=== PATIENT | female | born 1960 | race Caucasian/White ===

== ENCOUNTER 2019-12-12 12:15 | Outpatient (CLI) | payer MEDICAID, SELFPAY ==
--- NOTE | 2019-12-12 12:26 | XR_ITS ---
WS: [id number] XR cervical spine fl/ex [id number] REASON FOR EXAM: CERVICALGA FINDINGS: Degenerated changes in the disc spaces C5-6, C6-7. There is posterior spurring seen C4, C5, C6. There is normal flexion and extension changes. XR/XR cervical spine fl/ex [id number] IMPRESSION: Cervical spondylosis Degenerated disc changes C5-C6, C6-7.
[2019-12-12 13:08] LABS: Basophils % 0.6 %; Eosinophils # 0.2 10^3/uL (0.0-0.8); Eosinophils % 4.3 %; Hematocrit 36.9 % (37.0-47.0); Hemoglobin 11.7 g/dL (11.5-15.3); Lymphocytes # 1.5 10^3/uL (0.8-4.8); Lymphocytes % 30.8 %; Mean Corpuscular HGB Conc 31.7 g/dL (30.0-36.0); Mean Corpuscular Hemoglobin 25.7 pg (28.0-34.0); Mean Corpuscular Volume 81.1 fL (81-99); Mean Platelet Volume 9.7 fL (7.4-10.4); Monocytes # 0.4 10^3/uL (0.2-0.9); Monocytes % 7.2 %; Neutrophils # 2.8 10^3/uL (1.8-7.7); Neutrophils % 56.9 %; Nucleated Red Blood Cells % 0 %; Platelet Count 258 10^3/cmm (130-400); Red Blood Count 4.55 10^6/uL (4.1-5.3); White Blood Count 4.9 10^3/uL (4.0-10.0)
[2019-12-12 13:28] LABS: Alanine Aminotransferase 13 U/L (0-33); Albumin Level 4.1 g/dL (3.5-5.2); Alkaline Phosphatase 98 IU/L (35-105); Anion Gap 12.6 (5-19); Aspartate Amino Transferase 19 U/L (0-32); Blood Urea Nitrogen 10 mg/dL (6-20); Calcium 9.4 mg/dL (8.5-10.5); Carbon Dioxide 29 mmol/L (22-29); Chloride 104 mmol/L (98-107); Chol HDL Ratio 3.47 mg/dL (0.0-4.40); Cholesterol 184 mg/dL (0-200); Globulin 3.7 g/dL (1.3-4.6); Glomerular Filtration Rate 73.4 mL/min (90-130); Glucose 82 mg/dL (65-115); HDL Cholesterol 53 mg/dL (60-100); LDL Cholesterol Calculated 106 mg/dL (50-129); Osmolality Calculated 287 mOsm/kg (285-295); Potassium 4.6 mmol/L (3.5-5.1); Sodium 141 mmol/L (136-145); Total Bilirubin 0.2 mg/dL (0.15-1.2); Total Protein 7.8 g/dL (6.6-8.7); Triglycerides 127 mg/dL (0-150)
== END 2019-12-12 12:16 | disposition home or self-care (01) ==
LOC: RAD 12:18
PROVIDERS: Family Provider Family Medicine; PCP Family Medicine; Visit Provider Family Medicine
DX: M47.892 Other spondylosis, cervical region (principal); M54.2 Cervicalgia; I10 Essential (primary) hypertension
CPT/HCPCS: 36415; 72040; 80053; 80061; 84443; 85025

== ENCOUNTER 2020-03-19 15:56 | Outpatient (CLI) | payer MEDICAID, SELFPAY ==
--- NOTE | 2020-03-19 16:03 | MR_ITS ---
WS: [id number] MRI CERVICAL SPINE NONCONTRAST TECHNIQUE: Sagittal T1, T2 and STIR imaging. Axial T2, gradient, and fiesta imaging. CLINICAL INFORMATION: CERVICALGIA COMPARISON: None. FINDINGS: Straightening of the normal cervical lordosis. Mild spondylitic changes. No high-grade central canal stenosis. Cord signal is normal. C2-C3: Moderate left facet arthropathy. Mild left and no significant right foraminal narrowing. Spina l canal is patent. C3-C4: Disc osteophyte complex with moderate left foraminal narrowing. No significant right foraminal narrowing. Tiny central protrusion. Spinal canal is patent. C4-C5: Disc osteophyte complex with a small central protrusion. Moderate to severe left and no signif icant right foraminal narrowing. Advanced left facet arthropathy. C5-C6: Disc osteophyte complex with endplate ridging. Moderate to severe bilateral bony foraminal [place]. Mild facet arthropathy with uncovertebral joint hypertrophy. C6-C7: Small central disc protrusion with slight effacement of the ventral thecal sac. Mild central c anal stenosis. Moderate right and mild left bony foraminal narrowing. C7-T1: Osteophytic ridging. Mild bilateral bony foraminal narrowing. Spinal canal is patent. Visualized brain stem structures: Normal. Prevertebral soft tissues: Normal. MR/MR cervical spin wo con* [id number] IMPRESSION: 1. Straightening of the normal cervical lordosis. No high-grade central canal stenosis. Cord signal is normal. 2. Mild central canal stenosis C4-C6 with disc osteophyte complexes and small central protrusions. 3. Moderate to severe bony foraminal narrowing worse at left C3-C4, left C4-C5 , bilateral C5-C6, and right C6-C7. 4. Tiny central disc protrusions in the upper thoracic spine at T1-T2 and T2-3 . Mild right foraminal narrowing at these levels. 5. Asymmetric moderate facet arthropathy worse at left C2-3, left C3-4, and le ft C4/5
== END 2020-03-19 15:57 | disposition home or self-care (01) ==
LOC: RADWPI 16:02
PROVIDERS: Family Provider Family Medicine; PCP Family Medicine; Visit Provider Anesthesiology Pain Medicine
DX: M47.892 Other spondylosis, cervical region (principal); M48.02 Spinal stenosis, cervical region; M51.24 Other intervertebral disc displacement, thoracic region; M25.78 Osteophyte, vertebrae
CPT/HCPCS: 72141

== ENCOUNTER 2021-11-24 16:13 | Outpatient (CLI) | payer MEDICAID, SELFPAY ==
--- NOTE | 2021-11-24 16:28 | XR_ITS ---
WS: [id number] KUB, AP view, 11/24/2021 Clinical Data: HEMATURIA PAIN OF RIGHT SIDE Comparison: None. Findings: No abnormal intraabdominal masses or calcifications are seen. There is no dilatated small bowel or ev idence of obstruction. There is air in the stomach. There is a moderate amount of fecal material in the colon. XR/XR KUB [id number] Impression: Moderate amount of fecal material in the colon.
== END 2021-11-24 16:14 | disposition home or self-care (01) ==
LOC: RAD 16:23
PROVIDERS: PCP Family Medicine; Visit Provider Nurse Practitioner Family
DX: R31.9 Hematuria, unspecified (principal)
CPT/HCPCS: 74018

== ENCOUNTER 2022-02-17 10:06 | Outpatient (CLI) | payer MEDICAID, SELFPAY ==
--- NOTE | 2022-02-17 10:18 | CT_ITS ---
WS: [id number] CT ABDOMEN PELVIS TECHNIQUE: Noncontrast CT of the abdomen and pelvis with coronal and sagittal reformatted images. CLINICAL INFORMATION: ABDOMINAL PAIN/R FLANK PAIN COMPARISON: CT 2014 DLP: 1191.[address] scans at [facility] use at least one of these dose optimization techniques: automated e xposure control; mA and/or kV adjustment per patient size (includes targeted exams where dose is matc hed to clinical indication); or iterative reconstruction. FINDINGS: Lung bases are well aerated. Noncontrast liver is normal. Normal noncontrast spleen. Normal GE juncti on. Adrenal glands are normal. No obstructing renal or ureteral calculi. No hydronephrosis in either kidn ey. Tiny nonobstructing LEFT calyceal tip calculus. Normal noncontrast pancreas. Normal caliber abdominal aorta. Sigmoid diverticulosis. No evidence of acute diverticulitis. Tiny fat-containing umbilical hernia. No free fluid in the abdomen or pelvis. Grade 1 anterolisthesis L4 on L5 with vacuum disc phenomenon. CT/CT abdomen pelvis wo con [id number] IMPRESSION: 1. No obstructing renal or ureteral calculi. No hydronephrosis in either kidne y. 2. Tiny nonobstructing LEFT calyceal tip calculus. 3. No acute findings in the abdomen or pelvis. 4. Grade 1 anterolisthesis L4 on L5. This is progressed compared to 2014 with vacuum disc phenomenon 5. Prior hysterectomy.
== END 2022-02-17 10:07 | disposition home or self-care (01) ==
PROVIDERS: PCP Family Medicine; Visit Provider Nurse Practitioner Family
DX: R10.9 Unspecified abdominal pain (principal); M43.10 Spondylolisthesis, site unspecified
CPT/HCPCS: 74176

== ENCOUNTER 2022-03-24 03:17 | Emergency (ER) | payer MEDICAID, SELFPAY ==
[2022-03-24 03:44] VITALS: BP 115/73; PULSE 80; RESP 17; O2SAT 97; BMI 29.5
[2022-03-24] MEDS: ketorolac 30 mg/mL INJ IM (03:44)
[2022-03-24] MEDS: tetracaine 0.5% Op Soln 4 mL Btl 1 DROP EYE-LEFT (03:44)
[2022-03-24 03:49] VITALS: BP 115/73; PULSE 81; RESP 16; O2SAT 98
--- NOTE | 2022-03-24 03:50 | W.ED.EYEPROB ---
HPI - Eye Problem General: Chief complaint: Eye Problems Stated complaint: issues with left eye/seeing bright lights Time Seen by Provider: 03/24/22 03:31 Source: patient Mode of arrival: ambulatory Limitations: no limitations History of Present Illness: 61-year-old female who states that she has been seeing visual floaters through her left eye since Monday. She states that she actually saw an roll forming machine set up operator yesterday and is actually improved but she states she is concerned because tonight she saw brief flashing lights and had a mild headache she rated a 2 out of 10 and 1 make sure she had nothing going on. She denies any blurred vision denies any curtain coming down over her vision denies any blindness. She denies any pain does have a mild left-sided headache she rates a 2 out of 10. She states she is feels like she sees this floater that is actually decreased. Associated symptoms: Reports headache(s); Denies fever(s), nausea, neck pain or vomiting Review of Systems Const: Denies: fever(s), chills, body aches or change in appetite Eyes: Reports: seeing flashes ENMT: Denies: throat pain or dental pain Card: Denies: chest pain Resp: Denies: dyspnea GI: Denies: abdominal pain, nausea, vomiting or diarrhea : Denies: dysuria Musc: Denies: neck pain or back pain Skin/Breast: Denies: rash Neuro: Reports: headache(s) Psych: Denies: depression Agapito/Lymph: Denies: easy bruising All/Imm: Denies: urticaria Physical Exam Const: COMMON NORMALS: no acute distress, patient oriented x3 and healthy appearing HENMT: COMMON NORMALS: normocephalic and atraumatic HEAD & SCALP: normocephalic and atraumatic Eye: COMMON NORMALS: Equal, round and reactive pupils present and EOMs intact bilaterally PUPIL: Yes Equal, round and reactive pupils present Neck/C-Spine: COMMON NORMALS: full ROM and supple Chest: COMMONS NORMALS: normal inspection of the chest and normal palpation of entire chest wall Resp: COMMON NORMALS: normal respiratory effort, No retractions, No use of accessory muscles and clear to auscultation bilaterally AUSCULTATION: clear to auscultation bilaterally Cardio: COMMON NORMALS: regular rate, regular rhythm and No murmurs present (Cardio) RATE: regular rate RHYTHM: regular rhythm GI: COMMON NORMALS: Normal to inspection, nondistended, normoactive bowel sounds present, Soft to palpation, non-tender and no masses PALPATION: Yes Soft to palpation Extremity: COMMON NORMALS: normal to inspection and full ROM Neuro: COMMON NORMALS: patient oriented x3, moves all extremities and no focal motor deficits Psych: COMMON NORMALS: mental status grossly normal, Normal thought process present and cooperative THOUGHT PROCESS: Normal thought process present Skin: COMMON NORMALS: no rashes or lesions noted and no wounds GENERAL SKIN EXAM: no rashes or lesions noted Course Vital Signs: Vital signs: Vital Signs Pulse Rate 81 03/24/22 03:49 Respiratory Rate 16 03/24/22 03:49 Blood Pressure 115/73 03/24/22 03:49 Pulse Oximetry 98 03/24/22 03:49 MDM - Eye Problem Medical Decision Making Patient presents here with seeing floaters in her visual sesay of the left eye. She had seen an roll forming machine set up operator yesterday and since that text improved she is got concerned like she had a mild headache with some flashes in her vision. Her visual acuity here is actually 2020 she is to follow-up with Dr. Parker and return if worsening. Discharge Plan Discharge Patient Disposition: Home Clinical Impression: Headache, Visual disturbance Condition: Stable Discharge Orders: Discharge ED (Routine); Ordered 03/24/22 Ordered By: Sarath Schneider Referrals: Ling Lam NP [Primary Care Provider] - Mauro Parker MD [Physician] - 1-3 days Discharge Diet: Advance as tolerated Discharge Activity: Resume usual activity Patient Instructions: Visual Floaters (ED) Coding Level of Care Code ED Motor Scooter Repairer for Liana Argueta
[2022-03-24 04:05] VITALS: BP 110/71; PULSE 75; RESP 16; O2SAT 94
--- NOTE | 2022-03-30 14:37 | DCPLANNER ---
Addendum entered by Sarai Hung 04/08/22 12:15: Patient had a follow up appointment scheduled for 04.07.[address] Parker - patient did attend appointment. Original Note: automotive finance manager had message to schedule a follow up appointment for patient with . automotive finance manager faxed patients information to the office of Dr. Parker. Clinic will review patients information, and will call patient with appointment information.
== END 2022-03-24 04:07 | disposition home or self-care (01) ==
PROVIDERS: Emergency Provider Emergency Medicine; PCP Nurse Practitioner Family
DX: H53.9 Unspecified visual disturbance (principal); R51.9 Headache, unspecified
CPT/HCPCS: 96372; 99284; J1885

== ENCOUNTER 2022-10-20 00:20 | Emergency (ER) | payer MEDICAID, SELFPAY ==
[2022-10-20 00:21] VITALS: PULSE 85; RESP 14; TEMP 36.4; O2SAT 94; BMI 29.5
--- NOTE | 2022-10-20 00:24 | CTR_ITS ---
PROCEDURE INFORMATION: Exam: CT Abdomen And Pelvis With Contrast Exam date and time: 10/20/2022 1:12 AM Age: 62 years old Clinical indication: Nausea and vomiting; Abdominal pain; Generalized; Prior surgery; Surgery type: Partial hysto. Csection. Patient HX: Diffuse abd pain with n/v/d. TECHNIQUE: Imaging protocol: Computed tomography of the abdomen and pelvis with contrast. Radiation optimization: All CT scans at this facility use at least one of these dose optimization techniques: automated exposure control; mA and/or kV adjustment per patient size (includes targeted exams where dose is matched to clinical indication); or iterative reconstruction. Contrast material: OMNI 350; Contrast volume: 100 ml; Contrast route: INTRAVENOUS (IV); Other protocol: This patient has received [address] and 0 known cardiac nuclear medicine studies in the 12 months prior to the current study. COMPARISON: CT abdomen pelvis wo con [id number] 02/17/2022 10:36 AM RADIATION DOSE METRICS: Total DLP (mGy-cm): 862.23 FINDINGS: Liver: Hepatic steatosis. Gallbladder and bile ducts: Normal. No calcified stones. No ductal dilation. Pancreas: Normal. No ductal dilation. Spleen: Normal. No splenomegaly. Adrenal glands: Normal. No mass. Kidneys and ureters: Normal. No hydronephrosis. Stomach and bowel: Prominent fluid in the small bowel with some wall thickening and mucosal enhancement suggestive of an enteritis, negative for dilation. Minimal diverticulosis without diverticulitis. Appendix: No evidence of appendicitis. Intraperitoneal space: Unremarkable. No free air. No significant fluid collection. Vasculature: Unremarkable. No abdominal aortic aneurysm. Lymph nodes: Unremarkable. No enlarged lymph nodes. Urinary bladder: Unremarkable as visualized. Reproductive: Unremarkable as visualized. Bones/joints: Grade 1 anterolisthesis of L4 relative to L5 appears chronic. Soft tissues: Unremarkable. CT/CT abdomen pelvis w con* [id number] IMPRESSION: 1. Prominent fluid in the small bowel with some wall thickening and mucosal enhancement suggestive of an enteritis, negative for dilation. 2. Grade 1 anterolisthesis of L4 relative to L5 appears chronic. 3. Hepatic steatosis. 4. Minimal diverticulosis without diverticulitis.
--- NOTE | 2022-10-20 00:25 | ED_ITS ---
HPI - Abdominal Pain General: Chief Complaint: Nausea/Vomiting/Diarrhea Stated Complaint: N/V/ABD PAIN Time Seen by Provider: 10/20/22 00:21 Source: patient and EMS Mode of arrival: EMS Limitations: no limitations History of Present Illness: 62-year-old female is here by EMS states she been having abdominal cramping pain all day along with some vomiting and diarrhea she has had multiple episodes of vomiting states last episode was roughly 30 minutes ago she received Zofran ODT in route states she feels improved her pain is minimal at this time she denies any worsening proving factors denies any fevers. Associated Symptoms: Reports nausea and vomiting; Denies chills, dysuria and fever(s) Review of Systems Const: Denies: fever(s), chills, body aches or change in appetite Eyes: Denies: blurry vision or eye discomfort ENMT: Denies: throat pain or dental pain Card: Denies: chest pain Resp: Denies: dyspnea GI: Reports: abdominal pain, nausea and vomiting : Denies: dysuria Musc: Denies: neck pain or back pain Skin/Breast: Denies: rash Neuro: Denies: headache(s) Psych: Denies: depression Agapito/Lymph: Denies: easy bruising All/Imm: Denies: urticaria PFSH ED PFSH: Medical History Acute pharyngitis Social History Smoking and tobacco status: never smoked Physical Exam Const: COMMON NORMALS: no acute distress, patient oriented x3 and healthy appearing HENMT: COMMON NORMALS: normocephalic and atraumatic HEAD & SCALP: nor mocephalic and atraumatic Eye: COMMON NORMALS: Equal, round and reactive pupils present and EOMs intact bilaterally PUPIL: Yes Equal, round and reactive pupils present Neck/C-Spine: COMMON NORMALS: full ROM and supple Chest: COMMONS NORMALS: normal inspection of the chest and normal palpation of entire chest wall Resp: COMMON NORMALS: normal respiratory effort, No retractions, No use of accessory muscles and clear to auscultation bilaterally AUSCULTATION: clear to auscultation bilaterally Cardio: COMMON NORMALS: regular rate, regular rhythm and No murmurs present (Cardio) RATE: regular rate RHYTHM: regular rhythm GI: COMMON NORMALS: Normal to inspection, nondistended, normoactive bowel sounds present, Soft to palpation, non-tender and no masses PALPATION: Yes Soft to palpation Extremity: COMMON NORMALS: normal to inspection and full ROM Neuro: COMMON NORMALS: patient oriented x3, moves all extremities and no focal motor deficits Psych: COMMON NORMALS: mental status grossly normal, Normal thought process present and cooperative THOUGHT PROCESS: Normal thought process present Skin: COMMON NORMALS: no rashes or lesions noted and no wounds GENERAL SKIN EXAM: no rashes or lesions noted Course Vital Signs: Vital signs: Vital Signs Temperature 97.5 F L 10/20/22 00:21 Pulse Rate 85 10/20/22 00:21 Respiratory Rate 14 10/20/22 00:21 Pulse Oximetry 94 10/20/22 00:21 Oxygen Delivery Me thod 10/20/22 00:21 MDM - Abdominal Pain Medical Decision Making Patient presents here with vomiting along with some diffuse abdominal cramping likely from an enteritis CT scan shows this blood work is normal she feels improved here she is stable for discharge she is to follow-up PCP and return if worsening. We will prescribe her Zofran for home Lab Data 10/20/22 00:32 10/20/22 00:32 Labs/Radiology: Radiology Impressions Abdomen/Pelvis CT 10/20/22 00:24 IMPRESSION: 1. Prominent fluid in the small bowel with some wall thickening and mucosal enhancement suggestive of an enteritis, negative for dilation. 2. Grade 1 anterolisthesis of L4 relative to L5 appears chronic. 3. Hepatic steatosis. 4. Minimal diverticulosis without diverticulitis. Laboratory Results WBC 12.2 10^3/uL (4.0-10.0) H 10/20/22 00:32 RBC 5.11 10^6/uL (4.1-5.3) 10/20/22 00:32 Hgb 14.5 g/dL (11.5-15.3) 10/20/22 00:32 Hct 44.7 % (37.0-47.0) 10/20/22 00:32 MCV 87.5 fl (81-99) 10/20/22 00:32 MCH 28.4 pg (28.0-34.0) 10/20/22 00:32 MCHC 32.4 g/dL (30.0-36.0) 10/20/22 00:32 RDW 13.6 % (12.1-15.1) 10/20/22 00:32 Plt Count 267 10^3/cmm (130-400) 10/20/22 00:32 MPV 9.3 fL (7.4-10.4) 10/20/22 00:32 Neut % (Auto) 89.9 % 10/20/22 00:32 Lymph % (Auto) 4.9 % 10/20/22 00:32 [place] % (Auto) 3.3 % 10/20/22 00:32 Eos % (Auto) 1.2 % 10/20/22 00:32 Baso % (Auto) 0.4 % 10/20/22 00:32 Neut # (Auto) 10.93 10^3/uL (1.8-7.7) H 10/20/22 00:32 Lymph # (Auto) 0.6 10^3/uL (0.8-4.8) L 10/20/22 00:32 [place] # (Auto) 0.4 10^3/uL (0.2-0.9) 10/20/22 00:32 Eos # (Auto) 0.1 10^3/uL (0.0-0.8) 10/20/22 00:32 Baso # (Auto) 0.1 10^3/uL (0.0-0.1) 10/20/22 00:32 Nucleated RBC % (auto) 0 % 10/20/22 00: Nucleated RBCs # 0.0 /100WBC 10/20/22 00:32 Sodium 139 mmol/L (136-145) 10/20/22 00:32 Potassium 3.6 mmol/L (3.5-5.1) 10/20/22 00:32 Chloride 98 mmol/L (98-107) 10/20/22 00:32 Carbon Dioxide 26 mmol/L (22-29) 10/20/22 00:32 Anion Gap 18.6 (5-19) 10/20/22 00:32 BUN 17 mg/dL (8-23) 10/20/22 00:32 Creatinine 0.9 mg/dL (0.5-0.9) 10/20/22 00:32 GFR Calculation 63.4 mL/min (90-130) L 10/20/22 00:32 Glucose 151 mg/dL (65-115) H 10/20/22 00:32 Calculated Osmolality 292 mOsm/kg (285-295) 10/20/22 00:32 Lactate 1.5 mmol/L (0.5-2.2) 10/20/22 00:32 Calcium 9.4 mg/dL (8.5-10.5) 10/20/22 00:32 Total Bilirubin 0.3 mg/dL (0.15-1.2) 10/20/22 00:32 AST 25 U/L (0-32) 10/20/22 00:32 ALT 26 U/L (0-33) 10/20/22 00:32 Alkaline Phosphatase 95 U/L (35-105) 10/20/22 00:32 Total Protein 8.7 g/dL (6.6-8.7) 10/20/22 00:32 Albumin 5.1 g/dL (3.5-5.2) 10/20/22 00:32 Globulin 3.6 g/dL (1.3-4.6) 10/20/22 00:32 Lipase 23 U/L (13-60) 10/20/22 00:32 Urine Color Yellow (Yellow) 10/20/22 01:08 Urine Appearance Clear (CLEAR) 10/20/22 01:08 Urine pH 5 (5-7) 10/20/22 01:08 Ur Specific [place] 1.025 (1.005-1.030) 10/20/22 01:08 Urine Protein Neg (Negative) 10/20/22 01:08 Urine Glucose (UA) Norm (Normal) 10/20/22 01:08 Urine Ketones 1+ (Negative) H 10/20/22 01:08 Urine Blood Neg (Negative) 10/20/22 01:08 Urine Nitrate Negative (Negative) 10/20/22 01:08 Urine Bilirubin Neg (Negative) 10/20/22 01:08 Urine Urobilinogen Norm mg/dL (Negative) 10/20/22 01:08 Ur Leukocyte Esterase Negative (Negative) 10/20/22 01:08 Discharge Plan Discharge Patient Disposition: Home Clinical Impression: Vomiting, Abdominal pain Condition: Stable Prescriptions: New ondansetron 4 mg tablet,disintegrating 4 mg PO Q6H PRN (Reason: nausea and vomiting) Qty: 14 0RF No Action amitriptyline PO buspirone PO hydrocodone-acetaminophen 10-325 mg tablet 1 tab PO BID PRN labetalol PO omeprazole PO amoxicillin 875 mg tablet 875 mg PO BID Qty: 14 0RF loratadine 10 mg tablet 10 mg PO DAILY Qty: 30 0RF Discharge Orders: Discharge ED (Routine); Ordered 10/20/22 Ordered By: Sarath Schneider Referrals: Ling Lam NP [Primary Care Provider] - 1-3 days Discharge Diet: Advance as tolerated Discharge Activity: Resume usual activity Patient Instructions: Acute Nausea and Vomiting (ED), Abdominal Pain (ED) Coding Level of Care Code ED Campus Receptionist for Chg Fwd Exam Comprehensive
[2022-10-20] MEDS: sodium chloride 0.9% 1,000 ML 999 ML IV (00:34)
[2022-10-20] MEDS: ondansetron 2 mg/ML SDV 2 mL 4 MG IVP (00:34)
[2022-10-20 00:41] LABS: Basophils # 0.1 10^3/uL (0.0-0.1); Basophils % 0.4 %; Eosinophils # 0.1 10^3/uL (0.0-0.8); Eosinophils % 1.2 %; Hematocrit 44.7 % (37.0-47.0); Hemoglobin 14.5 g/dL (11.5-15.3); Lymphocytes # 0.6 10^3/uL (0.8-4.8); Lymphocytes % 4.9 %; Mean Corpuscular HGB Conc 32.4 g/dL (30.0-36.0); Mean Corpuscular Hemoglobin 28.4 pg (28.0-34.0); Mean Corpuscular Volume 87.5 fl (81-99); Mean Platelet Volume 9.3 fL (7.4-10.4); Monocytes # 0.4 10^3/uL (0.2-0.9); Monocytes % 3.3 %; Neutrophils # 10.93 10^3/uL (1.8-7.7); Neutrophils % 89.9 %; Nucleated Red Blood Cells % 0 %; Platelet Count 267 10^3/cmm (130-400); Red Blood Count 5.11 10^6/uL (4.1-5.3); Red Cell Distribution Width 13.6 % (12.1-15.1); White Blood Count 12.2 10^3/uL (4.0-10.0)
[2022-10-20 01:02] LABS: Lactate (Lactic Acid level) 1.5 mmol/L (0.5-2.2)
[2022-10-20 01:03] LABS: Alanine Aminotransferase 26 U/L (0-33); Albumin Level 5.1 g/dL (3.5-5.2); Alkaline Phosphatase 95 U/L (35-105); Anion Gap 18.6 (5-19); Aspartate Amino Transferase 25 U/L (0-32); Blood Urea Nitrogen 17 mg/dL (8-23); Calcium 9.4 mg/dL (8.5-10.5); Carbon Dioxide 26 mmol/L (22-29); Chloride 98 mmol/L (98-107); Globulin 3.6 g/dL (1.3-4.6); Glomerular Filtration Rate 63.4 mL/min (90-130); Glucose 151 mg/dL (65-115); Lipase 23 U/L (13-60); Osmolality Calculated 292 mOsm/kg (285-295); Potassium 3.6 mmol/L (3.5-5.1); Sodium 139 mmol/L (136-145); Total Bilirubin 0.3 mg/dL (0.15-1.2); Total Protein 8.7 g/dL (6.6-8.7)
[2022-10-20] MEDS: iohexol 350 mg/mL 500 mL Btl (per mL) IV (01:14)
[2022-10-20 01:27] LABS: Add Urine Microscopic? NO; Charge for UA Resulting for Rev
[2022-10-20 01:36] LABS: Bilirubin Urine Neg (Negative); Blood Urine Neg (Negative); Glucose Urine UA Norm (Normal); Ketones Urine 1+ (Negative); Leukocyte Esterase Urine Negative (Negative); Nitrate Urine Negative (Negative); Protein Urine Neg (Negative); Specific Gravity, Urine 1.025 (1.005-1.030); Urine Appearance Clear (CLEAR); Urine Color Yellow (Yellow); Urobilinogen Urine Norm (Negative); pH Urine 5 (5-7)
[2022-10-20] MEDS: ondansetron 4 MG Tablet PO (02:21)
[2022-10-20 02:22] VITALS: BP 107/81; PULSE 86; RESP 18; O2SAT 100
== END 2022-10-20 02:22 | disposition home or self-care (01) ==
PROVIDERS: Emergency Provider Emergency Medicine
DX: R11.11 Vomiting without nausea (principal); R10.9 Unspecified abdominal pain
CPT/HCPCS: 74177; 80053; 81003; 83605; 83690; 85025; 96361; 96374; 99285; J2405; J7030; Q0162; Q9967

== ENCOUNTER 2022-12-25 19:50 | Emergency (ER) | payer MEDICAID, SELFPAY ==
[2022-12-25 19:57] VITALS: BP 183/118; PULSE 87; RESP 16; TEMP 36.7; O2SAT 99; BMI 30.2
[2022-12-25 20:02] VITALS: BP 153/103; PULSE 80; RESP 16; O2SAT 94
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
[2022-12-25] MEDS: LORazepam 1 mg Tablet PO (20:22)
[2022-12-25 21:06] VITALS: BP 160/87; PULSE 77; RESP 16; O2SAT 94
== END 2022-12-25 21:06 | disposition home or self-care (01) ==
PROVIDERS: Emergency Provider Nurse Practitioner Family; PCP Nurse Practitioner Family
DX: F41.9 Anxiety disorder, unspecified (principal); I10 Essential (primary) hypertension
CPT/HCPCS: 99283

== ENCOUNTER 2023-06-27 08:59 | Outpatient (CLI) | payer MEDICAID, SELFPAY ==
--- NOTE | 2023-06-27 09:06 | MM_ITS ---
WS: [id number] BILATERAL 3D TOMOSYNTHESIS DIGITAL SCREENING MAMMOGRAPHY WITH CAD CLINICAL INFORMATION: SCREENING HISTORY: Screening mammogram. No current complaints. COMPARISON: 2014 TECHNIQUE: Bilateral CC and MLO views. FINDINGS: Scattered fibroglandular densities bilaterally. No suspicious focal mass, asymmetry, calcifications, or architectural distortion. No evidence of malignancy. Few incidental punctate and lucent centered c alcifications. Previously described asymmetry RIGHT breast from 2014 appears stable. IMPRESSION: MM/[place] [id number] BI-RADS: 2-Benign FOLLOW UP: 1 Year Follow-up Recommend return to annual screening mammography.
== END 2023-06-27 09:00 | disposition home or self-care (01) ==
PROVIDERS: PCP Nurse Practitioner Family; Visit Provider Nurse Practitioner Family
DX: Z12.31 Encounter for screening mammogram for malignant neoplasm of breast (principal)
CPT/HCPCS: 77063; 77067

== ENCOUNTER 2023-08-21 17:08 | Emergency (ER) | payer MEDICAID, SELFPAY ==
[2023-08-21] VITALS (10 sets, daily range): BP systolic 141–162; BP diastolic 91–108; PULSE 93–101; RESP 16–18; TEMP 36.5; O2SAT 96–100; BMI 27.3
--- NOTE | 2023-08-21 17:27 | W.ED.ABDPA2 ---
HPI - Abdominal Pain General: Chief Complaint: Abdominal Pain Stated Complaint: abd pain(7days) Time Seen by Provider: 08/21/23 17:24 Source: patient Mode of arrival: ambulatory History of Present Illness: Associated Symptoms: Denies chills, dysuria and fever(s) Review of Systems Const: Denies: fever(s) or chills Card: Denies: chest pain Resp: Denies: dyspnea GI: Denies: abdominal pain : Denies: dysuria, urinary frequency or urinary urgency Musc: Denies: neck pain or back pain Skin/Breast: Denies: rash PFSH ED PFSH: Medical History Acute pharyngitis Social History (Reviewed 08/21/23 @ 17: by Jayesh Carpenter DO) Smoking and tobacco/nicotine status: never used tobacco/nicotine Physical Exam Const: COMMON NORMALS: no acute distress GENERAL APPEARANCE: cooperative and comfortable ORIENTATION/CONSCIOUSNESS: Yes awake, Yes oriented to person, Yes oriented to place and Yes oriented to time HENMT: COMMON NORMALS: normocephalic, atraumatic and hearing grossly normal bilaterally HEAD & SCALP: normocephalic and atraumatic Resp: COMMON NORMALS: normal respiratory effort, No retractions, No use of accessory muscles and clear to auscultation bilaterally AUSCULTATION: clear to auscultation bilaterally Cardio: COMMON NORMALS: regular rate, regular rhythm and No murmurs present (Cardio) RATE: regular rate RHYTHM: regular rhythm GI: COMMON NORMALS: Soft to palpation and No hepatosplenomegaly present AUSCULTATION: Yes normoactive bowel sounds PALPATION: Yes Soft to palpation, No Tenderness to palpation present (GI), No Guarding due to palpation present (GI) and Yes No hepatosplenomegaly present Extremity: COMMON NORMALS: normal to inspection, capillary refill normal, no clubbing, cyanosis or edema, no calf tenderness and no pedal edema Neuro: SENSORIUM/ORIENTATION: Yes oriented to person, Yes oriented to place and Yes oriented to time Skin: COMMON NORMALS: no rashes or lesions noted GENERAL SKIN EXAM: no rashes or lesions noted Course Vital Signs: Vital signs: Vital Signs Temperature 97.7 F 08/21/23 17:20 Pulse Rate 101 H 08/21/23 17:20 Respiratory Rate 16 08/21/23 17:20 Blood Pressure 162/95 08/21/23 17:20 Pulse Oximetry 99 08/21/23 17:20 Oxygen Delivery Me thod Room Air 08/21/23 17:20 Discharge Plan Discharge Condition: Stable Prescriptions: No Action albuterol sulfate [Ventolin HFA] 90 mcg/actuation HFA aerosol inhaler 1 - 2 puff inhalation Q6H PRN (Reason: shortness of breath or wheezing) Qty: 8.5 0RF amitriptyline PO buspirone PO hydrocodone-acetaminophen 10-325 mg tablet 1 tab PO BID PRN labetalol PO omeprazole PO Referrals: Ling Lam NP [Primary Care Provider] - Coding Level of Care Code ED [employer] for [employer] Ellie
--- NOTE | 2023-08-21 17:59 | CTR_ITS ---
PROCEDURE INFORMATION: Exam: CT Abdomen And Pelvis With Contrast Exam date and time: 08/21/2023 7:31 PM Age: 63 years old Clinical indication: Abdominal pain; Generalized; Prior surgery; Surgery date: 6+ months; Surgery type: Hyst; Additional info: Abd pain TECHNIQUE: Imaging protocol: Computed tomography of the abdomen and pelvis with contrast. Radiation optimization: All CT scans at this facility use at least one of these dose optimization techniques: automated exposure control; mA and/or kV adjustment per patient size (includes targeted exams where dose is matched to clinical indication); or iterative reconstruction. Contrast material: OMNI 350; Contrast volume: 100 ml; Contrast route: INTRAVENOUS (IV); REPORTING DATA: Count of CT and Cardiac NM exams in prior 12 months: This patient has received [address] and 0 known cardiac nuclear medicine studies in the 12 months prior to the current study. COMPARISON: CT abdomen pelvis w con* [id number] 10/20/2022 1:12 AM RADIATION DOSE METRICS: Total DLP (mGy-cm): 663 FINDINGS: Liver: Unremarkable. Gallbladder and bile ducts: Gallbladder unremarkable. Mildly prominent proximal common bile duct measuring up to 8 mm, unchanged from 10/20/2022 exam. Pancreas: Mild pancreatic atrophy. No main duct dilation. Spleen: Unremarkable. Adrenal glands: Unremarkable. Kidneys and ureters: Peripheral linear areas of hypoattenuation in the right kidney. Mild caliceal fullness bilaterally. No hydroureter. No renal or ureteral calculi. Stomach and bowel: Scattered colonic diverticula without CT findings of acute diverticulitis. No bowel obstruction. Appendix: No evidence of appendicitis. Intraperitoneal space: Unremarkable. No free air. No significant fluid collection. Vasculature: No abdominal aortic aneurysm. Lymph nodes: No enlarged lymph nodes. Urinary bladder: Unremarkable as visualized. Reproductive: Hysterectomy. Bones/joints: No acute fracture. No aggressive osseous lesions. Degenerative changes of the spine. Soft tissues: Unremarkable. CT/CT abdomen pelvis w con* [id number] IMPRESSION: Findings suggesting right pyelonephritis. Recommend correlation with urinalysis.
--- NOTE | 2023-08-21 17:59 | ED_ITS ---
HPI - Abdominal Pain General: Chief Complaint: Abdominal Pain Stated Complaint: abd pain(7days) Time Seen by Provider: 08/21/23 17:24 Source: patient Mode of arrival: ambulatory Limitations: no limitations History of Present Illness: 63-year-old female states she has been having abdominal pain along with nausea vomiting for the last 5 or 6 days she states that today her pain is worsened. She states pain is in her right lower quadrant she rates it a 4 out of 10. She denies any fevers denies any worsening proving factors. Associated Symptoms: Reports nausea; Denies chills, diarrhea, dysuria, fever(s) and vomiting Review of Systems Const: Denies: fever(s), chills, body aches or change in appetite ENMT: Denies: throat pain or dental pain Card: Denies: chest pain Resp: Denies: dyspnea GI: Reports: abdominal pain and nausea; Denies: vomiting or diarrhea : Denies: dysuria Musc: Denies: neck pain or back pain Skin/Breast: Denies: rash Neuro: Denies: headache(s) PFS ED PFSH: Medical History Acute pharyngitis Social History Smoking and tobacco/nicotine status: never used tobacco/nicotine Physical Exam Const: COMMON NORMALS: no acute distress, patient oriented x3 and healthy appearing HENMT: COMMON NORMALS: normocephalic and atraumatic HEAD & SCALP: normocephalic and atraumatic Neck/C-Spine: COMMON NORMALS: full ROM and supple Chest: COMMONS NORMALS: normal inspection of the chest and normal palpation of entire chest wall Resp: COMMON NORMALS: normal respiratory effort, No retractions, No use of accessory muscles and clear to auscultation bilaterally AUSCULTATION: clear to auscultation bilaterally Cardio: COMMON NORMALS: regular rate, regular rhythm and No murmurs present (Cardio) RATE: regular rate RHYTHM: regular rhythm GI: COMMON NORMALS: Normal to inspection, nondistended, normoactive bowel sounds present, Soft to palpation and no masses PALPATION: Yes Soft to palpation and Yes Tenderness to palpation present (GI) Details: RLQ Extremity: COMMON NORMALS: normal to inspection and full ROM Neuro: COMMON NORMALS: patient oriented x3, moves all extremities and no focal motor deficits Psych: COMMON NORMALS: mental status grossly normal, Normal thought process present and cooperative THOUGHT PROCESS: Normal thought process present Skin: COMMON NORMALS: no rashes or lesions noted and no wounds GENERAL SKIN EXAM: no rashes or lesions noted Course Vital Signs: Vital signs: Vital Signs Temperature 97.7 F 08/21/23 17:20 Pulse Rate 100 08/21/23 20:26 Respiratory Rate 18 08/21/23 20:26 Blood Pressure 153/99 08/21/23 20:26 Pulse Oximetry 98 08/21/23 20:26 Oxygen Delivery Me thod Room Air 08/21/23 17:42 MDM - Abdominal Pain Medical Decision Making Patient presents for abdominal pain she was found to have pyelonephritis she is afebrile here white count is normal she does have some hypokalemia did give her potassium here. I did offer admission she states she would like to trial oral antibiotics at home first she stable at this point I feel she is able to be discharged to trial oral antibiotics as well we will start her on Cipro along with pain meds and potassium she is to follow-up her PCP next week and return if worsening. Medical Records I reviewed the patient's medical records. Lab Data I reviewed the patient's lab results. 08/21/23 17:53 08/21/23 17:53 Labs/Radiology: Radiology Impressions Abdomen/Pelvis CT 08/21/23 17:59 IMPRESSION: Findings suggesting right pyelonephritis. Recommend correlation with urinalysis. Laboratory Results WBC 9.30 10^3/uL (3.29-11.43) 08/21/23 17:53 RBC 4.72 10^6/uL (3.85-5.65) 08/21/23 17:53 Hgb 13.30 g/dL (11.27-16.99) 08/21/23 17:53 Hct 39.7 % (36-47) 08/21/23 17:53 MCV 84.1 fl (85-98) L 08/21/23 17:53 MCH 28.2 pg (27-33) 08/21/23 17:53 MCHC 33.5 g/dL (30-55) 08/21/23 17:53 RDW 12.4 % (12.1-15.1) 08/21/23 17:53 Plt Count 372 10^3/cmm (157-399) 08/21/23 17:53 MPV 9.2 fL (7.4-10.4) 08/21/23 17:53 Neut % (Auto) 68.5 % 08/21/23 17:53 Lymph % (Auto) 21.5 % 08/21/23 17:53 [place] % (Auto) 8.2 % 08/21/23 17:53 Eos % (Auto) 1.0 % 08/21/23 17:53 Baso % (Auto) 0.2 % 08/21/23 17:53 Neut # (Auto) 6.37 10^3/uL (1.8-7.7) 08/21/23 17:53 Lymph # (Auto) 2.0 10^3/uL (0.8-4.8) 08/21/23 17:53 [place] # (Auto) 0.8 10^3/uL (0.2-0.9) 08/21/23 17:53 Eos # (Auto) 0.1 10^3/uL (0.0-0.8) 08/21/23 17:53 Baso # (Auto) 0.0 10^3/uL (0.0-0.1) 08/21/23 17:53 Nucleated RBC % (auto) 0 % 08/21/23 17:53 Nucleated RBCs # 0.0 /100WBC 08/21/23 17:53 Sodium 131 mmol/L (136-145) L 08/21/23 17:53 Potassium 2.5 mmol/L (3.5-5.1) L* 08/21/23 17:53 Chloride 83 mmol/L (98-107) L 08/21/23 17:53 Carbon Dioxide 31 mmol/L (22-29) H 08/21/23 17:53 Anion Gap 19.5 (5-19) H 08/21/23 17:53 BUN 9 mg/dL (8-23) 08/21/23 17:53 Creatinine 1.0 mg/dL (0.5-0.9) H 08/21/23 17:53 GFR Calculation 56.0 mL/min (90-130) L 08/21/23 17:53 Glucose 109 mg/dL (65-115) 08/21/23 17:53 Calculated Osmolality 271 mOsm/kg (285-295) L 08/21/23 17:53 Calcium 9.3 mg/dL (8.5-10.5) 08/21/23 17:53 Magnesium 2.0 mg/dL (1.7-2.3) 08/21/23 17:53 Total Bilirubin 0.3 mg/dL (0.15-1.2) 08/21/23 17:53 AST 13 U/L (0-32) 08/21/23 17:53 ALT 13 U/L (0-33) 08/21/23 17:53 Alkaline Phosphatase 78 U/L (35-105) 08/21/23 17:53 Total Protein 8.0 g/dL (6.6-8.7) 08/21/23 17:53 Albumin 4.2 g/dL (3.5-5.2) 08/21/23 17:53 Globulin 3.8 g/dL (1.3-4.6) 08/21/23 17:53 Lipase 22 U/L (13-60) 08/21/23 17:53 Urine Color Yellow (Yellow) 08/21/23 17:56 Urine Appearance Cloudy (CLEAR) A 08/21/23 17:56 Urine pH 5 (5-7) 08/21/23 17:56 Ur Specific [place] 1.015 (1.005-1.030) 08/21/23 17:56 Urine Protein 1+ (Negative) H 08/21/23 17:56 Urine Glucose (UA) Norm (Normal) 08/21/23 17:56 Urine Ketones Negative (Negative) 08/21/23 17:56 Urine Blood 2+ (Negative) H 08/21/23 17:56 Urine Nitrate Negative (Negative) 08/21/23 17:56 Urine Bilirubin Neg (Negative) 08/21/23 17:56 Urine Urobilinogen Norm mg/dL (Negative) 08/21/23 17:56 Ur Leukocyte Esterase 2+ (Negative) H 08/21/23 17:56 Urine RBC 5-10 /hpf (0-2) H 08/21/23 17:56 Urine WBC >100 /hpf (0-5) H 08/21/23 17:56 Ur Squamous Epith Cells 0-4 /hpf (0-5) H 08/21/23 17:56 Amorphous Sediment Not Reportable 08/21/23 17:56 Urine Bacteria 1+ /hpf (NONE) H 08/21/23 17:56 All radiology interpretation(s) finalized by discharge Discharge Plan Discharge Patient Disposition: Home Clinical Impression: Pyelonephritis, Hypokalemia Condition: Stable Prescriptions: New hydrocodone-acetaminophen 5-325 mg tablet 1 tab PO Q6H PRN (Reason: pain) Qty: 14 0RF Cipro 500 mg tablet 500 mg PO BID Qty: 14 0RF ondansetron 4 mg tablet,disintegrating 4 mg PO Q6H PRN (Reason: nausea and vomiting) Qty: 14 0RF potassium chloride 20 mEq packet 20 meq PO BID 7 Days Qty: 30 0RF No Action albuterol sulfate [Ventolin HFA] 90 mcg/actuation HFA aerosol inhaler 1 - 2 puff inhalation Q6H PRN (Reason: shortness of breath or wheezing) Qty: 8.5 0RF amitriptyline PO buspirone PO hydrocodone-acetaminophen 10-325 mg tablet 1 tab PO BID PRN labetalol PO omeprazole PO Discharge Orders: Discharge ED (Routine); Ordered 08/21/23 Ordered By: Sarath Schneider Referrals: Ling Lam NP [Primary Care Provider] - 4-7 days Discharge Diet: Advance as tolerated Discharge Activity: Resume usual activity Patient Instructions: Hypokalemia (ED), Kidney Infection (ED), Opioid Safety Coding Level of Care Code ED Water Vessel Captain for Liaan Argueta
[2023-08-21] MEDS: ondansetron 2 mg/ML SDV 2 mL 4 MG IVP (18:05)
[2023-08-21 18:09] LABS: Basophils % 0.2 %; Eosinophils # 0.1 10^3/uL (0.0-0.8); Hematocrit 39.7 % (36-47); Lymphocytes % 21.5 %; Mean Corpuscular HGB Conc 33.5 g/dL (30-55); Mean Corpuscular Hemoglobin 28.2 pg (27-33); Mean Corpuscular Volume 84.1 fl (85-98); Mean Platelet Volume 9.2 fL (7.4-10.4); Monocytes # 0.8 10^3/uL (0.2-0.9); Monocytes % 8.2 %; Neutrophils # 6.37 10^3/uL (1.8-7.7); Neutrophils % 68.5 %; Nucleated Red Blood Cells % 0 %; Platelet Count 372 10^3/cmm (157-399); Red Blood Count 4.72 10^6/uL (3.85-5.65); Red Cell Distribution Width 12.4 % (12.1-15.1)
[2023-08-21 18:32] LABS: Alanine Aminotransferase 13 U/L (0-33); Albumin Level 4.2 g/dL (3.5-5.2); Alkaline Phosphatase 78 U/L (35-105); Anion Gap 19.5 (5-19); Aspartate Amino Transferase 13 U/L (0-32); Blood Urea Nitrogen 9 mg/dL (8-23); Calcium 9.3 mg/dL (8.5-10.5); Carbon Dioxide 31 mmol/L (22-29); Chloride 83 mmol/L (98-107); Globulin 3.8 g/dL (1.3-4.6); Glucose 109 mg/dL (65-115); Lipase 22 U/L (13-60); Osmolality Calculated 271 mOsm/kg (285-295); Sodium 131 mmol/L (136-145); Total Bilirubin 0.3 mg/dL (0.15-1.2)
[2023-08-21 18:34] LABS: Specific Gravity, Urine 1.015 (1.005-1.030); Urine Appearance Cloudy (CLEAR); Urine Color Yellow (Yellow); pH Urine 5 (5-7)
[2023-08-21 18:35] LABS: Add Urine Microscopic? YES; Bilirubin Urine Neg (Negative); Blood Urine 2+ (Negative); Glucose Urine UA Norm (Normal); Ketones Urine Negative (Negative); Leukocyte Esterase Urine 2+ (Negative); Nitrate Urine Negative (Negative); Protein Urine 1+ (Negative); Urobilinogen Urine Norm (Negative)
[2023-08-21 18:36] LABS: Add Urine Culture? Yes; Bacteria Urine 1+ /hpf; Squamous Epithelial Cell Urine 0-4 /hpf (0-5); WBC Urine >100 /hpf (0-5)
[2023-08-21] MEDS: cefTRIAXone 1,000 MG in sodium chloride 0.9% (plus) 50 ML 100 MG IV (18:42)
[2023-08-21 19:20] LABS: Potassium 2.5 mmol/L (3.5-5.1)
[2023-08-21] MEDS: iohexol 350 mg/mL 500 mL Btl (per mL) IV (19:34)
[2023-08-21] MEDS: potassium chloride ER 20 mEq Tablet 60 MEQ PO (20:30)
== END 2023-08-21 20:31 | disposition home or self-care (01) ==
PROVIDERS: Family Medicine; Emergency Provider Emergency Medicine; PCP Nurse Practitioner Family
DX: N12 Tubulo-interstitial nephritis, not specified as acute or chronic (principal); E87.6 Hypokalemia
CPT/HCPCS: 74177; 80053; 81001; 83690; 83735; 85025; 87077; 87086; 87186; 96374; 96375; 99285; J0696; J2405; Q9967

== ENCOUNTER → 2023-12-28 09:45 | Outpatient (BNVA) | payer MEDICAID, SELFPAY | PROVIDERS: PCP Nurse Practitioner Family; Visit Provider Otolaryngology | DX: H93.13 Tinnitus, bilateral; H90.3 Sensorineural hearing loss, bilateral | CPT/HCPCS: 99203; 99204 ==

== ENCOUNTER 2024-04-04 10:44 | Outpatient (CLI) | payer MEDICAID, SELFPAY ==
--- NOTE | 2024-04-04 10:52 | XRR_ITS ---
PROCEDURE INFORMATION: Exam: XR Right Knee Exam date and time: 04/04/2024 11:09 AM Age: 63 years old Clinical indication: Pain; Knee; Right; Patient HX: Fell 2 months ago and has fallen three times since; Additional info: Pain in R knee TECHNIQUE: Imaging protocol: Radiologic exam of the right knee. Views: 1 or 2 views. COMPARISON: No relevant prior studies available. FINDINGS: Bones/joints: Normal. No acute osseous, joint, or soft tissue abnormality. Soft tissues: Normal. XR/XR knee RT 1-2V [id number] IMPRESSION: No acute findings.
== END 2024-04-04 10:45 | disposition home or self-care (01) ==
PROVIDERS: PCP Nurse Practitioner Family; Visit Provider Nurse Practitioner Family
DX: M25.561 Pain in right knee (principal)
CPT/HCPCS: 73560

== ENCOUNTER 2024-10-19 08:52 | Emergency (ER) | payer OTHER, MEDICAID, SELFPAY ==
--- NOTE | 2024-10-19 08:55 | ECG_ITS ---
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 Measurements Intervals [place] Rate: 102 P: 70 UT: 153 QRS: -42 QRSD: 109 T: 70 QT: 345 QTc: 450 Interpretive Statements SINUS TACHYCARDIA POSSIBLE LEFT ATRIAL ENLARGEMENT [-0.1mV P-WAVE IN V1/V2] LEFT AXIS DEVIATION [QRS AXIS < -30] LOW QRS VOLTAGE IN PRECORDIAL LEADS [QRS DEFLECTION < 1.0 mV IN CHEST LEADS] POSSIBLE ANTERIOR MYOCARDIAL INFARCTION , OF INDETERMINATE AGE [30 ms Q WAVE IN V3/V4, OR R < 0.2 mV IN V4] No previous ECG available for comparison Electronically Signed On 10-19-2024 23:04:12 BUS ESCORT by Adalberto Barahona M.D. [email or web address]
--- NOTE | 2024-10-19 08:55 | XRR_ITS ---
PROCEDURE INFORMATION: Exam: XR Chest Exam date and time: 10/19/2024 10:38 AM Age: 64 years old Clinical indication: Cough and dyspnea; Additional info: Dyspnea/cough TECHNIQUE: Imaging protocol: Radiologic exam of the chest. Views: 1 view. COMPARISON: CR XR chest 1V [id number] 05/25/2018 7:45 PM FINDINGS: Lungs: Unremarkable. No consolidation. Pleural spaces: Unremarkable. No pleural effusion. No pneumothorax. Heart/Mediastinum: Unremarkable. No cardiomegaly. Bones/joints: Unremarkable. XR/XR chest 1V portable [id number] IMPRESSION: No acute findings.
[2024-10-19 09:05] VITALS: BP 163/92; PULSE 110; RESP 17; TEMP 36.6; O2SAT 99; BMI 28.0
[2024-10-19 10:04] LABS: Basophils % 0.3 %; Eosinophils # 0.1 10^3/uL (0.0-0.8); Eosinophils % 1.3 %; Hematocrit 41.2 % (36-47); Lymphocytes % 17.1 %; Mean Corpuscular HGB Conc 32.3 g/dL (30-55); Mean Corpuscular Hemoglobin 28.5 pg (27-33); Mean Corpuscular Volume 88.2 fl (85-98); Mean Platelet Volume 9.7 fL (7.4-10.4); Monocytes # 0.4 10^3/uL (0.2-0.9); Monocytes % 7.3 %; Neutrophils # 4.43 10^3/uL (1.8-7.7); Neutrophils % 73.8 %; Nucleated Red Blood Cells % 0 %; Platelet Count 282 10^3/cmm (157-399); Red Blood Count 4.67 10^6/uL (3.85-5.65); Red Cell Distribution Width 13.6 % (12.1-15.1); White Blood Count 6.01 10^3/uL (3.29-11.43)
[2024-10-19 10:31] LABS: Alanine Aminotransferase 13 U/L (0-33); Albumin Level 4.6 g/dL (3.5-5.2); Alkaline Phosphatase 92 U/L (35-105); Anion Gap 18.4 (5-19); Aspartate Amino Transferase 20 U/L (0-32); Blood Urea Nitrogen 20 mg/dL (8-23); Calcium 9.7 mg/dL (8.5-10.5); Carbon Dioxide 27 mmol/L (22-29); Chloride 94 mmol/L (98-107); Creatinine Clr Calc Pharmacy 60.5162; Globulin 3.5 g/dL (1.3-4.6); Glucose 98 mg/dL (65-115); Osmolality Calculated 285 mOsm/kg (285-295); Potassium 3.4 mmol/L (3.5-5.1); Sodium 136 mmol/L (136-145); Total Bilirubin 0.6 mg/dL (0.15-1.2); Total Protein 8.1 g/dL (6.6-8.7)
--- NOTE | 2024-10-19 10:56 | ECG_ITS ---
[facility] Date: 2024-10-19 Pat Name: Johnna Strange Department: Room: Gender: Female Inside Sales: : 1960 Requested By: Aman Otto Order Number: [id number] Josephine MD: Adalberto Barahona M.D. Measurements Intervals [place] Rate: 89 P: 61 CT: 161 QRS: -30 QRSD: 100 T: 69 QT: 378 QTc: 460 Interpretive Statements SINUS RHYTHM LOW QRS VOLTAGE IN PRECORDIAL LEADS [QRS DEFLECTION < 1.0 mV IN CHEST LEADS] POSSIBLE ANTERIOR MYOCARDIAL INFARCTION , OF INDETERMINATE AGE [30 ms Q WAVE IN V3/V4, OR R < 0.2 mV IN V4] Compared to ECG 10/19/2024 09:02:36 Sinus tachycardia no longer present Left-axis deviation no longer present Myocardial infarct finding still present Electronically Signed On 10-19-2024 22:59:43 BLENDING KETTLE TENDER by Adalberto Barahona M.D. [email or web address]
[2024-10-19 11:07] VITALS: BP 156/76; PULSE 90; RESP 16; O2SAT 94
[2024-10-19 11:15] LABS: Troponin(5th) Baseline < 6 ng/L (0-10)
--- NOTE | 2024-10-19 11:32 | PC.PHAR ---
Pt verified medications but was not sure of strengths. Verified all medications, strength, directions and days supply with Raisa. Pt states is allergic to the Estradiol Cream. Raisa verified she has been picking it up on a regular basis.
[2024-10-19 11:37] VITALS: BP 154/103; PULSE 93; RESP 17; O2SAT 100
--- NOTE | 2024-10-19 12:00 | ED_ITS ---
HPI - General Adult 2 General: Chief complaint: General Medical Stated complaint: high BP Time Seen by Provider: 10/19/24 10:35 History of Present Illness: Patient is a nontoxic 64-year-old female who presents to the ER with complaint of hypertension. She states that she has felt like her blood pressure has been running high the last several days. She reports being somewhat noncompliant with her blood pressure medication because her labetalol seems to make her nauseated. She has had some nausea vomiting associated taking it and other times is just decided not to take it. She states she got a new blood pressure machine yesterday and it has read elevated readings the last 2 time she is checked it with readings around 160/100. She denies any current chest pain or shortness of breath but does states she has some heaviness from time to time. She denies any headaches. No confusion. No fevers or chills. She denies any history of coronary disease. Associated symptoms: Reports chest pain, nausea and vomiting; Deny dyspnea, headache(s) or rash Related Data Home Medications Medication Instructions Recorded Confirmed amitriptyline 150 mg tablet 150 mg PO BEDTIME 12/28/23 10/19/24 buspirone 5 mg tablet 5 mg PO TID 12/28/23 10/19/24 fluticasone propionate 50 1 spray intranasal DAILY PRN 12/28/23 10/19/24 mcg/actuation nasal allergies spray,suspension (Allergy Relief (fluticasone)) hydrochlorothiazide 50 mg tablet 50 mg PO DAILY 12/28/23 10/19/24 estradiol 0.01% (0.1 mg/gram) See Rx Instructions .Route .COMPLEX 10/19/24 10/19/24 vaginal cream hydrocodone 5 mg-acetaminophen 325 1 - 2 tab PO .Q4-6H PRN pain 10/19/24 10/19/24 mg tablet labetalol 200 mg tablet 200 mg PO BID 10/19/24 10/19/24 omeprazole 20 mg tablet,delayed 20 mg PO DAILY 10/19/24 10/19/24 release potassium chloride 10 mEq 10 meq PO DAILY 10/19/24 10/19/24 tablet,extended release Previous Rx's Medication Instructions Recorded albuterol sulfate 90 mcg/actuation 1 - 2 puff inhalation Q6H PRN 02/27/23 aerosol inhaler (Ventolin HFA) shortness of breath or wheezing #8.5 grams ondansetron 4 mg disintegrating 4 mg PO Q6H PRN nausea and 10/19/24 tablet vomiting #14 tabs Allergies Allergy/AdvReac Type Severity Reaction Status Date / Time duloxetine [From Cymbalta] Allergy Unknown Verified 04/15/24 07:46 morphine Allergy ADR-Nausea Verified 04/15/24 07:46 Review of Systems 2 Const: Denies: fever(s), chills or body aches Eyes: Denies: change in vision Card: Reports: chest pain Resp: Denies: dyspnea GI: Reports: nausea and vomiting; Denies: abdominal pain Skin/Breast: Denies: rash Neuro: Denies: headache(s) PFSH ED 2 PFSH: Medical History Acute pharyngitis Surgical History Hx of colonoscopy History of esophagogastroduodenoscopy (EGD) Hx of section Hx of laparoscopy Hx of hysterectomy Family History Mother Hypertension Diabetes Brother Hypertension Sister Hypertension Denies family history of Colon cancer Ovarian cancer Prostate cancer Heart disease Hypercholesteremia Breast cancer Uterine cancer Thyroid disease Stroke Physical Exam 2 Const: COMMON NORMALS: no acute distress, average body habitus, alert and well nourished GENERAL APPEARANCE: cooperative ORIENTATION/CONSCIOUSNESS: Yes awake OTHER: Awake and alert 64-year-old female in no acute distress HENMT: COMMON NORMALS: normocephalic and atraumatic HEAD & SCALP: n ormocephalic and atraumatic Eye: COMMON NORMALS: EOMs intact bilaterally and conjunctivae normal C ONJUNCTIVA: Yes conjunctivae normal Neck/C-Spine: GENERAL: Yes normal visual inspection Resp: COMMON NORMALS: normal respiratory effort, No retractions, No use of accessory muscles and clear to auscultation bilaterally AUSCULTATION: clear to auscultation bilaterally Cardio: COMMON NORMALS: regular rate, regular rhythm, S1 normal heart sound present, S2 normal heart sound present, No murmurs present (Cardio) and Peripheral pulses 2+ throughout RATE: regular rate RHYTHM: regular rhythm HEART SOUNDS: S1 normal heart sound present and S2 normal heart sound present PERIPHERAL PULSES: Peripheral pulses 2+ throughout GI: COMMON NORMALS: Soft to palpation and non-tender PALPATION: Yes Soft to palpation Extremity: COMMON NORMALS: normal to inspection, full ROM, no calf tenderness and no pedal edema Neuro: COMMON NORMALS: no focal motor deficits SENSORIUM/ORIENTATION: Yes alert Skin: COMMON NORMALS: no rashes or lesions noted GENERAL SKIN EXAM: no rashes or lesions noted Course 2 Vital Signs: Vital signs: Vital Signs Temperature 97.8 F 10/19/24 09:05 Pulse Rate 88 10/19/24 12:37 Respiratory Rate 16 10/19/24 12:37 Blood Pressure 155/101 10/19/24 12:37 Pulse Oximetry 100 10/19/24 12:37 Oxygen Delivery Me thod Room Air 10/19/24 12:37 MDM - General Adult Medical Decision Making Patient is a nontoxic 64-year-old female who presents to the ER with primary complaint of hypertension. She has not taken her blood pressure medicine today and has not been taking it very compliantly due to some nausea. She denies any fevers or chills. No abdominal pain or discomfort. Basic labs were obtained including a CBC, CMP and troponin which were unremarkable. Chest x-ray is unremarkable. She did have an elevated D-dimer and a CT of the chest was obtained which is negative for PE. EKG is sinus rhythm without any ischemic ST changes. She was given 1 dose of labetalol with improvement of her blood pressure here. On recheck it is 130/89. Heart rate is 83. Pulse ox is 100% on room air. Patient will be prescribed some Zofran to use as needed for nausea. She states she currently takes omeprazole daily. I recommend she follow-up with her PCP to discuss her nausea this been a chronic issue and if provided strict return precautions. Lab Data I reviewed the patient's lab results. 10/19/24 09:49 10/19/24 09:49 Radiology Impressions Chest X-Ray 10/19/24 08:55 IMPRESSION: No acute findings. Chest CTA 10/19/24 12:04 IMPRESSION: No pulmonary embolism. Laboratory Results WBC 6.01 10^3/uL (3.29-11.43) 10/19/24 09:49 RBC 4.67 10^6/uL (3.85-5.65) 10/19/24 09:49 Hgb 13.30 g/dL (11.27-16.99) 10/19/24 09:49 Hct 41.2 % (36-47) 10/19/24 09:49 MCV 88.2 fl (85-98) 10/19/24 09:49 MCH 28.5 pg (27-33) 10/19/24 09:49 MCHC 32.3 g/dL (30-55) 10/19/24 09:49 RDW 13.6 % (12.1-15.1) 10/19/24 09:49 Plt Count 282 10^3/cmm (157-399) 10/19/24 09:49 MPV 9.7 fL (7.4-10.4) 10/19/24 09:49 Neut % (Auto) 73.8 % 10/19/24 09:49 Lymph % (Auto) 17.1 % 10/19/24 09:49 Mccreary % (Auto) 7.3 % 10/19/24 09:49 Eos % (Auto) 1.3 % 10/19/24 09:49 Baso % (Auto) 0.3 % 10/19/24 09:49 Neut # (Auto) 4.43 10^3/uL (1.8-7.7) 10/19/24 09:49 Lymph # (Auto) 1.0 10^3/uL (0.8-4.8) 10/19/24 09:49 Mccreary # (Auto) 0.4 10^3/uL (0.2-0.9) 10/19/24 09:49 Eos # (Auto) 0.1 10^3/uL (0.0-0.8) 10/19/24 09:49 Baso # (Auto) 0.0 10^3/uL (0.0-0.1) 10/19/24 09:49 Nucleated RBC % (auto) 0 % 10/19/24 09:49 Nucleated RBCs # 0.0 /100WBC 10/19/24 09:49 D-Dimer 1.20 ug/mLFEU (0-0.59) H 10/19/24 09:49 Sodium 136 mmol/L (136-145) 10/19/24 09:49 Potassium 3.4 mmol/L (3.5-5.1) L 10/19/24 09:49 Chloride 94 mmol/L (98-107) L 10/19/24 09:49 Carbon Dioxide 27 mmol/L (22-29) 10/19/24 09:49 Anion Gap 18.4 (5-19) 10/19/24 09:49 BUN 20 mg/dL (8-23) 10/19/24 09:49 Creatinine 1.1 mg/dL (0.5-0.9) H 10/19/24 09:49 GFR Calculation 50.0 mL/min (90-130) L 10/19/24 09:49 Glucose 98 mg/dL (65-115) 10/19/24 09:49 Calculated Osmolality 285 mOsm/kg (285-295) 10/19/24 09:49 Calcium 9.7 mg/dL (8.5-10.5) 10/19/24 09:49 Total Bilirubin 0.6 mg/dL (0.15-1.2) 10/19/24 09:49 AST 20 U/L (0-32) 10/19/24 09:49 ALT 13 U/L (0-33) 10/19/24 09:49 Alkaline Phosphatase 92 U/L (35-105) 10/19/24 09:49 Troponin T Baseline < 6 ng/L (0-10) 10/19/24 09:49 Troponin T 120 Minute 7.35 ng/L (0-10) 10/19/24 11:58 Delta Troponin T 1.30183 ABS# (0-10) 10/19/24 11:58 Total Protein 8.1 g/dL (6.6-8.7) 10/19/24 09:49 Albumin 4.6 g/dL (3.5-5.2) 10/19/24 09:49 Globulin 3.5 g/dL (1.3-4.6) 10/19/24 09:49 All radiology interpretation(s) finalized by discharge Discharge Plan Discharge Patient Disposition: Home Clinical Impression: Nausea Hypertension Qualifiers: Hypertension type: primary hypertension Qualified Code(s): I10 - Essential (primary) hypertension Chest pain Qualifiers: Chest pain type: unspecified Qualified Code(s): R07.9 - Chest pain, unspecified Condition: Stable Prescriptions: New ondansetron 4 mg tablet,disintegrating 4 mg PO Q6H PRN (Reason: nausea and vomiting) Qty: 14 0RF No Action albuterol sulfate [Ventolin HFA] 90 mcg/actuation HFA aerosol inhaler 1 - 2 puff inhalation Q6H PRN (Reason: shortness of breath or wheezing) Qty: 8.5 0RF amitriptyline 150 mg tablet 150 mg PO BEDTIME buspirone 5 mg tablet 5 mg PO TID fluticasone propionate [Allergy Relief (fluticasone)] 50 mcg/actuation spray,suspension 1 spray intranasal DAILY PRN (Reason: allergies) Rx Instructions: administer into each nostril hydrochlorothiazide 50 mg tablet 50 mg PO DAILY labetalol 200 mg Tablet 200 mg PO BID potassium chloride 10 mEq Tablet Extended Release 10 meq PO DAILY omeprazole 20 mg Tablet,Delayed Release (Dr/Ec) 20 mg PO DAILY hydrocodone-acetaminophen 5-325 mg tablet 1 - 2 tab PO .Q4-6H MDD 6 tab PRN (Reason: pain) estradiol 0.01 % (0.1 mg/gram) Cream See Rx Instructions .ROUTE .COMPLEX Rx Instructions: Insert 1 gram vaginally twice daily for 14 days, then twice weekly. Discharge Orders: Discharge ED (Routine); Ordered 10/19/24 Ordered By: Aman Otto Referrals: Ling Lam NP [Primary Care Provider] - Discharge Diet: Advance as tolerated Discharge Activity: Resume usual activity Patient Instructions: Opioid Safety, Pain Management, Chronic Hypertension (ED) Activity Restrictions/Additional Instructions: Take all medication as directed. Follow-up with your primary care provider for recheck next week. Return to the ER for any new or worsening symptoms or any other concerns. Coding Level of Care Code ED Continuous Improvement Director for Liana Argueta
--- NOTE | 2024-10-19 12:04 | CTR_ITS ---
PROCEDURE INFORMATION: Exam: CTA Chest With Contrast Exam date and time: 10/19/2024 12:45 PM Age: 64 years old Clinical indication: Pain; Chest pressure; Additional info: Chest pain, elevated d dimer TECHNIQUE: Imaging protocol: Computed tomographic angiography of the chest with contrast. Exam focused on the arteries. 3D rendering (Not supervised by radiologist): MIP and/or 3D reconstructed images were created by the technologist. Radiation optimization: All CT scans at this facility use at least one of these dose optimization techniques: automated exposure control; mA and/or kV adjustment per patient size (includes targeted exams where dose is matched to clinical indication); or iterative reconstruction. Contrast material: [id number]; Contrast volume: 57 ml; Contrast route: INTRAVENOUS (IV); COMPARISON: CR (CHEST, ) 10/19/2024 10:38 AM RADIATION DOSE METRICS: Total DLP (mGy-cm): 190.95 FINDINGS: Pulmonary arteries: The pulmonary arteries are adequately opacified for evaluation to the subsegmental level. There is no filling defect to suggest embolism. Aorta: The aorta is unremarkable. There is no aneurysm. Lungs: Lungs are clear. Pleural spaces: There is no pleural effusion or pneumothorax. Heart: Heart size is normal. There is no pericardial effusion. Lymph nodes: Mildly prominent nonspecific bilateral hilar lymph nodes. No elisabet pathologic lymphadenopathy. Intraperitoneal space: Visible structures in the upper abdomen are unremarkable. Bones/joints: Bones are unremarkable. Soft tissues: The extrathoracic soft tissues are unremarkable. CT/CT angio chest PE protcl [id number] IMPRESSION: No pulmonary embolism.
[2024-10-19 12:07] VITALS: BP 148/98; PULSE 91; RESP 16; O2SAT 95
[2024-10-19 12:21] LABS: Troponin 5 2HR 7.35 ng/L (0-10); Troponin 5 2HR Delta 1.35001 ABS# (0-10)
[2024-10-19 12:37] VITALS: BP 155/101; PULSE 88; RESP 16; O2SAT 100
[2024-10-19] MEDS: iohexol 350 mg/mL 500 mL Btl (per mL) IV (12:48)
[2024-10-19] MEDS: ondansetron 2 mg/ML SDV 2 mL 4 MG IVP (13:09)
[2024-10-19] MEDS: LORazepam 2 mg/mL INJ 1 mL 1 MG IVP (13:09)
[2024-10-19] MEDS: labetalol 5 mg/mL SDV 20mL 10 MG IVP (13:50)
[2024-10-19 14:59] VITALS: BP 112/93; PULSE 94; RESP 17; O2SAT 94
== END 2024-10-19 14:58 | disposition home or self-care (01) ==
PROVIDERS: Family Medicine; Emergency Provider Student in an Organized Health Care Education/Training Program; PCP Nurse Practitioner Family
DX: R11.0 Nausea (principal); I10 Essential (primary) hypertension; R07.9 Chest pain, unspecified
CPT/HCPCS: 36415; 71045; 71275; 80053; 84484; 85025; 85378; 93005; 96374; 96375; 99285; J2060; J2405; J3490

== ENCOUNTER 2024-10-30 10:44 | Outpatient (CLI) | payer OTHER, MEDICAID, SELFPAY ==
--- NOTE | 2024-10-30 10:46 | MM_ITS ---
WS: [id number] Bilateral screening 3D tomosynthesis digital mammogram, 10/30/2024 10:52 AM Clinical Data: SCREENING Comparison: 06/27/2023, 01/24/2014, 11/10/2011, 03/29/2007. Findings: No spiculated masses or clustered calcifications are seen. There are no secondary signs of carcinoma. MM/MM scr BI tomosynthesis [id number] Impression: Negative bilateral mammogram unchanged. Recommend annual screening mammograms. BIRADS: 1 - Negative. FOLLOW UP: 1 Year Follow-up DENSITY: There are scattered areas of fibroglandular density. The CAD shipping checker was used
--- NOTE | 2024-10-30 10:56 | XR_ITS ---
WS: [email or web address] Left hip, 2 views, AP pelvis, 10/30/2024 Clinical Data: PAIN IN LEFT HIP Comparison: None. Findings: No fractures or dislocations are seen. The left hip shows no erosion, sclerosis, narrowing, cyst formation or fragmentation of the left femoral head. There is calcification of the left greater trochanter possibly from old trauma. The right hip is normal. The soft tissues are not remarkable. The adjacent pelvis is normal. 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 XR/XR hip LT 2-3V wo/w pel* [id number] Impression: Negative left hip and pelvis.
== END 2024-10-30 10:45 | disposition home or self-care (01) ==
PROVIDERS: PCP Nurse Practitioner Family; Visit Provider Nurse Practitioner Family
DX: Z12.31 Encounter for screening mammogram for malignant neoplasm of breast (principal); M25.552 Pain in left hip; R92.323 Mammographic fibroglandular density, bilateral breasts; R93.7 Abnormal findings on diagnostic imaging of other parts of musculoskeletal system; M47.896 Other spondylosis, lumbar region
CPT/HCPCS: 73502; 77063; 77067

== ENCOUNTER 2025-03-31 09:22 | Emergency (ER) | payer OTHER, MEDICAID, SELFPAY ==
[2025-03-31] VITALS (8 sets, daily range): BP systolic 134–167; BP diastolic 83–106; PULSE 74–102; RESP 16–18; TEMP 36.7; O2SAT 93–100; BMI 27.3
--- NOTE | 2025-03-31 09:29 | XR_ITS ---
WS: [email or web address] Exam: XR chest 1V portable [id number] Date/Time of Exam: 03/31/2025 9:29 AM Reason For Exam: chest pain Comparison 10/19/2024. The lungs are fully inflated and clear. Normal cardiomediastinal silhouette. No pleural effusions. Spondylosis and degenerative change of the T-spine. XR/XR chest 1V portable [id number] IMPRESSION: 1. No acute cardiopulmonary finding.
--- OUTSIDE RECORDS SUMMARY | 2025-03-31 09:33 | XMS_ITS | Patient Health Record ---
Author Organization [facility] Address [address] [place], [place] [id number] Care Team Providers Care Tinner Helper Name Role Phone Ling Mackenzie Primary Care Provider Unavail able Bakari PACE, Aman Unavailable [phone] Mauro Rivero MD Unavailable Unavailable Kaleb JIMENEZ, [place] Unavailable [phone] Allergies Allergen (clinical drug ingredient) Drug/Non Drug Allergy documented on EMR Reaction Allergy Type Onset Date Status cow milk and goat milk (uncoded) Unknown Allergy Active deodorant, perfume (uncoded) Unknown Allergy Active food allergies - peanuts, pineapple, soy, kiwi (uncoded) Unknown Allergy Active Gluten gluten (uncoded) Unknown Allergy Act emy morphine morphine nausea Drug Allergy Active duloxetine Cymbalta stomach ache, elevated BP, confusion Drug Allergy Active Results Component Value Reference Range Notes Urine tox screen / MS if ind icated Reviewed date:07/25/2024 11:13:24 AM Interpretation:Consistent Performing Lab: Notes/Report: Consistent Urine tox screen / MS if ind icated Reviewed date:04/04/2024 10:45:37 AM Interpretation:Consistent Performing Lab: Notes/Report: Consistent Reason For Referral No Information Medications Medication SIG (Take, Route, Frequency, Duration) Notes Start Date End Date Status busPIRone 5 mg 1 tab orally 3 times a day Active ondansetron 4 mg 1 tab orally every 8 hours Active CBD Oil Hemp extract Active albuterol 2.5 mg/3 mL (0.083%) 3 mL by nebulizer every 6 hours Active Natura-Lax - as directed orally o nce a day for 7 day(s) Active amitriptyline 50 mg 1 tab orally once a day (at bedtime) Active omeprazole 20 mg 1 cap orally once a day Active chlorhexidine topical 2.5 mg 1 ea _inserted into periodontal pocket every 3 months Active Decadron Active estradiol topical 2 mg 1 ea intravaginal ly every 3 months for 90 day(s) Active acetaminophen-hydrocod one 325 mg-5 mg 1-2 tabs orally Q4-6H prn pain (max 6/day; hold within 4H of planned sleep) for 28 days Do not fill prior to 02/10/25. ICD-10: G89.29 01/09/2025 Active metoprolol 50 mg 1 tab(s) orally once a day Active acetaminophen-hydrocod one 325 mg-5 mg 1-2 tabs orally Q4-6H prn pain (max 6/day; hold within 4H of planned sleep) for 28 days Do not fill prior to 03/10/25. ICD-10: G89.29 01/09/2025 Active Narcan 4 mg/0.1 mL as directed intranasally once 12/12/2019 Active Hair, skin and Nails Multiple Vitamins with Minerals 1 tab orally once a day Acti ve acetaminophen-hydrocod one 325 mg-5 mg 1-2 tabs orally Q4-6H prn pain (max 6/day; hold within 4H of planned sleep) for 28 days Do not fill prior to 01/13/25. ICD-10: G89.29 01/09/2025 Active ibuprofen 800 mg 1 tab(s) orally 4-6 hours prn Active Social History Tobacco Use: Social History Observation Description Date Details (start date - stop date) Former Smoker NA - NA Tobacco use: Question Answer Notes : former smoker When did you stop smoking? 1998 AUDIT-C (Standard) Question Answer Notes Did you have a drink containing alcohol in the p ast year? No Points 0 Interpretation Negative Problems Problem Type SNOMED Code ICD Code Onset Dates Problem Status W/U Status Risk Notes Problem Solitary sacroiliitis (994236554) Sacroiliitis, not elsewhere classified (M46.1) Active confirmed Problem Low back pain (249238747) Low back pain (M54.5) Active confirmed Problem Lumbosacral spondylosis without myelopathy (08884465) Spondylosis without myelopathy or radiculopathy, lumbar region (M47.816) Active confirmed Problem High risk drug monitoring status (783349419) prison (current) use of opiate analgesic (Z79.891) Active confirmed Problem Anxiety disorder (751708988) Other specified anxiety disorders (F41.8) Active confirmed Problem Hypersomnia (47065957) Hypersomnia, unspecified (G47.10) Active confirmed Problem Sleep disorder (20915248) Other sleep disorders (G47.8) Active confirmed Problem Chronic pain (89688560) Other chronic pain (G89.29) Active confirmed Problem Essential hypertension (90153775) Essential (primary) hypertension (I10) Active confirmed Problem Acquired spondylolisthesis (113575818) Spondylolisthesis , lumbar region (M43.16) Active confirmed Problem Cervical spondylosis without myelopathy (167252813) Spondylosis without myelopathy or radiculopathy, cervical region (M47.812) Active confirmed Problem Spinal stenosis in cervical region (31419590) Spinal stenosis, cervical region (M48.02) Active confirmed Problem Radiculopathy due to lumbar intervertebral disc disorder (836356371112502) Intervertebral disc disorders with radiculopathy, lumbar region (M51.16) Active confirmed Problem Cervicalgia (52036453) Cervicalgia (M54.2) Active confirmed Problem Long-term current use of drug therapy (994902498) 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 terminal operations manager (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) drug therapy (Z79.899) Active confirmed Problem Spinal stenosis of lumbar region (52582187) Spinal stenosis, lumbar region without neurogenic claudication (M48.061) Active confirmed Problem Pain in lumbar spine (321791699) Vertebrogenic low back pain (M54.51) Active confirmed Vital Signs Temperature 97.1 degrees Fahrenheit 01/09/2025 Blood pressure diastolic 98 mm Hg 01/09/2025 Oximetry 97 % 01/09/2025 Height 69 in 01/09/2025 Blood pressure systolic 165 mm Hg 01/09/2025 Weight 197.2 lbs 01/09/2025 BMI 29.12 kg/m2 01/09/2025 Encounters Encounter Location Date Provider Diagnosis [facility] [address] [place], [place] [id number] 04/04/2024 America Manuel Spondylosis without myelopathy or radiculopathy, lumbar region M47.816 ; Other specified anxiety disorders F41.8 ; Other chronic pain G89.29 ; Vertebrogenic low back pain M54.51 ; Other sleep disorders G47.8 and prison (current) use of opiate analgesic Z79.891 [facility] [address] [place] [id number] 04/08/2024 Aman Villegas Spondylosis without myelopathy or radiculopathy, lumbar region M47.816 and Other specified anxiety disorders F41.8 [facility] [address] [place] [id number] 04/29/2024 Aman Villegas Spondylosis without myelopathy or radiculopathy, lumbar region M47.816 and Other specified anxiety disorders F41.8 [facility] [address] [place] [id number] 05/06/2024 Aman Villegas Spondylosis without myelopathy or radiculopathy, lumbar region M47.816 and Other specified anxiety disorders F41.8 [facility] [address] [place], [place] [id number] 05/23/2024 America Manuel Spondylosis without myelopathy or radiculopathy, lumbar region M47.816 ; Other chronic pain G89.29 ; Vertebrogenic low back pain M54.51 and Other sleep disorders G47.8 [facility] [address] [place], [place] [id number] 07/25/2024 Aman Villegas Other chronic pain G89.29 ; Vertebrogenic low back pain M54.51 ; Spondylosis without myelopathy or radiculopathy, lumbar region M47.816 ; Other sleep disorders G47.8 and prison (current) use of opiate analgesic Z79.891 [facility] [address] [place], [place] [id number] 09/04/2024 Aman Villegas Other chronic pain G89.29 ; Vertebrogenic low back pain M54.51 ; Spondylosis without myelopathy or radiculopathy, lumbar region M47.816 and Other sleep disorders G47.8 [facility] [address] [place], [place] [id number] 11/19/2024 Aman Villegas Other chronic pain G89.29 ; Vertebrogenic low back pain M54.51 ; Spondylosis without myelopathy or radiculopathy, lumbar region M47.816 ; Other sleep disorders G47.8 and prison (current) use of opiate analgesic Z79.891 [facility] [address] [place], [place] [id number] 01/09/2025 Aman Villegas Other chronic pain G89.29 ; Vertebrogenic low back pain M54.51 ; Essential (primary) hypertension I10 and Other sleep disorders G47.8 [facility] [address] [place], [place] [id number] 04/09/2024 Aman Villegas Spondylosis without myelopathy or radiculopathy, lumbar region M47.816 and Other specified anxiety disorders F41.8 [facility] [address] [place], [place] [id number] 04/30/2024 Aman Villegas Spondylosis without myelopathy or radiculopathy, lumbar region M47.816 and Other specified anxiety disorders F41.8 Assessments Encounter Date Diagnosis (ICD Code) Assessment Notes Treatment Notes Treatment Clinical Notes Section Notes 07/25/2024 Other chronic pain (ICD-10 - G89.29) Patient reports that taking her pain medication allows her to be more active and maintain her job / paycheck / health insurance. Plan to continue oral opioid medication management. 07/25/2024 Vertebrogenic low back pain (ICD-10 - M54.51) Chronic axial lumbosacral spine pain. Consider additional interventional treatment when needed. Patient stated she currently does not need more interventions. 11/19/2024 Other chronic pain (ICD-10 - G89.29) Patient reports that taking her pain medication allows her to continue working. Plan to continue oral opioid medication management. 05/23/2024 Spondylosis without myelopathy or radiculopathy, lumbar region (ICD-10 - M47.816) Prior left lower lumbar RFA on 08/07/23 with history of efficacy appreciated by patient for left lower lumbar axial pain and LLE pain. More recent left L4 medial branch, left L5 dorsal ramus RFA on 05/06/24 with great efficacy appreciated by patient to include left low lumbar and LLE pain resolution. 05/23/2024 Other chronic pain (ICD-10 - G89.29) Patient reports that taking her pain medication allows her to do yard work and to continue working. Plan to continue oral opioid medication management. 04/29/2024 Spondylosis without myelopathy or radiculopathy, lumbar region (ICD-10 - M47.816) Plan lumbar diagnostic blocks: left L4 medial branch and left L5 dorsal ramus. 04/29/2024 Other specified anxiety disorders (ICD-10 - F41.8) Plan moderate IV sedation with midazolam and/or fentanyl. 04/08/2024 Spondylosis without myelopathy or radiculopathy, lumbar region (ICD-10 - M47.816) Plan lumbar diagnostic blocks: left L4 medial branch and left L5 dorsal ramus. 05/06/2024 Spondylosis without myelopathy or radiculopathy, lumbar region (ICD-10 - M47.816) Plan left lumbar RFA of L4 medial branch and L5 dorsal ramus 04/04/2024 Spondylosis without myelopathy or radiculopathy, lumbar region (ICD-10 - M47.816) Prior left lower lumbar RFA on 08/07/23 with history of efficacy appreciated by patient for left lower lumbar axial pain and LLE pain. The benefits from that RFA procedure appears to have now waned in regards to left low lumbar axial pain and the left hip and thigh pain has again emerged. Proceed with left L4 medial branch, left L5 dorsal ramus diagnostic blocks as previously planned. Consider repeat / confirmatory blocks and possible RFA, pending outcome of diagnostic blocks. Risks, benefits, and alternatives reviewed with patient at prior office visit. Questions answered to the patient's reported satisfaction. Preparation for procedure reviewed with patient at prior office visit; printed instructions declined. 04/04/2024 Other specified anxiety disorders (ICD-10 - F41.8) Plan moderate IV sedation as needed with midazolam and / or fentanyl. 01/09/2025 Other chronic pain (ICD-10 - G89.29) Patient reports that taking her pain medication allows her to do yard work. Plan to continue oral opioid medication. 04/30/2024 Spondylosis without myelopathy or radiculopathy, lumbar region (ICD-10 - M47.816) Initial and confirmatory left L4 medial branch, left L5 dorsal ramus diagnostic blocks completed with a 100% reductions in pain noted following each procedure. Plan RFA since diagnostic blocks appreciated. Risks, benefits, and alternatives reviewed with patient at prior office visit. Questions answered to the patient's reported satisfaction. Preparation for procedure reviewed with patient by phone. 04/30/2024 Other specified anxiety disorders (ICD-10 - F41.8) Plan monitored anesthesia care. 04/09/2024 Spondylosis without myelopathy or radiculopathy, lumbar region (ICD-10 - M47.816) Left L4 medial branch, left L5 dorsal ramus diagnostic blocks completed with a 100% reduction in pain noted. Plan repeat / confirmatory blocks and possible RFA, pending outcome of diagnostic blocks. Risks, benefits, and alternatives reviewed with patient at prior office visit. Questions answered to the patient's reported satisfaction. Preparation for procedure reviewed with patient by phone. 04/09/2024 Other specified anxiety disorders (ICD-10 - F41.8) Plan moderate IV sedation as needed with midazolam and / or fentanyl. 09/04/2024 Other chronic pain (ICD-10 - G89.29) Patient reports that taking her pain medication allows her to prepare for the holiday season. Plan to continue oral opioid medication management. 09/04/2024 Vertebrogenic low back pain (ICD-10 - M54.51) Chronic axial lumbosacral spine pain. 01/09/2025 Essential (primary) hypertension (ICD-10 - I10) Education sheet given at today's visit; patient to address with PCP. 01/09/2025 Vertebrogenic low back pain (ICD-10 - M54.51) Chronic axial lumbosacral spine pain. 09/04/2024 Spondylosis without myelopathy or radiculopathy, lumbar region (ICD-10 - M47.816) Prior left lower lumbar RFA on 08/07/23 with history of efficacy appreciated by patient for left lower lumbar axial pain and LLE pain. More recent left L4 medial branch, left L5 dorsal ramus RFA on 05/06/24 with great efficacy appreciated by patient to include left low lumbar and LLE pain resolution. The benefits may have started to wane a little, but efficacy is still appreciated by patient. 04/04/2024 Other chronic pain (ICD-10 - G89.29) Patient reports that taking her pain medication allows her to work in her yard. Plan to continue oral opioid medication management. 05/06/2024 Other specified anxiety disorders (ICD-10 - F41.8) Plan monitored anesthesia care 04/08/2024 Other specified anxiety disorders (ICD-10 - F41.8) Plan moderate IV sedation with midazolam and/or fentanyl. 05/23/2024 Vertebrogenic low back pain (ICD-10 - M54.51) Chronic axial lumbosacral spine pain. Consider sacral interventional treatment or right low lumbar interventional treatment as needed / desired by patient. 11/19/2024 Vertebrogenic low back pain (ICD-10 - M54.51) Chronic axial lumbosacral spine pain. 07/25/2024 Spondylosis without myelopathy or radiculopathy, lumbar region (ICD-10 - M47.816) Prior left lower lumbar RFA on 08/07/23 with history of efficacy appreciated by patient for left lower lumbar axial pain and LLE pain. More recent left L4 medial branch, left L5 dorsal ramus RFA on 05/06/24 with great efficacy appreciated by patient to include left low lumbar and LLE pain resolution. The benefits may have started to wane, but efficacy is still appreciated by patient. 11/19/2024 Spondylosis without myelopathy or radiculopathy, lumbar region (ICD-10 - M47.816) Prior left lower lumbar RFA on 08/07/23 with history of efficacy appreciated by patient for left lower lumbar axial pain and LLE pain. More recent left L4 medial branch, left L5 dorsal ramus RFA on 05/06/24 with great efficacy appreciated by patient to include left low lumbar and LLE pain resolution. The benefits may have started to wane a little (left hip and thigh pain return), but efficacy is still appreciated by patient for the left low lumbar pain. 07/25/2024 Other sleep disorders (ICD-10 - G47.8) Plan to continue to restrict opioid use in relation to sleep for safety concerns. 05/23/2024 Other sleep disorders (ICD-10 - G47.8) Plan to continue to restrict opioid use in relation to sleep for safety concerns. 04/04/2024 Vertebrogenic low back pain (ICD-10 - M54.51) Chronic axial lumbosacral spine pain. Consider sacral interventional treatment pending outcome of planned lumbar interventional treatment. 09/04/2024 Other sleep disorders (ICD-10 - G47.8) Plan to continue to restrict opioid use in relation to sleep for safety concerns. 01/09/2025 Other sleep disorders (ICD-10 - G47.8) Plan to continue to restrict opioid use in relation to sleep for safety concerns. 11/19/2024 Other sleep disorders (ICD-10 - G47.8) Plan to continue to restrict opioid use in relation to sleep for safety concerns. 04/04/2024 Other sleep disorders (ICD-10 - G47.8) Patient with history of a sleep disorder. Plan to continue to restrict opioid use in relation to sleep for safety concerns. 07/25/2024 prison (current) use of opiate analgesic (ICD-10 - Z79.891) 2022 opioid (OUD) risk tool score = 5. This places the patient in the high risk category, warranting more frequent screening. Plan urine toxicology screen today to monitor for presence of any unprescribed or illicit controlled substance(s), as well as prescribed hydocodone. 11/19/2024 prison (current) use of opiate analgesic (ICD-10 - Z79.891) 2022 opioid (OUD) risk tool score = 5. This places the patient in the high risk category, warranting more frequent screening. Plan urine toxicology screen today to monitor for presence of any unprescribed or illicit controlled substance(s), as well as prescribed hydrocodone; cancelled due to sickness (evaluated curbside). 04/04/2024 intermediate designer (current) use of opiate analgesic (ICD-10 - Z79.891) 2022 opioid (OUD) risk tool score = 5. This places the patient in the high risk category, warranting more frequent screening. Plan 2 month visit pending continued compliance with patient's Treatment Agreement. Plan urine toxicology screen today to monitor for presence of any unprescribed or illicit controlled substance(s), as well as prescribed hydrocodone. 09/04/2024 Other The service was provided by BARBARA Burgess, as part of the ongoing care plan established by Aman Villegas MD, who was present in the office for direct supervision during the encounter. 01/09/2025 Other The service was provided by BARBARA Burgess, as part of the ongoing care plan established by Aman Villegas MD, who was present in the office for direct supervision during the encounter. Patient was provided with a letter at today's visit informing patient that this clinic is closing due to Dr. Villegas's detention; see scanned document. Terminal prescriptions were given to the patient along with tapering instructions. 11/19/2024 Other The service was provided by BARBARA Burgess, as part of the ongoing care plan established by Aman Villegas MD, who was present in the office for direct supervision during the encounter. 04/04/2024 Other 04/30/2024 Other 04/09/2024 Other 07/25/2024 Other 05/23/2024 Other 05/06/2024 Other Plan Of Treatment No Information Insurance Providers Payer Name Payer Address Payer Phone Subscriber Number Group Number Insured Name Patient Relationship to Insured Coverage Start Date Coverage End Date [employer] [address] [place] [address] [id number] Johnna Strange Self - patient is the insured [place] [employer] [address] [place] [address] [phone] [id number] Johnna Strange Self - patient is the insured Medical (General) History Medical History History ICD Code Chronic pain Low back pain Lumbar spondylosis, disc disease, spinal stenosis and spondylolisthesis Sacroiliitis Neck pain Cervical sponylosis and spinal stenosis Headaches Fibromyalgia Osteoarthritis Hypertension Peptic ulcer disease Anxiety and depression Raynaud's phenomenon Cataracts Sleep disorder, history of REM sleep rel ated disordered breathing episodes Obesity, mild Surgical History Surgery Date(Month/Year) section, 09/27/89 Laparoscopy, 1996, 1997 Hysterectomy, 1997 9 dental extractions (in pre paration for dentures), performed by [facility] in [place], [place], 04/17/23 Hospitalization History Reason Date(Month/Year) , 1979
--- NOTE | 2025-03-31 09:34 | ECG_ITS ---
[facility] Test Date: 2025-03-31 Pat Name: Johnna Strange Department: Room: Gender: Female Endodontics Dentist: : 1960 Requested By: Jayesh Maurer Order Number: [id number] Josephine MD: Adalberto Barahona M.D. Measurements Intervals Thornton Rate: 69 P: 32 KS: 177 QRS: -40 QRSD: 106 T: 51 QT: 421 QTc: 453 Interpretive Statements SINUS RHYTHM LEFT AXIS DEVIATION [QRS AXIS < -30] LOW QRS VOLTAGE IN PRECORDIAL LEADS [QRS DEFLECTION < 1.0 mV IN CHEST LEADS] LEFT VENTRICULAR HYPERTROPHY AND ST-T CHANGE [VOLTAGE CRITERIA PLUS ST/T ABNORMALITY] POSSIBLE ANTERIOR MYOCARDIAL INFARCTION , OF INDETERMINATE AGE [30 ms Q WAVE IN V3/V4, OR R < 0.2 mV IN V4] Compared to ECG 10/19/2024 11:52:46 Left-axis deviation now present Left ventricular hypertrophy now present ST (T wave) deviation now present Myocardial infarct finding still present Electronically Signed On 04-01-2025 08:22:21 CDT by Adalberto Barahona M.D. [email or web address]
[2025-03-31 10:33] LABS: Troponin(5th) Baseline 32 ng/L (0-10)
--- NOTE | 2025-03-31 10:50 | W.ED.ARRPALP ---
HPI - Arrhythmia/Palpitations General: Chief Complaint: Arrhythmia/Palpitations Stated Complaint: CP, high bp, increased hr, STEMI 03/27 at [place] Time Seen by Provider: 03/31/25 09:55 History of Present Illness: 64-year-old female presents emergency room complaining of chest discomfort. Patient reports that she was admitted over the weekend at [facility] and was stented. She was discharged yesterday she did not take her Plavix yet today as her prescription not yet been filled. 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 She tells me she had a single stent placed 2 days ago. She is not currently having any chest pain. Related Data Home Medications ?Medication ?Instructions ?Recorded ?Confirmed amitriptyline 150 mg tablet 150 mg PO BEDTIME 12/28/23 01/08/25 buspirone 5 mg tablet 5 mg PO TID 12/28/23 01/08/25 fluticasone propionate 50 1 spray intranasal DAILY PRN 12/28/23 01/08/25 mcg/actuation nasal allergies spray,suspension (Allergy Relief (fluticasone)) hydrochlorothiazide 50 mg tablet 50 mg PO DAILY 12/28/23 01/08/25 hydrocodone 5 mg-acetaminophen 325 1 - 2 tab PO .Q4-6H PRN pain 10/19/24 01/08/25 mg tablet omeprazole 20 mg tablet,delayed 20 mg PO DAILY 10/19/24 01/08/25 release potassium chloride 10 mEq 10 meq PO DAILY 10/19/24 01/08/25 tablet,extended release Previous Rx's ?Medication ?Instructions ?Recorded albuterol sulfate 90 mcg/actuation 1 - 2 puff inhalation Q6H PRN 02/27/23 aerosol inhaler (Ventolin HFA) shortness of breath or wheezing #8.5 grams ondansetron 4 mg disintegrating 4 mg PO Q6H PRN nausea and 10/19/24 tablet vomiting #14 tabs estradiol 10 mcg vaginal tablet 10 mcg vaginal DIRECTED #30 tabs 01/08/25 (Vagifem) Allergies Allergy/AdvReac Type Severity Reaction Status Date / Time duloxetine (From Cymbalta) Allergy Unknown Verified 01/08/25 11:25 morphine Allergy ADR-Nausea Verified 01/08/25 11:25 estradiol vaginal cream Allergy ADR-Itching Uncoded 01/08/25 11:25 Review of Systems Const: Denies: fever(s) or chills Card: Denies: chest pain Resp: Denies: dyspnea GI: Denies: abdominal pain : Denies: dysuria, urinary frequency or urinary urgency Musc: Denies: neck pain or back pain Skin/Breast: Denies: rash PFSH ED PFSH: Medical History History of coronary artery disease Acute pharyngitis Surgical History History of coronary angioplasty with insertion of stent March 2025 [facility] Hx of colonoscopy History of esophagogastroduodenoscopy (EGD) Hx of section Hx of laparoscopy Hx of hysterectomy Family History Mother Hypertension Diabetes Brother Hypertension Sister Hypertension Denies family history of Colon cancer Ovarian cancer Prostate cancer Heart disease Hypercholesteremia Breast cancer Uterine cancer Thyroid disease Stroke Social History Smoking and tobacco/nicotine status: former use of tobacco/nicotine Physical Exam Const: GENERAL APPEARANCE: cooperative ORIENTATION/CONSCIOUSNESS: Yes awake, Yes oriented to person, Yes oriented to place and Yes oriented to time HENMT: COMMON NORMALS: normocephalic, atraumatic and hearing grossly normal bilaterally HEAD & SCALP: normocephalic and atraumatic Resp: COMMON NORMALS: normal respiratory effort, No retractions, No use of accessory muscles and clear to auscultation bilaterally AUSCULTATION: clear to auscultation bilaterally Cardio: COMMON NORMALS: regular rate, regular rhythm and No murmurs present (Cardio) RATE: regular rate RHYTHM: regular rhythm GI: COMMON NORMALS: Soft to palpation and No hepatosplenomegaly present AUSCULTATION: Yes normoactive bowel sounds PALPATION: Yes Soft to palpation, No Tenderness to palpation present (GI), No Guarding due to palpation present (GI) and Yes No hepatosplenomegaly present Extremity: COMMON NORMALS: normal to inspection, capillary refill normal, no clubbing, cyanosis or edema, no calf tenderness and no pedal edema Neuro: SENSORIUM/ORIENTATION: Yes oriented to person, Yes oriented to place and Yes oriented to time Skin: COMMON NORMALS: no rashes or lesions noted GENERAL SKIN EXAM: no rashes or lesions noted Course Vital Signs: Vital signs: Vital Signs Temperature 98.1 F 03/31/25 09:45 Pulse Rate 102 H 03/31/25 13:12 Respiratory Rate 16 03/31/25 13:12 Blood Pressure 167/99 03/31/25 13:12 Pulse Oximetry 98 03/31/25 13:12 Oxygen Delivery Me thod Room Air 03/31/25 10:38 MDM - Arrhythmia/Palpitations Medical Decision Making EKG does not show any acute changes troponin is trended negative. The records from [place]. The patient had 2 stenotic areas both which were stented no other areas of stenosis she is been taking her antiplatelet therapy regularly. Think we can discharge patient home at this time follow-up with her baler. Medical Records Medical records from [facility] Lab Data 03/31/25 10:04 03/31/25 10:04 Radiology Impressions Chest X-Ray 03/31/25 09:29 IMPRESSION: 1. No acute cardiopulmonary finding. Laboratory Results WBC 5.63 10^3/uL (3.29-11.43) 03/31/25 10:04 RBC 4.26 10^6/uL (3.85-5.65) 03/31/25 10:04 Hgb 12.30 g/dL (11.27-16.99) 03/31/25 10:04 Hct 38.1 % (36-47) 03/31/25 10:04 MCV 89.4 fl (85-98) 03/31/25 10:04 MCH 28.9 pg (27-33) 03/31/25 10:04 MCHC 32.3 g/dL (30-55) 03/31/25 10:04 RDW 13.2 % (12.1-15.1) 03/31/25 10:04 Plt Count 254 10^3/cmm (157-399) 03/31/25 10:04 MPV 9.8 fL (7.4-10.4) 03/31/25 10:04 Neut % (Auto) 64.6 % 03/31/25 10:04 Lymph % (Auto) 25.2 % 03/31/25 10:04 [place] % (Auto) 6.7 % 03/31/25 10:04 Eos % (Auto) 2.8 % 03/31/25 10:04 Baso % (Auto) 0.5 % 03/31/25 10:04 Neut # (Auto) 3.63 10^3/uL (1.8-7.7) 03/31/25 10:04 Lymph # (Auto) 1.4 10^3/uL (0.8-4.8) 03/31/25 10:04 [place] # (Auto) 0.4 10^3/uL (0.2-0.9) 03/31/25 10:04 Eos # (Auto) 0.2 10^3/uL (0.0-0.8) 03/31/25 10:04 Baso # (Auto) 0.0 10^3/uL (0.0-0.1) 03/31/25 10:04 Nucleated RBC % (auto) 0 % 03/31/25 10:04 Nucleated RBCs # 0.0 /100WBC 03/31/25 10:04 Sodium 141 mmol/L (136-145) 03/31/25 10:04 Potassium 3.4 mmol/L (3.5-5.1) L 03/31/25 10:04 Chloride 101 mmol/L (98-107) 03/31/25 10:04 Carbon Dioxide 27 mmol/L (22-29) 03/31/25 10:04 Anion Gap 16.4 (5-19) 03/31/25 10:04 BUN 6 mg/dL (8-23) L 03/31/25 10:04 Creatinine 0.8 mg/dL (0.5-0.9) 03/31/25 10:04 GFR Calculation 72.2 mL/min (90-130) L 03/31/25 10:04 Glucose 83 mg/dL (65-115) 03/31/25 10:04 Calculated Osmolality 289 mOsm/kg (285-295) 03/31/25 10:04 Calcium 9.5 mg/dL (8.5-10.5) 03/31/25 10:04 Total Bilirubin 0.7 mg/dL (0.15-1.2) 03/31/25 10:04 AST 22 U/L (0-32) 03/31/25 10:04 ALT 14 U/L (0-33) 03/31/25 10:04 Alkaline Phosphatase 85 U/L (35-105) 03/31/25 10:04 Troponin T Baseline 32 ng/L (0-10) H 03/31/25 10:04 Troponin T 120 Minute 31.12 ng/L (0-10) H 03/31/25 12:04 Delta Troponin T -0.88 ABS# (0-10) L 03/31/25 12:04 Total Protein 7.3 g/dL (6.6-8.7) 03/31/25 10:04 Albumin 4.6 g/dL (3.5-5.2) 03/31/25 10:04 Globulin 2.7 g/dL (1.3-4.6) 03/31/25 10:04 All radiology interpretation(s) finalized by discharge EKG Data EKG 1: Interpretation: EKG 03/31/2025 9:34 AM sinus rhythm with a rate of 69 NC interval 177 QTc 453. No acute EKG changes no ST elevation note Q waves in V3 and 4 not present on previous EKG. Other EKG comments: Chest X-Ray 03/31/25 09:29 IMPRESSION: 1. No acute cardiopulmonary finding. EKG 2: Interpretation: EKG 03/31/2025 1150 normal sinus rhythm left axis deviation rate of 74 QRS QTc of [address] elevation no other changes from initial EKG done earlier to same day. Other EKG comments: Chest X-Ray 03/31/25 09:29 IMPRESSION: 1. No acute cardiopulmonary finding. Discharge Plan Discharge Patient Disposition: Home Clinical Impression: Atypical chest pain Condition: Stable Prescriptions: No Action albuterol sulfate [Ventolin HFA] 90 mcg/actuation HFA aerosol inhaler 1 - 2 puff inhalation Q6H PRN (Reason: shortness of breath or wheezing) Qty: 8.5 0RF amitriptyline 150 mg tablet 150 mg PO BEDTIME buspirone 5 mg tablet 5 mg PO TID fluticasone propionate [Allergy Relief (fluticasone)] 50 mcg/actuation spray,suspension 1 spray intranasal DAILY PRN (Reason: allergies) Rx Instructions: administer into each nostril hydrochlorothiazide 50 mg tablet 50 mg PO DAILY estradiol [Vagifem] 10 mcg tablet 10 mcg vaginal DIRECTED Qty: 30 3RF Rx Instructions: insert one tab intravaginally once nightly for 14 days; then transition to twice weekly potassium chloride 10 mEq Tablet Extended Release 10 meq PO DAILY omeprazole 20 mg Tablet,Delayed Release (Dr/Ec) 20 mg PO DAILY hydrocodone-acetaminophen 5-325 mg tablet 1 - 2 tab PO .Q4-6H MDD 6 tab PRN (Reason: pain) ondansetron 4 mg tablet,disintegrating 4 mg PO Q6H PRN (Reason: nausea and vomiting) Qty: 14 0RF Discharge Orders: Discharge ED (Routine); Ordered 03/31/25 Ordered By: Jayesh Carpenter Referrals: Ling Lam NP [Primary Care Provider, Unknown] Discharge Diet: Usual diet Discharge Activity: Resume usual activity Patient Instructions: Opioid Safety, Pain Management, Patient Portal & [place] Instructions Activity Restrictions/Additional Instructions: Thank you for choosing [facility] for your healthcare needs today. It is very important that you follow up as instructed or that you return to the Emergency Department should you have concerns or if your condition changes or worsens in any way. You were seen in the emergency room with complaint of chest discomfort. Your cardiac enzymes and EKG did not show any acute changes. We did get a copy of your angiography and stenting that was done in [place] over the weekend the only 2 lesions that were noted on the angiography gram were stented there were no other areas of narrowing in your coronary arteries on that report. Recommend that you continue current medications it is especially important to take the Plavix daily. You were given today's dose while in the emergency room. Return if you have further symptoms. Print Language: Sami Coding Level of Care Code ED Director Of Instructional Technology for Liana Argueta
[2025-03-31 11:01] LABS: Hematocrit 38.1 % (36-47); Hemoglobin 12.30 g/dL (11.27-16.99); Mean Corpuscular HGB Conc 32.3 g/dL (30-55); Mean Corpuscular Hemoglobin 28.9 pg (27-33); Mean Corpuscular Volume 89.4 fl (85-98); Nucleated Red Blood Cells % 0 %; Platelet Count 254 10^3/cmm (157-399); Red Blood Count 4.26 10^6/uL (3.85-5.65); White Blood Count 5.63 10^3/uL (3.29-11.43)
[2025-03-31 11:07] LABS: Alanine Aminotransferase 14 U/L (0-33); Albumin Level 4.6 g/dL (3.5-5.2); Alkaline Phosphatase 85 U/L (35-105); Anion Gap 16.4 (5-19); Aspartate Amino Transferase 22 U/L (0-32); Blood Urea Nitrogen 6 mg/dL (8-23); Calcium 9.5 mg/dL (8.5-10.5); Carbon Dioxide 27 mmol/L (22-29); Chloride 101 mmol/L (98-107); Creatinine Clr Calc Pharmacy 82.1923; Globulin 2.7 g/dL (1.3-4.6); Glucose 83 mg/dL (65-115); Osmolality Calculated 289 mOsm/kg (285-295); Potassium 3.4 mmol/L (3.5-5.1); Sodium 141 mmol/L (136-145); Total Protein 7.3 g/dL (6.6-8.7)
--- NOTE | 2025-03-31 11:30 | ECG_ITS ---
AVIcode Test Date: 2025-03-31 Pat Name: Johnna Strange Department: Room: Gender: Female Residential [employer]per: : 1960 Requested By: Jayesh Maurer Order Number: [id number] Reading MD: Adalberto Barahona M.D. Measurements Intervals [place] Rate: 74 P: 38 [place]: 180 QRS: -35 QRSD: 97 T: -11 QT: 397 QTc: 441 Interpretive Statements SINUS RHYTHM LEFT AXIS DEVIATION [QRS AXIS < -30] LOW QRS VOLTAGE IN PRECORDIAL LEADS [QRS DEFLECTION < 1.0 mV IN CHEST LEADS] ANTEROSEPTAL MYOCARDIAL INFARCTION , OF INDETERMINATE AGE [40+ ms Q WAVE IN V1-V4] Compared to ECG 03/31/2025 09:34:56 Left ventricular hypertrophy no longer present ST (T wave) deviation no longer present Myocardial infarct finding still present Electronically Signed On 04-01-2025 08:37:53 CDT by Adalberto Barahona M.D. [email or web address]
[2025-03-31 12:34] LABS: Troponin 5 2HR 31.12 ng/L (0-10); Troponin 5 2HR Delta -0.88 ABS# (0-10)
== END 2025-03-31 13:13 | disposition home or self-care (01) ==
PROVIDERS: Emergency Provider Family Medicine; PCP Nurse Practitioner Family
DX: R07.89 Other chest pain (principal); Z87.891 Personal history of nicotine dependence
CPT/HCPCS: 36415; 71045; 80053; 84484; 85025; 93005; 99285; J9999

== ENCOUNTER 2025-06-23 18:07 | Emergency (ER) | payer OTHER, MEDICAID, SELFPAY ==
[2025-06-23 18:09] VITALS: BP 156/100; PULSE 69; RESP 17; TEMP 36.5; O2SAT 100; BMI 26.9
--- NOTE | 2025-06-23 18:20 | XRR_ITS ---
PROCEDURE INFORMATION: Exam: XR Abdomen Exam date and time: 06/23/2025 6:28 PM Age: 64 years old Clinical indication: Abdominal pain; Acute; Prior surgery; Surgery date: 6+ months; Surgery type: hyst; Additional info: Abd pain TECHNIQUE: Imaging protocol: Radiologic exam of the abdomen. Views: Frontal supine view of the abdomen. 1 View. COMPARISON: CT abdomen pelvis w con* [id number] 08/21/2023 7:31 PM FINDINGS: Gastrointestinal tract: Moderate amount of semi solid stool seen involving the rectum and distal sigmoid colon. Tjwlufij-sx-jivqg amount of stool seen in the area of the hepatic flexure and the descending colon. Correlate for symptoms of constipation. No significant small bowel distension. Psoas outlines intact. No organomegaly. Upper abdomen not fully included. Abdomen: Psoas outlines intact as are the properitoneal fat planes. No organomegaly. Bones/joints: Marked degenerative changes mid and lower lumbar spine. Prominent enthesophytes left greater trochanter. XR/XR abdomen 1V* [id number] IMPRESSION: Tytitpgr-dl-iadpt amount of solid stool seen in the hepatic flexure and descending colon. Correlate for symptoms of constipation. No obstruction.
--- OUTSIDE RECORDS SUMMARY | 2025-06-23 18:24 | XMS_ITS | Patient Health Record ---
Author Organization [facility] Address [address] [place] [address] Care Team Providers Care Blind Teacher Name Role Phone Genaro COMMERCIAL COLLECTORLing Bess Primary Care Provider Mini Meraz Unavailable Danae Mara Unavailable [phone] Allergies Allergen (clinical drug ingredient) Drug/Non Drug Allergy documented on EMR Reaction Allergy Type Onset Date Status duloxetine Cymbalta Unknown Drug Allergy Active Substance with estrogen receptor agonist mechanism of action (substance) Estrogens Unknown Drug Allergy Active morphine Morphine Unknown Drug Allergy Active Pollen (e.g. tree, grass) Unknown Allergy Active Results Component Value Reference Range Flag Notes Troponin-I 85855 Reviewed date:04/14/2025 04:04:18 PM Interpretation: Performing Lab: Notes/Report: 2nd trop plan admit 3510@1026 CLEAN 3510 Troponin-I 1668 2-34 pg/mL CRIT called to 3MARK Marquez RN. 03/28/2025 18:45:30 RBV/ Prothrombin Time 24772 Reviewed date:04/14/2025 04:04:08 PM Interpretation: Performing Lab: Notes/Report: 2nd trop plan admit 3510@1026 CLEAN 3510 ProTime 10.4 9.1-11.9 SEC Normal Range : 9.1-11.9 INR .98 .90-1.20 Therapeutic Range: 2.0-3.0 Therapaeutic Range for heart valve replacement: 2.5-3.50 Basic Metabolic Panel (BMP) 98371 Reviewed date:04/14/2025 04:04:08 PM Interpretation: Performing Lab: Notes/Report: 2nd trop plan admit 3510@1026 CLEAN 3510 Sodium 144 136-145 MMOL/L Potassium 3.2 3.5-5.1 MMOL/L LOW Chloride 108 98-107 MMOL/L HI CO2 28.5 20.0-31.0 MMOL/L Glucose Serum 112 71-110 MG/DL HI Testing p erformed at [facility], [address] [place] [address] Dr. Wendy Luna, JOIE [address]. CLIA ID#: [id number] BUN 8 7-21 MG/DL Creat .80 .51-1.17 MG/DL H-eipmvf-w-benzoquinon e imine (NAPQI) is a metabolite of acetaminophen, NAPQI concentrations of apparoximately 10 mg/L correlation to toxic levels of acetaminophen demonstrates a greater than or equil to 10% change in results. NAPQI concentrations greater than this may lead to falsely depressed results for patient samples. Use of this assay is not recommended for patients undergoing treatment with phenindione, due to the potential for falsely depressed results. GFR 82.3 NA Calculation pe rformed from GFR calculator provided by the [employer]. Glomerular Filtration rate(GRF) is the best overall index of kidney function. Normal GFR varies according to age,sex, body size, and declines with age. The National Kidney Foundation recommends using the CKD-EPI Creatinine Equation(2020) to estimate GFR. Anion Gap 11 5-15 BUN/Creat Ratio 10.0 12.0-20.0 % LOW Calcium 9.0 8.7-10.4 MG/DL Osmo Serum,Calculated 297 280-300 MOSM/KG Partial Thromboplastin Time 04462 Reviewed date:04/14/2025 04:04:08 PM Interpretation: Performing Lab: Notes/Report: 2nd trop plan admit 3510@1026 CLEAN 3510 PTT 28.5 22.6-31.8 SEC Therapeutic Range: 60-100. Critical Value Starting at > 100. CBC [place] Diff [address], 8 5007 Reviewed date:04/14/2025 04:04:08 PM Interpretation: Performing Lab: Notes/Report: 2nd trop plan admit 3510@1026 CLEAN 3510 WBC 5.3 4.5-11.0 X10'3 RBC 3.94 4.00-5.20 X10'6 LOW Hgb 11.4 12.0-16.0 G/DL LOW Hct 34.5 36.0-46.0 % LOW MCV 87.6 80.0-100.0 FL MCH 28.9 27.0-31.0 PG MCHC 33.0 31.0-37.0 G/DL Platelet 213 150-400 X10'3 RDW-SD 43.3 35.0-49.0 FL RDW-CV 13.2 12.2-15.6 % MPV 9.4 9.2-12.0 FL Review Auto Diff Conf WBC Auto Diff--57546 Reviewed date:04/14/2025 04:04:08 PM Interpretation: Performing Lab: Notes/Report: Added by Discern Rules 2nd trop plan admit 3510@1026 CLEAN 3510 Neutro Auto% 56.3 40.0-70.0 % Lymph Auto% 33.9 22.0-44.0 % [place] Auto% 7.3 3.0-7.0 % HI Eos Auto% 1.7 2.0-4.0 % LOW Baso Auto% 0.6 0.0-1.0 % NRBC% .00 .00-.20 /100 intact WBC's Neutro Abs 2.99 .80-7.70 Absolute Neutrophil Count 2990 NA Lymph Abs 1.80 .10-4.10 [place] Abs .39 .20-1.00 Eos Abs .09 .00-.40 Baso Abs .03 .00-.20 NRBC# .00 .00-.20 X10'3 Imm Gran Abs .01 .00-.10 Imm Gran% .2 .0-.4 % Echo Complete [id number] Reviewed date:04/14/2025 04:04:08 PM Interpretation: Performing Lab: Notes/Report: Cardiopulmonary Services Name: PRABHU RIVERA Study Date: 03/29/2025 : 1960 Patient Location: [facility] Age: 64 yrs Gender: Female Height: 69 in Weight: 188 lb BSA: 2.0 m2 Reason For Study: non stemi Interpretation Summary There are regional wall motion abnormalities as specified. There is mild mitral regurgitation. There is trace tricuspid regurgitation. Left ventricular systolic function is mildly reduced. Left Ventricular Function is estimated to be 45-50%. Left Ventricle The left ventricle is normal in size. There is normal left ventricular wall thickness. Left ventricular systolic function is mildly reduced. Left Ventricular Function is estimated to be 45-50%. There is akinesis of the mid inferoseptal wall. There is hypokenisis of the inferior wall. There are regional wall motion abnormalities as specified. Right Ventricle The right ventricle is normal size. Atria The left atrial size is normal. Right atrial size is normal. Great Vessels The aortic root is normal size. Pericardium/Pleural There is no pericardial effusion. There is no pleural effusion. Mitral Valve There is mild mitral regurgitation. Aortic Valve The aortic valve opens well. No aortic regurgitation is present. Tricuspid Valve There is trace tricuspid regurgitation. Pulmonic Valve There is no pulmonic valvular regurgitation. MMode/2D Measurements & Calculations RVDd: 3.8 cm LVIDd: 5.1 cm FS: 28.7 % IVSd: 0.73 cm LVIDs: 3.7 cm EDV(Teich): 125.9 ml LVPWd: 0.71 cm ESV(Teich): 56.7 ml EF(Teich): 54.9 % Ao root diam: 3.1 cm RVIDd/LVIDd_phl: 0.74 Ao root area: 7.5 cm2 ACS: 2.0 cm LA dimension: 3.1 cm Doppler Measurements & Calculations MV E max freddy: 91.7 cm/sec MV V2 max: 100.5 cm/sec MV dec time: 0.21 sec MV A max freddy: 80.2 cm/sec MV max P.0 mmHg MV E/A: 1.1 MV V2 mean: 73.7 cm/sec Lat Peak E E/E Lateral E/e Med Peak E Ao V2 max: 136.0 cm/sec LV V1 max P.9 mmHg PA V2 max: 87.3 cm/sec Ao max P.4 mmHg LV V1 mean P.1 mmHg PA max P.0 mmHg Ao V2 mean: 93.7 cm/sec LV V1 max: 98.5 cm/sec Ao mean P.8 mmHg LV V1 mean: 69.5 cm/sec Ao V2 VTI: 30.4 cm LV V1 VTI: 24.2 cm AV VR_phl: 0.72 E/E Ordering Physician: Salazar Wilson Referring Physician: Mohinder Mays Performed By: Sam Parker RCS zzzHeart Cath Lt poss PTCA Reviewed date:04/14/2025 04:04:08 PM Interpretation: Performing Lab: Notes/Report: [id number] Schedule Confirmation Reviewed date:04/14/2025 04:04:08 PM Interpretation: Performing Lab: Notes/Report: Heart Cath Lt poss PTCA Schedule Confirmation Reviewed date:04/14/2025 04:04:08 PM Interpretation: Performing Lab: Notes/Report: Heart Cath Lt poss PTCA Echo Complete [id number] Reviewed date:04/14/2025 04:04:18 PM Interpretation: Performing Lab: Notes/Report: [id number] zzzHeart Cath Lt poss PTCA Reviewed date:04/14/2025 04:04:08 PM Interpretation: Performing Lab: Notes/Report: See Below For Report This report was dictated outside of the Poken system. 2nd trop plan admit 3510@1026 CLEAN Read See Below For Report Basic Metabolic Panel (BMP) 70298 Reviewed date:04/14/2025 04:04:08 PM Interpretation: Performing Lab: Notes/Report: 2nd trop plan admit 3510@1026 CLEAN 3510 Sodium 143 136-145 MMOL/L Potassium 3.2 3.5-5.1 MMOL/L LOW Chloride 108 98-107 MMOL/L HI CO2 26.5 20.0-31.0 MMOL/L Glucose Serum 98 71-110 MG/DL Testing p erformed at [facility], [address] [place] [address] [place] [address]. CLIA ID#: [id number] BUN 7 7-21 MG/DL Creat .86 .51-1.17 MG/DL U-unwiyk-s-benzoquinon e imine (NAPQI) is a metabolite of acetaminophen, NAPQI concentrations of apparoximately 10 mg/L correlation to toxic levels of acetaminophen demonstrates a greater than or equil to 10% change in results. NAPQI concentrations greater than this may lead to falsely depressed results for patient samples. Use of this assay is not recommended for patients undergoing treatment with phenindione, due to the potential for falsely depressed results. GFR 74.7 NA Calculation pe rformed from GFR calculator provided by the National Kid[employer] Foundation. Glomerular Filtration rate(GRF) is the best overall index of kidney function. Normal GFR varies according to age,sex, body size, and declines with age. The National Kidney Foundation recommends using the CKD-EPI Creatinine Equation(2020) to estimate GFR. Anion Gap 12 5-15 BUN/Creat Ratio 8.1 12.0-20.0 % LOW Calcium 8.5 8.7-10.4 MG/DL LOW Osmo Serum,Calculated 294 280-300 MOSM/KG Lipid Panel Reflex DLD 8006 1 09427 Reviewed date:04/14/2025 04:04:08 PM Interpretation: Performing Lab: Notes/Report: 2nd trop plan admit 3510@1026 CLEAN 3510 Trig 125 NA Classification Guidelines:Triglyceride s Adults: >20yrs Desirable <150 Borderline High 150-199 High 200-499 Very high >=500 Children: Male 0-4 yr 22-99 5-9 yr 30-101 10-14 yr 32-125 15-19 yr 37-148 Children: Female 0-4 yr 34-112 5-9 yr 32-105 10-14 yr 37-131 15-19 yr 39-132 Chol 148 <=200 MG/DL HDL 46 39-96 MG/DL Reference Ranges:HDL Male: 5-9y 38-75 10-14y 37-74 15-19y 30-63 >=20y 40-59 Female: 5-9y 36-73 10-14y 37-70 15-19y 35-74 >=20y 40-59 CH/HDL 3.2 0.0-4.9 RATIO LDL 77 0-130 MG/DL LDL result is inaccurate , if Trig is >400 mg/dl. See DLDL result. Troponin-I 28197 Reviewed date:04/14/2025 04:04:08 PM Interpretation: Performing Lab: Notes/Report: 2nd trop plan admit 3510@1026 CLEAN 3510 Troponin-I 671 2-34 pg/mL CRIT called to [facility] . Radha Chambers RN. 03/30/2025 02:04:08 RBV/ CBC [place] Diff 13593, 8 5007 Reviewed date:04/14/2025 04:04:08 PM Interpretation: Performing Lab: Notes/Report: 2nd trop plan admit 3510@1026 CLEAN 3510 WBC 5.4 4.5-11.0 X10'3 RBC 3.56 4.00-5.20 X10'6 LOW Hgb 10.1 12.0-16.0 G/DL LOW Hct 32.1 36.0-46.0 % LOW MCV 90.2 80.0-100.0 FL MCH 28.4 27.0-31.0 PG MCHC 31.5 31.0-37.0 G/DL Platelet 214 150-400 X10'3 RDW-SD 44.3 35.0-49.0 FL RDW-CV 13.2 12.2-15.6 % MPV 9.9 9.2-12.0 FL Review Auto Diff Conf WBC Auto Diff--69200 Reviewed date:04/14/2025 04:04:08 PM Interpretation: Performing Lab: Notes/Report: Added by Discern Rules 2nd trop plan admit 3510@1026 CLEAN 3510 Neutro Auto% 43.6 40.0-70.0 % Lymph Auto% 45.4 22.0-44.0 % HI [place] Auto% 7.6 3.0-7.0 % HI Eos Auto% 2.6 2.0-4.0 % Baso Auto% 0.6 0.0-1.0 % NRBC% .00 .00-.20 /100 intact WBC's Neutro Abs 2.37 .80-7.70 Absolute Neutrophil Count 2370 NA Lymph Abs 2.46 .10-4.10 [place] Abs .41 .20-1.00 Eos Abs .14 .00-.40 Baso Abs .03 .00-.20 NRBC# .00 .00-.20 X10'3 Imm Gran Abs .01 .00-.10 Imm Gran% .2 .0-.4 % Tox Results Reviewed date:06/11/2025 10:07:22 AM Interpretation: Performing Lab: Notes/Report: Potassium (B) 19357 Reviewed date:04/14/2025 04:04:18 PM Interpretation: Performing Lab: Notes/Report: 2nd trop plan admit 3510@1026 CLEAN 3510 Potassium 3.3 3.5-5.1 MMOL/L LOW Phosphorus (B) 99736 Reviewed date:04/14/2025 04:04:18 PM Interpretation: Performing Lab: Notes/Report: 2nd trop plan admit 3510@1026 CLEAN 3510 Phos 2.3 2.4-5.1 MG/DL LOW Magnesium (B) 60852 Reviewed date:04/14/2025 04:04:18 PM Interpretation: Performing Lab: Notes/Report: 2nd trop plan admit 3510@1026 CLEAN 3510 Magnesium 2.0 1.8-2.4 MG/DL Urine Confirmation Panel (in strument) - 16776 Reviewed date:06/11/2025 10:07:22 AM Interpretation: Performing Lab: Notes/Report: 6-Acetylmorphine 0 <6 ng/mL N This cooper t was developed and its performance characteristics determined by [facility]. It has not been cleared or approved by the U.S. Food and Drug Administration. 7-Aminoclonazepam 0 <60 ng/mL N This te st was developed and its performance characteristics determined by [facility]. It has not been cleared or approved by the U.S. Food and Drug Administration. Alprazolam 0 <60 ng/mL N This test was developed and its performance characteristics determined by [facility]. It has not been cleared or approved by the U.S. Food and Drug Administration. Amphetamine 0 <75 ng/mL N This test was developed and its performance characteristics determined by [facility]. It has not been cleared or approved by the U.S. Food and Drug Administration. aOH-Alprazolam 0 <60 ng/mL N This test was developed and its performance characteristics determined by [facility]. It has not been cleared or approved by the U.S. Food and Drug Administration. Buprenorphine 0.0 <7.5 ng/mL N This test w as developed and its performance characteristics determined by [facility]. It has not been cleared or approved by the U.S. Food and Drug Administration. Norbuprenorphine 0.0 <37.5 ng/mL N This te st was developed and its performance characteristics determined by [facility]. It has not been cleared or approved by the U.S. Food and Drug Administration. Carisoprodol 0 <75 ng/mL N This test wa s developed and its performance characteristics determined by [facility]. It has not been cleared or approved by the U.S. Food and Drug Administration. Codeine 0 <75 ng/mL N This test was developed and its performance characteristics determined by [facility]. It has not been cleared or approved by the U.S. Food and Drug Administration. EDDP 0 <75 ng/mL N This test was developed and its performance characteristics determined by [facility]. It has not been cleared or approved by the U.S. Food and Drug Administration. Fentanyl 0 <6 ng/mL N This test was developed and its performance characteristics determined by [facility]. It has not been cleared or approved by the U.S. Food and Drug Administration. Hydrocodone 131 <75 ng/mL H This test was developed and its performance characteristics determined by [facility]. It has not been cleared or approved by the U.S. Food and Drug Administration. Hydromorphone 187 <75 ng/mL H This test w as developed and its performance characteristics determined by [facility]. It has not been cleared or approved by the U.S. Food and Drug Administration. Lorazepam 0 <60 ng/mL N This test was developed and its performance characteristics determined by [facility]. It has not been cleared or approved by the U.S. Food and Drug Administration. MDMA 0 <75 ng/mL N This test was developed and its performance characteristics determined by [facility]. It has not been cleared or approved by the U.S. Food and Drug Administration. Meperidine 0.0 <37.5 ng/mL N This test was developed and its performance characteristics determined by [facility]. It has not been cleared or approved by the U.S. Food and Drug Administration. Meprobamate 0 <75 ng/mL N This test was developed and its performance characteristics determined by [facility]. It has not been cleared or approved by the U.S. Food and Drug Administration. Methamphetamine 0 <75 ng/mL N This test was developed and its performance characteristics determined by [facility]. It has not been cleared or approved by the U.S. Food and Drug Administration. Methadone 0 <75 ng/mL N This test was developed and its performance characteristics determined by [facility]. It has not been cleared or approved by the U.S. Food and Drug Administration. Morphine 0 <75 ng/mL N This test was developed and its performance characteristics determined by [facility]. It has not been cleared or approved by the U.S. Food and Drug Administration. Nordiazepam 0 <60 ng/mL N This test was developed and its performance characteristics determined by [facility]. It has not been cleared or approved by the U.S. Food and Drug Administration. Norfentanyl 0 <6 ng/mL N This test was developed and its performance characteristics determined by [facility]. It has not been cleared or approved by the U.S. Food and Drug Administration. Normeperidine 0.0 <37.5 ng/mL N This test was developed and its performance characteristics determined by [facility]. It has not been cleared or approved by the U.S. Food and Drug Administration. O-desmethyltramadol 0 <75 ng/mL N This test was developed and its performance characteristics determined by [facility]. It has not been cleared or approved by the U.S. Food and Drug Administration. Oxazepam 0 <60 ng/mL N This test was developed and its performance characteristics determined by [facility]. It has not been cleared or approved by the U.S. Food and Drug Administration. Oxycodone 0.0 <37.5 ng/mL N This test was developed and its performance characteristics determined by [facility]. It has not been cleared or approved by the U.S. Food and Drug Administration. Oxymorphone 0 <75 ng/mL N This test was developed and its performance characteristics determined by [facility]. It has not been cleared or approved by the U.S. Food and Drug Administration. Phencyclidine 0.0 <7.5 ng/mL N This test w as developed and its performance characteristics determined by [facility]. It has not been cleared or approved by the U.S. Food and Drug Administration. Tapentadol 0.0 <37.5 ng/mL N This test was developed and its performance characteristics determined by [facility]. It has not been cleared or approved by the U.S. Food and Drug Administration. Temazepam 0 <60 ng/mL N This test was developed and its performance characteristics determined by [facility]. It has not been cleared or approved by the U.S. Food and Drug Administration. Tramadol 0 <75 ng/mL N This test was developed and its performance characteristics determined by [facility]. It has not been cleared or approved by the U.S. Food and Drug Administration. Norhydrocodone 419 <75 ng/mL H This test was developed and its performance characteristics determined by [facility]. It has not been cleared or approved by the U.S. Food and Drug Administration. Noroxycodone 0 <38 ng/mL N This test wa s developed and its performance characteristics determined by [facility]. It has not been cleared or approved by the U.S. Food and Drug Administration. Pregabalin 0 <225 ng/mL N This test was developed and its performance characteristics determined by [facility]. It has not been cleared or approved by the U.S. Food and Drug Administration. Gabapentin 0 <225 ng/mL N This test was developed and its performance characteristics determined by [facility]. It has not been cleared or approved by the U.S. Food and Drug Administration. Benzoylecgonine 0.0 <37.5 ng/mL N This cooper t was developed and its performance characteristics determined by [facility]. It has not been cleared or approved by the U.S. Food and Drug Administration. 4-Hydroxy Xylazine 0 <25 ng/mL N This t est was developed and its performance characteristics determined by [facility]. It has not been cleared or approved by the U.S. Food and Drug Administration. Urine Drug Screen (cup read) - 05343 Reviewed date:06/03/2025 04:26:29 PM Interpretation: Performing Lab: Notes/Report: OPI + Electrocardiogram (EKG) - 93 000 Reviewed date:05/13/2025 09:46:20 AM Interpretation: Performing Lab: Notes/Report: Reason For Referral Reason eval and Treat Diagnosis 1 Chronic pain (G89.29 ) Referring Provider First Name Ling Referring Provider Last Name Genaro Referring Provider Speciality Nurse Dinesh chaudhari [facility]erred Provider Berna Billings Referred Address [address] [place] [address],[facility],[id number], Referred Provider Specialty Pain Medicin e General Notes Uzma Shipley 12:52:23 PM CDT > atc pt, lvmQuinten Twyla A 06/12/2025 10:54:14 AM CDT > atc pt, lvm, Uzma Shipley 06/16/2025 12:01:19 PM CDT > this is an establish pt Clinical Notes Elvis Gibbs 05/2025 01:38:54 PM >wants mailed Referral Priority Routine Reason Referral Pelvic floo r therapy Diagnosis 1 Urge incontinence (N 39.41) Referral Organization [facility] Referring Provider First Name Mini Referring Provider Last Name Gregorio Wiseman Referring Provider Speciality Pain Medic ine Referred Provider [facility] Referred Provider Specialty Physical The rapist Referral Priority Routine Medications Medication SIG (Take, Route, Frequency, Duration) Notes Start Date End Date Status Amitriptyline HCl 150 MG Tablet 1 tablet at bedtime Orally Once a day Active Clopidogrel Bisulfate 75 MG Tablet 1 tablet Orally Once a day Active busPIRone HCl 5 MG Tablet 1 tablet Orall y Twice a day Active Plavix 75 MG Tablet 1 tablet Orally Once a day Active Magnesium 400 MG Tablet as directed Orally Active Protonix 40 MG Tablet Delayed Release 1 tablet 1/2 to 1 hour before morning meal Once a day Active Fluticasone Propionate (Inhal) Active Aspirin 81 MG Tablet Chewable 1 tablet Orally Once a day Active Ventolin HFA 108 (90 Base) MCG/ACT Aerosol Solution 1 puff as needed Inhalation every 4 hrs Active Zofran ODT PRN Active Toprol XL 50 MG Tablet Extended Release 24 Hour 1 tablet Orally Once a day Active Potassium Chloride ER 10 MEQ Tablet Extended Release 1 tablet with food Orally daily Active HYDROcodone-Acetaminophen 10-325 MG Tablet 1 tablet as needed Orally every 4-6 hrs; Duration: 30 days As needed Not to exceed 3 per day fill 06/20/25 06/04/2025 07/20/2025 Active [place] 1-2 tab every 4 hours as needed Active hydroCHLOROthiazide 12.5 MG Capsule 1 capsule in the morning Orally Once a day Active BuSpar TID PRN Active Social History Tobacco Use: Social History Observation Description Date Details (start date - stop date) Former Smoker NA - NA Social History Drugs/Alcohol: Social Info Question Answer Notes Caffeine Intake: more than 4 cups per day Tobacco Use: Social Info Question Answer Notes Tobacco Control (Standard) Tobacco use: Former smoker How long has it been since you last smoked? Greater than 10 years Additional Details Category Social Info Options Details Miscellaneous: Marital status: Sexually active: no When I was acti ve pain meds made it bettr or even more possible. Painful intercourse Sexual abuse: no [employer] Drugs/Alcohol: Do you smoke marijuana? Ad mits, Recreational use Do you drink alcohol? No Problems Problem Type SNOMED Code ICD Code Onset Dates Problem Status W/U Status Risk Notes Problem Chronic pain syndrome (294096548) Chronic pain syndrome (G89.4) Active confirmed Problem Urge incontinence of urine (52065459) Urge incontinence (N39.41) Active confirmed Problem High risk drug monitoring status (255582012) jail (current) use of opiate analgesic (Z79.891) Active confirmed Problem Cervical spondylosis (360739010) Cervical spondylosis (M47.812) Active confirmed Problem Atherosclerotic heart disease of [place] coronary artery without angina pectoris (014506174299543) Arteriosclerosis of coronary artery (I25.10) Active confirmed Problem Chronic pain (20881198) Chronic pain (G89.29) Active confirmed Problem Acute non-ST segment elevation myocardial infarction (369286319) NSTEMI (non-ST elevated myocardial infarction) (I21.4) Active confirmed Problem Stented coronary artery (204576218) Stented coronary artery (Z95.5) Active confirmed Problem Pelvic floor dysfunction (671742010) Pelvic floor dysfunction (M62.89) Active confirmed Problem Lumbosacral spondylosis (252788005) Lumbosacral spondylosis (M47.817) Active confirmed Vital Signs Heart Rate 76 /min 05/12/2025 Height-cm 175.26 cm 06/03/2025 Oximetry 97 % 05/12/2025 Blood pressure diastolic 84 mm Hg 05/12/2025 Weight-kg 81.65 kg 06/03/2025 Height 69 in 06/03/2025 Blood pressure systolic 130 mm Hg 05/12/2025 Weight 180 lbs 06/03/2025 BMI 26.58 kg/m2 06/03/2025 Procedures Procedure Date Ordered Date Performed Result Body Sit e Coronary Angio with Left Heart Cath 05/08/2025 05/08/2025 N/A Encounters Encounter Location Date Provider Diagnosis [facility] [address] [place] [id number] 05/12/2025 Mara Fink Arteriosclerosis of coronary artery I25.10 ; NSTEMI (non-ST elevated myocardial infarction) I21.4 ; Stented coronary artery Z95.5 and Current use of aspirin Z79.82 [facility] [place] [address] [place] [address] 06/03/2025 Mini wolff Chronic pain syndrome G89.4 ; Cervical spondylosis M47.812 ; Lumbosacral spondylosis M47.817 ; Pelvic floor dysfunction M62.89 and jail (current) use of opiate analgesic Z79.891 Assessments Encounter Date Diagnosis (ICD Code) Assessment Notes Treatment Notes Treatment Clinical Notes Section Notes 05/12/2025 Arteriosclerosis of coronary artery (ICD-10 - I25.10) EKG today shows a normal sinus rhythm ventricular rate 73 KS interval 174 QRS duration 98 QTc 445 05/12/2025 NSTEMI (non-ST elevated myocardial infarction) (ICD-10 - I21.4) 06/03/2025 Chronic pain syndrome (ICD-10 - G89.4) She is a very pleasant patient with cervical spondylosis and lumbosacral spondylosis mediated pain. She reports Rhizotomies presumed to be bilateral L4/L5 L5/S1 from Dr. Villegas's office. We will obtain records from his office to evaluate which levels. Will also obtain record of last X-ray of her L spine and C spine. She has intermittent urge incontinence and spasms of her pelvic floor. She was inquiring options for this and will consider a referral to pelvic floor physical therapy. It appears that [facility] might be the only place in [facility] that offers this for her. In the past, she has been on [place] 10 mg up to 3 tablets per day, but they ended up having her take 2 of the Hydrocodone tablets per day to be a total of six. I will switch her back to Hydrocodone 10 mg up to 3 tablets per day. PDMP reviewed with no untoward events. Will obtain UDS confirmation today as she is establishing compliance. I will see patient back in 5 weeks for reevaluation. 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 Mini wolff. Mini Del Real, personally performed the services described in this documentation, as scribed by Bradley Ann, and it is both accurate and complete. RECOMMEND URINE TESTING TODAY Urine drug screening will be performed today to monitor compliance with opioid therapy or to serve as a baseline screen for a patient who may be a candidate for opioid therapy in the future, pending UDS results. We will monitor with in-office testing (rapid testing) today and review the results prior to dispensing prescription. All positive results will be sent for quantitative analysis to ensure accuracy and quantify amounts. Any expected positive results that return negative will also be sent for quantitative analysis. Any questionable read or any medication we cannot test for in the office confidently will be sent for quantitative analysis, as well. Patient has been made aware of this policy and agrees to abide by our urine testing policy. Plan Of Treatment Pending Test Test Name Order Date Cervical Spine w/ Obl/Flex/Ext Comp-7205 2 06/03/2025 Lumbosacral Spine Comp w/ Bending-[id number] 06/03/2025 Next Appt Details Provider Name:Salazar Wilson , 07/10/2025 02:45:00 PM, [address], [address], Provider Name:Mini Dumont Caleb, 07/15/2025 10:20:00 AM, [address] [place], [address], Insurance Providers Payer Name Payer Address Payer Phone Subscriber Number Group Number Insured Name Patient Relationship to Insured Coverage Start Date Coverage End Date [employer] [address] [address] [place] [address] [id number] Alie Prabhu Self - patient is the insured [place] Medicaid [address] [place] [address] [id number] Joseqasim Prabhu Self - patient is the insured Medical (General) History Medical History History ICD Code Arthritis Fibromyalgia Reynaulds disease High blood pressure Peptic ulcer disease Hx of mini stroke Hx of heart attack Hx of 2 stents Measles/mumps/rubella bronchitis/emphysema Stomach Ulcer migraine headaches constipation kidney infection kidney stones Bleeding Disorder/blood thinners Surgical History Surgery Date(Month/Year) Lumbar nerve burning laproscopic Endometriosis treatment Hysterectomy (uterus only) 1996 1. Radial left heart cathete rization with coronary angiography and ventriculography. 2. Percutaneous transluminal coronary angioplasty drug-eluting stent x2, right coronary artery. 7.5.25 section 1.3.1989 Hospitalization History Reason Date(Month/Year) ED- Nausea, Vomiting 03/28-03/30/2025
--- NOTE | 2025-06-23 18:28 | ECG_ITS ---
[facility] Test Date: 2025-06-23 Pat Name: Johnna Strange Department: Room: Gender: Female Personnel Training Officer: : 1960 Requested By: Paris Maurer Order Number: [id number] Josephine MD: Adalberto Barahona M.D. Measurements Intervals [place] Rate: 70 P: 45 VT: 180 QRS: -22 QRSD: 109 T: 11 QT: 434 QTc: 471 Interpretive Statements SINUS RHYTHM BORDERLINE LEFT AXIS DEVIATION [QRS AXIS < -20] Compared to ECG 03/31/2025 11:50:39 Myocardial infarct finding no longer present Electronically Signed On 06-26-2025 08:47:08 CDT by Adalberto Barahona M.D. [email or web address]
--- NOTE | 2025-06-23 18:30 | W.ED.ABDPA2 ---
HPI - Abdominal Pain General: Chief Complaint: Abdominal Pain Stated Complaint: abd pain - anxiety attack Time Seen by Provider: 06/23/25 18:23 History of Present Illness: 64-year-old female with a recent history of ND with stent placement . This was done at [facility] recently. She presents with atypical chest pain. She had a similar episode recently and thinks it may be related to this stents. She has been taking her Plavix now. She says she started with lower abdominal pain and then developed epigastric pain and nausea which was similar to when she had her heart attack. This is now improved some. She says she has some stressful things going on and she thinks this may be what is causing it Related Data Home Medications ?Medication ?Instructions ?Recorded ?Confirmed amitriptyline 150 mg tablet 150 mg PO BEDTIME 12/28/23 01/08/25 buspirone 5 mg tablet 5 mg PO TID 12/28/23 01/08/25 fluticasone propionate 50 1 spray intranasal DAILY PRN 12/28/23 01/08/25 mcg/actuation nasal allergies spray,suspension (Allergy Relief (fluticasone)) hydrochlorothiazide 50 mg tablet 50 mg PO DAILY 12/28/23 01/08/25 hydrocodone 5 mg-acetaminophen 325 1 - 2 tab PO .Q4-6H PRN pain 10/19/24 01/08/25 mg tablet omeprazole 20 mg tablet,delayed 20 mg PO DAILY 10/19/24 01/08/25 release potassium chloride 10 mEq 10 meq PO DAILY 10/19/24 01/08/25 tablet,extended release Previous Rx's ?Medication ?Instructions ?Recorded albuterol sulfate 90 mcg/actuation 1 - 2 puff inhalation Q6H PRN 02/27/23 aerosol inhaler (Ventolin HFA) shortness of breath or wheezing #8.5 grams ondansetron 4 mg disintegrating 4 mg PO Q6H PRN nausea and 10/19/24 tablet vomiting #14 tabs estradiol 10 mcg vaginal tablet 10 mcg vaginal DIRECTED #30 tabs 01/08/25 (Vagifem) Allergies Allergy/AdvReac Type Severity Reaction Status Date / Time duloxetine (From Cymbalta) Allergy Unknown Verified 01/08/25 11:25 morphine Allergy ADR-Nausea Verified 01/08/25 11:25 estradiol vaginal cream Allergy ADR-Itching Uncoded 01/08/25 11:25 Review of Systems Narrative: Constitutional symptoms: Negative except as documented in HPI. Skin symptoms: Negative except as documented in HPI. Eye symptoms: Negative except as documented in HPI. ENMT symptoms: Negative except as documented in HPI. Respiratory symptoms: Negative except as documented in HPI. Cardiovascular symptoms: Negative except as documented in HPI. Gastrointestinal symptoms: Negative except as documented in HPI. Genitourinary symptoms: Negative except as documented in HPI. Musculoskeletal symptoms: Negative except as documented in HPI. Neurologic symptoms: Negative except as documented in HPI. Psychiatric symptoms: Negative except as documented in HPI. Endocrine symptoms: Negative except as documented in HPI. PFSH ED PFSH: Medical History (Updated 06/23/25 @ 20:00 by Paris Sabillon MD) History of coronary artery disease Acute pharyngitis Surgical History History of coronary angioplasty with insertion of stent March 2025 [facility] Hx of colonoscopy History of esophagogastroduodenoscopy (EGD) Hx of section Hx of laparoscopy Hx of hysterectomy Family History Mother Hypertension Diabetes Brother Hypertension Sister Hypertension Denies family history of Colon cancer Ovarian cancer Prostate cancer Heart disease Hypercholesteremia Breast cancer Uterine cancer Thyroid disease Stroke Social History Smoking and tobacco/nicotine status: former use of tobacco/nicotine Physical Exam Narrative: EXAM NARRATIVE: General: Alert, no acute distress. Skin: Warm, dry. Head: Normocephalic, atraumatic. Neck: Supple, trachea midline. Eye: Extraocular movements are intact. Ears, nose, mouth and throat: mucosa moist. Cardiovascular: Regular, Normal peripheral perfusion. Respiratory: Lungs are clear to auscultation, respirations are non-labored, breath sounds are equal, Symmetrical chest wall expansion. Gastrointestinal: Soft, Nontender, Non distended Musculoskeletal: Normal ROM, no deformity. Neurological: Alert and oriented, No focal neurological deficit observed. Psychiatric: Cooperative, appropriate mood & affect. Course Vital Signs: Vital signs: Vital Signs Temperature 97.7 F 06/23/25 18:09 Pulse Rate 69 06/23/25 18:09 Respiratory Rate 17 06/23/25 18:09 Blood Pressure 156/100 06/23/25 18:09 Pulse Oximetry 100 06/23/25 18:09 Oxygen Delivery Me thod Room Air 06/23/25 18:09 MDM - Abdominal Pain Medical Decision Making Differential diagnosis for patient with abdominal/equivalent of her chest pain includes but is not limited to and based on the above HPI, review of systems and physical exam: Pneumonia. unstable angina. angina. Acute coronary syndrome / ND. Pulmonary embolism. Costochondritis / musculoskeletal. Pleurisy. Pericarditis. Esophageal spasm. Pancreatis. Cholecystitis. Orders placed to evaluate differential diagnosis based on the above differential, HPI and physical exam EKG: Time 1828. Rate 70. Normal sinus rhythm, No ST-T changes, no ectopy, normal NC & QRS intervals, This was reviewed and interpreted by myself the ER physician at 1834 Abdomen x-ray: Nonspecific bowel gas pattern. No evidence of free air or obstruction. Films were interpreted by myself the emergency room provider and pending final radiology review. Lab Review: Laboratory results were reviewed and interpreted by myself the emergency room physician. No leukocytosis. No anemia. Urinalysis is negative for infection. No renal failure. Cardiac marker negative. I reviewed the patient's medical record. Reexamination: Patient remained stable. No increased work of breathing. No altered mental status. No focal motor deficits. Patient has been pain-free since she is been here Assessment and plan: Noncardiac chest pain. - Discharged home - Discussed plan with patient. Answered any questions. - Evaluation and treatment of this problem were appropriate in the emergency setting. Lab Data 06/23/25 19:13 06/23/25 19:13 Labs/Radiology: Radiology Impressions Abdomen X-Ray 06/23/25 18:20 IMPRESSION: Kdczctew-zl-ftsbf amount of solid stool seen in the hepatic flexure and descending colon. Correlate for symptoms of constipation. No obstruction. Laboratory Results WBC 11.32 10^3/uL (3.29-11.43) 06/23/25 19:13 RBC 4.21 10^6/uL (3.85-5.65) 06/23/25 19:13 Hgb 12.40 g/dL (11.27-16.99) 06/23/25 19:13 Hct 37.9 % (36-47) 06/23/25 19:13 MCV 90.0 fl (85-98) 06/23/25 19:13 MCH 29.5 pg (27-33) 06/23/25 19:13 MCHC 32.7 g/dL (30-55) 06/23/25 19:13 RDW 13.5 % (12.1-15.1) 06/23/25 19:13 Plt Count 315 10^3/cmm (157-399) 06/23/25 19:13 MPV 9.3 fL (7.4-10.4) 06/23/25 19:13 Neut % (Auto) 82.0 % 06/23/25 19:13 Lymph % (Auto) 11.4 % 06/23/25 19:13 Johnson % (Auto) 5.1 % 06/23/25 19:13 Eos % (Auto) 0.7 % 06/23/25 19:13 Baso % (Auto) 0.4 % 06/23/25 19:13 Neut # (Auto) 9.28 10^3/uL (1.8-7.7) H 06/23/25 19:13 Lymph # (Auto) 1.3 10^3/uL (0.8-4.8) 06/23/25 19:13 Johnson # (Auto) 0.6 10^3/uL (0.2-0.9) 06/23/25 19:13 Eos # (Auto) 0.1 10^3/uL (0.0-0.8) 06/23/25 19:13 Baso # (Auto) 0.0 10^3/uL (0.0-0.1) 06/23/25 19:13 Nucleated RBC % (auto) 0 % 06/23/25 19:13 Nucleated RBCs # 0.0 /100WBC 06/23/25 19:13 Sodium 141 mmol/L (136-145) 06/23/25 19:13 Potassium 3.8 mmol/L (3.5-5.1) 06/23/25 19:13 Chloride 99 mmol/L (98-107) 06/23/25 19:13 Carbon Dioxide 28 mmol/L (22-29) 06/23/25 19:13 Anion Gap 17.8 (5-19) 06/23/25 19:13 BUN 21 mg/dL (8-23) 06/23/25 19:13 Creatinine 0.7 mg/dL (0.5-0.9) 06/23/25 19:13 GFR Calculation 84.2 mL/min (90-130) L 06/23/25 19:13 Glucose 98 mg/dL (65-115) 06/23/25 19:13 Calculated Osmolality 295 mOsm/kg (285-295) 06/23/25 19:13 Lactic Acid 1.8 mmol/L (0.5-2.2) 06/23/25 19:13 Calcium 9.5 mg/dL (8.5-10.5) 06/23/25 19:13 Total Bilirubin 0.2 mg/dL (0.15-1.2) 06/23/25 19:13 AST 16 U/L (0-32) 06/23/25 19:13 ALT 10 U/L (0-33) 06/23/25 19:13 Alkaline Phosphatase 95 U/L (35-105) 06/23/25 19:13 Troponin T Baseline < 6 ng/L (0-10) 06/23/25 19:13 Total Protein 7.6 g/dL (6.6-8.7) 06/23/25 19:13 Albumin 4.7 g/dL (3.5-5.2) 06/23/25 19:13 Globulin 2.9 g/dL (1.3-4.6) 06/23/25 19:13 Lipase 27 U/L (13-60) 06/23/25 19:13 Urine Color Yellow (Yellow) 06/23/25 19:02 Urine Appearance Clear (CLEAR) 06/23/25 19:02 Urine pH 7.5 (5-7) 06/23/25 19:02 Ur Specific [place] 1.013 (1.005-1.030) 06/23/25 19:02 Urine Protein Negative (Negative) 06/23/25 19:02 Urine Glucose (UA) Negative (Normal) 06/23/25 19:02 Urine Ketones Negative (Negative) 06/23/25 19:02 Urine Blood Negative (Negative) 06/23/25 19:02 Urine Nitrate Negative (Negative) 06/23/25 19:02 Urine Bilirubin Negative (Negative) 06/23/25 19:02 Urine Urobilinogen 0.2 mg/dL (Negative) 06/23/25 19:02 Ur Leukocyte Esterase Negative (Negative) 06/23/25 19:02 Urine RBC None /hpf (0-2) 06/23/25 19:02 Urine WBC None /hpf (0-5) 06/23/25 19:02 Ur Squamous Epith Cells None /hpf (0-5) 06/23/25 19:02 Amorphous Sediment Not Reportable 06/23/25 19:02 Urine Bacteria None /hpf (NONE) 06/23/25 19:02 Influenza A (PCR) Negative (Negative) 06/23/25 19:10 Influenza Type B (PCR) Negative (Negative) 06/23/25 19:10 RSV (PCR) Negative (Negative) 06/23/25 19:10 SARS-CoV-2 (PCR) Negative (Negative) 06/23/25 19:10 All radiology interpretation(s) finalized by discharge Discharge Plan Discharge Patient Disposition: Home Clinical Impression: Atypical chest pain Condition: Stable Prescriptions: No Action albuterol sulfate [Ventolin HFA] 90 mcg/actuation HFA aerosol inhaler 1 - 2 puff inhalation Q6H PRN (Reason: shortness of breath or wheezing) Qty: 8.5 0RF amitriptyline 150 mg tablet 150 mg PO BEDTIME buspirone 5 mg tablet 5 mg PO TID fluticasone propionate [Allergy Relief (fluticasone)] 50 mcg/actuation spray,suspension 1 spray intranasal DAILY PRN (Reason: allergies) Rx Instructions: administer into each nostril hydrochlorothiazide 50 mg tablet 50 mg PO DAILY estradiol [Vagifem] 10 mcg tablet 10 mcg vaginal DIRECTED Qty: 30 3RF Rx Instructions: insert one tab intravaginally once nightly for 14 days; then transition to twice weekly potassium chloride 10 mEq Tablet Extended Release 10 meq PO DAILY omeprazole 20 mg Tablet,Delayed Release (Dr/Ec) 20 mg PO DAILY hydrocodone-acetaminophen 5-325 mg tablet 1 - 2 tab PO .Q4-6H MDD 6 tab PRN (Reason: pain) ondansetron 4 mg tablet,disintegrating 4 mg PO Q6H PRN (Reason: nausea and vomiting) Qty: 14 0RF Discharge Orders: Discharge ED (Routine); Ordered 06/23/25 Ordered By: Paris Sabillon Referrals: Ling Lam NP [Primary Care Provider, Unknown] Discharge Diet: Usual diet Discharge Activity: Increase activity as tolerated Patient Instructions: Noncardiac Chest Pain (ED), Opioid Safety, Pain Management, Patient Portal & Nallely Instructions Activity Restrictions/Additional Instructions: Thank you for choosing [facility] for your healthcare needs today. You have been screened and evaluated and felt safe for discharge. Health conditions do change or evolve sometimes and as such it is important that you follow up with your Primary Doctor to be re checked, 3-5 days is a general good time frame for follow up. You are always welcome to return to the ED for re assessment if your symptoms are worsening or you have new concerns Print Language: Danish Coding Level of Care Code ED Cheese Pancake Roller for Liana Argueta
[2025-06-23 19:14] VITALS: BP 156/95; PULSE 82; O2SAT 100
[2025-06-23 19:19] LABS: Glucose Urine UA Negative (Normal); Nitrate Urine Negative (Negative); Specific Gravity, Urine 1.013 (1.005-1.030)
[2025-06-23 19:44] VITALS: BP 142/98; PULSE 72; O2SAT 97
[2025-06-23 19:46] LABS: Hematocrit 37.9 % (36-47); Hemoglobin 12.40 g/dL (11.27-16.99); Mean Corpuscular HGB Conc 32.7 g/dL (30-55); Mean Corpuscular Hemoglobin 29.5 pg (27-33); Mean Corpuscular Volume 90.0 fl (85-98); Nucleated Red Blood Cells % 0 %; Platelet Count 315 10^3/cmm (157-399); Red Blood Count 4.21 10^6/uL (3.85-5.65); White Blood Count 11.32 10^3/uL (3.29-11.43)
[2025-06-23 19:56] LABS: Respiratory Syncytial Virus Ce NEGATIVE (Negative); SARS-CoV-2 PCR NEGATIVE (Negative)
[2025-06-23 20:05] LABS: Lactic Sepsis W/Reflex 1.8 mmol/L (0.5-2.2)
[2025-06-23 20:08] LABS: Troponin(5th) Baseline < 6 ng/L (0-10)
[2025-06-23 20:09] LABS: Alanine Aminotransferase 10 U/L (0-33); Albumin Level 4.7 g/dL (3.5-5.2); Alkaline Phosphatase 95 U/L (35-105); Anion Gap 17.8 (5-19); Aspartate Amino Transferase 16 U/L (0-32); Blood Urea Nitrogen 21 mg/dL (8-23); Calcium 9.5 mg/dL (8.5-10.5); Carbon Dioxide 28 mmol/L (22-29); Chloride 99 mmol/L (98-107); Creatinine Clr Calc Pharmacy 93.2363; Globulin 2.9 g/dL (1.3-4.6); Glucose 98 mg/dL (65-115); Lipase 27 U/L (13-60); Osmolality Calculated 295 mOsm/kg (285-295); Potassium 3.8 mmol/L (3.5-5.1); Sodium 141 mmol/L (136-145); Total Protein 7.6 g/dL (6.6-8.7)
[2025-06-23 21:00] VITALS: BP 119/89; PULSE 77; O2SAT 96
== END 2025-06-23 20:32 | disposition home or self-care (01) ==
PROVIDERS: Emergency Provider Emergency Medicine; PCP Nurse Practitioner Family
DX: R07.89 Other chest pain (principal); Z11.52 Encounter for screening for COVID-19; Z87.891 Personal history of nicotine dependence; I25.10 Atherosclerotic heart disease of native coronary artery without angina pectoris
CPT/HCPCS: 36415; 74018; 80053; 81001; 83605; 83690; 84484; 85025; 87040; 87637; 93005; 99285

== ENCOUNTER 2025-08-16 19:38 | Emergency (ER) | payer OTHER, MEDICARE, MEDICAID, SELFPAY ==
--- OUTSIDE RECORDS SUMMARY | 2025-06-26 08:00 | XMS_ITS ---
Author Organization [facility] Address [address] [place] [address] Care Team Providers Care Animal Park Code Enforcement Officer Name Role Phone Genaro BETANCURLing Bess Primary Care Provider Minerva Billings, Mini Unavailable Salazar Wilson Unavailable [phone] REASON FOR VISIT SPELLS HOT, SWEATING, FEELS HEAVY Social History Sex Assigned At : Social History Observation Description Sex Assigned At Female Encounters Encounter Location Date Provider Diagnosis [facility] [address] [place] [address], [place] [address] 06/26/2025 Salazar Wilson Plan Of Treatment Next Appt Details Provider Name:Mini Del Real Julia Ellis, 09/09/2025 09:40:00 AM, [address] [place], [address], Provider Name:Salazar Wilson , 10/07/2025 01:15:00 PM, [address] [place] [address], [place], [address], Progress Notes * Johnna RIVERA CDOB: 0 (65 yo F)Acc No.[id number]:06/26/2025 Progress Notes Patient: Johnna Aguirre Provider: Ginger Wilson MD :1960 A ge:64 Y S ex:Female Date:06/26/2025 Address:[address] [place], [place] [phone] Pcp:Ling Lam APRN Subjective: * Chief Complaints: * SPELLS HOT, SWEATING, FEELS HEAVY Care Plan Details* * Electronic signature of Karime Wilson MD on 08/16/2025 at 07:56 PM OVEN OPERATOR Sign off status: Pending * Provider: Ginger Wilson MD Date: Generated for Juany lovell/Seth/Annaitting on: 10/16/2024 07:56 PM OVEN OPERATOR
[2025-08-16 19:49] VITALS: BP 174/100; PULSE 79; RESP 16; TEMP 36.5; O2SAT 100; BMI 25.4
[2025-08-16 19:55] VITALS: BP 174/100; PULSE 79; RESP 16; TEMP 36.5; O2SAT 100
--- OUTSIDE RECORDS SUMMARY | 2025-08-16 19:56 | XMS_ITS | Patient Health Record ---
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 tree, grass) Unknown Allergy Active Results Component Value Reference Range Flag Notes Urine Drug Screen (cup read) - 09084 Reviewed date:06/03/2025 04:26:29 PM Interpretation: Performing Lab: Notes/Report: OPI + Urine Confirmation Panel (in strument) - 56346 Reviewed date:06/11/2025 10:07:22 AM Interpretation: Performing Lab: [...] by the U.S. Food and Drug Administration. Magnesium (B) 55140 Reviewed date:04/14/2025 04:04:18 PM Interpretation: Performing Lab: Notes/Report: 3510 2nd trop plan admit 3510@1026 CLEAN Magnesium 2.0 1.8-2.4 MG/DL Phosphorus (B) 08228 Reviewed date:04/14/2025 04:04:18 PM Interpretation: Performing Lab: Notes/Report: 2nd trop plan admit 3510@1026 CLEAN 3510 Phos 2.3 2.4-5.1 MG/DL LOW Potassium (B) 29347 Reviewed date:04/14/2025 04:04:18 PM Interpretation: Performing Lab: Notes/Report: 2nd trop plan admit 3510@1026 CLEAN 3510 Potassium 3.3 3.5-5.1 MMOL/L LOW Schedule Confirmation Reviewed date:04/14/2025 04:04:08 PM Interpretation: Performing Lab: Notes/Report: Heart Cath Lt poss PTCA Prothrombin Time 96976 Reviewed date:04/14/2025 04:04:08 PM Interpretation: Performing Lab: Notes/Report: 3510 2nd trop plan admit 3510@1026 CLEAN ProTime 10.4 9.1-11.9 SEC Normal Range : 9.1-11.9 INR .98 .90-1.20 Therapeutic Range: 2.0-3.0 Therapaeutic Range for heart valve replacement: 2.5-3.50 Basic Metabolic Panel (BMP) 10637 Reviewed date:04/14/2025 04:04:08 PM Interpretation: Performing Lab: Notes/Report: 2nd trop plan admit 3510@1026 CLEAN 3510 Sodium 144 136-145 MMOL/L Potassium 3.2 3.5-5.1 MMOL/L LOW Chloride 108 98-107 MMOL/L HI CO2 28.5 20.0-31.0 MMOL/L Glucose Serum 112 71-110 MG/DL HI Testing p erformed at [facility], [address] [place] [address] [place] [address]. CLIA ID#: [id number] BUN 8 7-21 MG/DL Creat .80 .51-1.17 MG/DL W-avqpai-k-benzoquinon e imine (NAPQI) is a metabolite of [...] Serum,Calculated 297 280-300 MOSM/KG Partial Thromboplastin Time 86751 Reviewed date:04/14/2025 04:04:08 PM Interpretation: Performing Lab: Notes/Report: 2nd trop plan admit 3510@1026 CLEAN 3510 PTT 28.5 22.6-31.8 SEC Therapeutic Range: 60-100. Critical Value Starting at > 100. CBC Reflex Man Diff 13771, 8 0256 Reviewed date:04/14/2025 04:04:08 PM Interpretation: Performing Lab: [...] FL Review Auto Diff Conf WBC Auto Diff--45951 Reviewed date:04/14/2025 04:04:08 PM Interpretation: Performing Lab: Notes/Report: Added by Discern Rules 2nd trop plan admit 3510@1026 CLEAN 3510 Neutro Auto% 56.3 40.0-70.0 % Lymph Auto% 33.9 22.0-44.0 % [place] Auto% 7.3 3.0-7.0 % HI Eos Auto% 1.7 2.0-4.0 % LOW Baso Auto% 0.6 0.0-1.0 % NRBC% .00 .00-.20 /100 intact WBC's Neutro Abs 2.99 .80-7.70 Absolute Neutrophil Count 2990 NA Lymph Abs 1.80 .10-4.10 [place] Abs .39 .20-1.00 Eos Abs .09 .00-.40 Baso Abs .03 .00-.20 NRBC# .00 .00-.20 X10'3 Imm Gran Abs .01 .00-.10 Imm Gran% .2 .0-.4 % Echo Complete [id number] Reviewed date:04/14/2025 04:04:08 PM Interpretation: Performing Lab: Notes/Report: Cardiopulmonary Services Name: PRABHU RIVERA Study Date: 03/29/2025 : 1960 Patient Location: [facility] Age: 64 yrs Gender: Female Height: 69 [...] Wilson Referring Physician: Mohinder Mays Performed By: Sma Parker RCS zzzHea Cath Lt poss PTCA Reviewed date:04/14/2025 04:04:08 PM Interpretation: Performing Lab: Notes/Report: [id number]=iSite Schedule Confirmation Reviewed date:04/14/2025 04:04:08 PM Interpretation: Performing Lab: Notes/Report: Heart Cath Lt poss PTCA Echo Complete [id number] Reviewed date:04/14/2025 04:04:18 PM Interpretation: Performing Lab: Notes/Report: [id number] Basic Metabolic Panel (BMP) 51522 Reviewed date:04/14/2025 04:04:08 PM Interpretation: Performing Lab: Notes/Report: 3510 2nd trop plan admit 3510@1026 CLEAN Sodium 143 136-145 MMOL/L Potassium 3.2 3.5-5.1 MMOL/L LOW Chloride 108 98-107 MMOL/L HI CO2 26.5 20.0-31.0 MMOL/L Glucose Serum 98 71-110 MG/DL Testing p erformed at [facility], [address] [place] [address] [place] [address]. CLIA ID#: [id number] BUN 7 7-21 MG/DL Creat .86 .51-1.17 MG/DL Z-hpwlkf-c-benzoquinon e imine (NAPQI) is a metabolite of [...] Serum,Calculated 294 280-300 MOSM/KG Lipid Panel Reflex DLDL 8006 1, 63339 Reviewed date:04/14/2025 04:04:08 PM Interpretation: Performing Lab: [...] is >400 mg/dl. See DLDL result. Troponin-I 69182 Reviewed date:04/14/2025 04:04:08 PM Interpretation: Performing Lab: Notes/Report: 3510 2nd trop plan admit 3510@1026 CLEAN Troponin-I 671 2-34 pg/mL CRIT called to 3WST . Radha Chambers RN. 03/30/2025 02:04:08 RBV/ CBC Ref[place] Man Diff 57638, 8 5585 Reviewed date:04/14/2025 04:04:08 PM Interpretation: Performing Lab: Notes/Report: 3510 2nd trop plan admit 3510@1026 CLEAN WBC 5.4 4.5-11.0 X10'3 RBC 3.56 4.00-5.20 X10'6 LOW Hgb 10.1 12.0-16.0 G/DL LOW Hct 32.1 36.0-46.0 % LOW MCV 90.2 80.0-100.0 FL MCH 28.4 27.0-31.0 PG MCHC 31.5 31.0-37.0 G/DL Platelet 214 150-400 X10'3 RDW-SD 44.3 35.0-49.0 FL RDW-CV 13.2 12.2-15.6 % MPV 9.9 9.2-12.0 FL Review Auto Diff Conf WBC Auto Diff--04580 Reviewed date:04/14/2025 04:04:08 PM Interpretation: Performing Lab: Notes/Report: Added by Discern Rules 2nd trop plan admit 3510@1026 CLEAN 3510 Neutro Auto% 43.6 40.0-70.0 % Lymph Auto% 45.4 22.0-44.0 % HI [place] Auto% 7.6 3.0-7.0 % HI Eos Auto% 2.6 2.0-4.0 % Baso Auto% 0.6 0.0-1.0 % NRBC% .00 .00-.20 /100 intact WBC's Neutro Abs 2.37 .80-7.70 Absolute Neutrophil Count 2370 NA Lymph Abs 2.46 .10-4.10 [place] Abs .41 .20-1.00 Eos Abs .14 .00-.40 Baso Abs .03 .00-.20 NRBC# .00 .00-.20 X10'3 Imm Gran Abs .01 .00-.10 Imm Gran% .2 .0-.4 % zzzHeart Cath Lt poss PTCA Reviewed date:04/14/2025 04:04:08 PM Interpretation: Performing Lab: Notes/Report: See Below For Report This report was dictated outside of the [employer] system. 2nd trop plan admit 3510@1026 CLEAN Read See Below For Report Troponin-I 58856 Reviewed date:04/14/2025 04:04:18 PM Interpretation: Performing Lab: Notes/Report: 3510 2nd trop plan admit 3510@1026 CLEAN Troponin-I 1668 2-34 pg/mL CRIT called to 3WST . Tamie Marquez RN. 03/28/2025 18:45:30 RBV/ Electrocardiogram (EKG) - 93 000 Reviewed date:05/13/2025 09:46:20 AM Interpretation: Performing Lab: Notes/Report: Tox Results Reviewed date:06/11/2025 10:07:22 AM Interpretation: Performing Lab: Notes/Report: Reason For Referral Reason eval and Treat Diagnosis 1 Chronic pain (G89.29 ) Referring Provider First Name Ling Referring Provider Last Name Genaro Referring Provider Speciality Nurse Dinesh chaudhari Referred Organization [facility] Referred Provider Berna Billings Referred Address [address] [place] [phone], Referred Provider Specialty Pain Medicin e General [...] 1 Urge incontinence (N 39.41) Referral Organization [facility] Referring Provider First Name Mini Referring Provider Last Name Gregorio Wiseman Referring Provider Speciality Pain Medic ine Referred Provider [facility] Referred Provider Specialty Physical The rapist Referral Priority Routine Medications Medication SIG (Take, Route, Frequency, Duration) Notes Start Date End Date Status Potassium Chloride ER 10 MEQ Tablet Extended Release 1 tablet with food Orally daily Active Magnesium 400 MG Tablet as directed Orally Active hydroCHLOROthiazide 12.5 MG Capsule 1 capsule in the morning Orally Once a day Active Fluticasone Propionate (Inhal) Active HYDROcodone-Acetaminophen 10-325 MG Tablet 1 tablet as needed Orally every 4-6 hrs; Duration: 30 days As needed Not to exceed 3 per day Fill on 08-18-2025 08/11/2025 09/17/2025 Active Clopidogrel Bisulfate 75 MG Tablet 1 tablet Orally Once a day Active busPIRone HCl 5 MG Tablet 1 tablet Orall y Twice a day Active Aspirin 81 MG Tablet Chewable 1 tablet Orally Once a day Active Zofran ODT PRN Active Amitriptyline HCl 150 MG Tablet 1 tablet at bedtime Orally Once a day Active Ventolin HFA 108 (90 Base) MCG/ACT Aerosol Solution 1 puff as needed Inhalation every 4 hrs Active Toprol XL 50 MG Tablet Extended Release 24 Hour 1 tablet Orally Once a day Active Protonix 40 MG Tablet Delayed Release 1 tablet 1/2 to 1 hour before morning meal Once a day Active Social History Tobacco Use: Social History Observation Description Date Details (start date - stop date) Former Smoker NA - NA Sex Assigned At : Social History Observation Description Sex Assigned At Female Social History Drugs/Alcohol: Social Info Question Answer [...] Status Risk Notes Problem Chronic pain syndrome (531901910) Chronic pain syndrome (G89.4) Active confirmed Problem Urge incontinence of urine (05165408) Urge incontinence (N39.41) Active confirmed Problem High risk drug monitoring status (055978040) 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) use of opiate analgesic (Z79.891) Active confirmed Problem Cervical spondylosis (259846770) Cervical spondylosis (M47.812) Active confirmed Problem Atherosclerotic heart disease of [place] coronary artery without angina pectoris (087099247539346) Arteriosclerosis of coronary artery (I25.10) Active confirmed Problem Chronic pain (80297237) Chronic pain (G89.29) Active confirmed Problem Acute non-ST segment elevation myocardial infarction (945521758) NSTEMI (non-ST elevated myocardial infarction) (I21.4) Active confirmed Problem Stented coronary artery (741207227) Stented coronary artery (Z95.5) Active confirmed Problem Pelvic floor dysfunction (640200284) Pelvic floor dysfunction (M62.89) Active confirmed Problem Lumbosacral spondylosis (270419916) Lumbosacral spondylosis (M47.817) Active confirmed Vital Signs Heart Rate 91 /min 07/10/2025 Height-cm 175.26 cm 07/15/2025 Oximetry 100 % 07/10/2025 Blood pressure diastolic 98 mm Hg 07/10/2025 Weight-kg 80.74 kg 07/15/2025 Height 69 in 07/15/2025 Blood pressure systolic 152 mm Hg 07/10/2025 Weight 178 lbs 07/15/2025 BMI 26.28 kg/m2 07/15/2025 Procedures Procedure Date Ordered Date Performed Result Body Sit e Coronary Angio with Left Heart Cath 05/08/2025 05/08/2025 N/A Encounters Encounter Location Date Provider Diagnosis [facility] [address] [address] 07/15/2025 Mini wolff Chronic pain syndrome G89.4 ; Cervical spondylosis M47.812 ; Lumbosacral spondylosis M47.817 ; Pelvic floor dysfunction M62.89 and 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) use of opiate analgesic Z79.[address] [address] 07/10/2025 Salazar Katie NSTEMI (non-ST eleva stella myocardial infarction) I21.4 ; Arteriosclerosis of coronary artery I25.10 and Stented coronary artery Z95.5 [facility] [place] [address] [place] [address] 06/03/2025 Mini wolff Chronic pain syndrome G89.4 ; Cervical spondylosis M47.812 ; Lumbosacral spondylosis M47.817 ; Pelvic floor dysfunction M62.89 and [facility] (current) use of opiate analgesic Z79.891 [facility] [address] [address] 05/12/2025 Mara Fink Arteriosclerosis of coronary artery I25.10 ; NSTEMI (non-ST elevated myocardial infarction) I21.4 ; Stented coronary artery Z95.5 and Current use of aspirin Z79.82 [facility] [address] [facility] [address] 08/11/2025 Mini PeteElle mariella Lumbosacral spondylosis M47.817 Assessments Encounter Date Diagnosis (ICD Code) Assessment Notes Treatment Notes Treatment Clinical Notes Section Notes 06/03/2025 Chronic pain syndrome (ICD-10 - G89.4) [...] pelvic floor physical therapy. It appears that [facility] might be the only place in [facility] that offers this for her. In the past, she has been on Marion 10 mg up to 3 tablets per [...] reevaluation. 06/03/2025 Cervical spondylosis (ICD-10 - M47.812) 07/15/2025 Chronic pain syndrome (ICD-10 - G89.4) She is a very pleasant patient with presumed cervical spondylosis and lumbosacral spondylosis. We will reprint her X-rays as she forgot how to obtain them. She has been stable on her current medication regimen, and I will continue her medications for the next 2 months. The PDMP was reviewed with no untoward events. Last UDS confirmation was consistent with prescribed medication at that time. The options for treatment were explained in detail, this included PT, medications, injections, lifestyle modifications and exercise. The patient presents to clinic for medication evaluation and management. The patient is stable on their current medication regimen and endorses adequate analgesia, increased ADLs, denies abuse and side effects. A bowel regimen was discussed with the patient. 08/11/2025 Lumbosacral spondylosis (ICD-10 - M47.817) 05/12/2025 Arteriosclerosis of coronary artery (ICD-10 - I25.10) EKG today shows a normal sinus rhythm ventricular rate 73 MO interval 174 QRS duration 98 QTc 445 05/12/2025 NSTEMI (non-ST elevated myocardial infarction) (ICD-10 - I21.4) 07/10/2025 NSTEMI (non-ST elevated myocardial infarction) (ICD-10 - I21.4) 05/12/2025 Stented coronary artery (ICD-10 - Z95.5) 07/10/2025 Arteriosclerosis of coronary artery (ICD-10 - I25.10) Her episodes of chest heaviness, sweating, and tachycardia appear to be related more to ongoing emotional stress. The patient is able to exert herself without overt anginal symptoms. In light of her depression, discontinuing beta blockers was discussed today, but the patient notes that it has been seeming to help her tachycardia and anxiety. Continue current dose of Toprol XL. Continue current dose of hydrochlorothiaz michael. 06/03/2025 Lumbosacral spondylosis (ICD-10 - M47.817) 07/15/2025 Cervical spondylosis (ICD-10 - M47.812) 06/03/2025 Pelvic floor dysfunction (ICD-10 - M62.89) 07/15/2025 Lumbosacral spondylosis (ICD-10 - M47.817) 05/12/2025 Current use of aspirin (ICD-10 - Z79.82) 07/10/2025 Stented coronary artery (ICD-10 - Z95.5) S/p PCI of the RCA in March 2025. Continue DAPT with aspirin and clopidogrel. 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 Mini carrillo. Mini Del Real, personally performed the services [...] to abide by our urine testing policy. 07/10/2025 Other Follow up in 6 months, or sooner if needed. Yin Del Real, am scribing for Salazar Wilson MD. Salazar Del Real MD, personally performed the services prescribed in this documentation, as scribed by Yin Gregorio, and it is both accurate and complete. 07/15/2025 Other Bradley Del Real am scribing for Dr. Mini carrillo. Mini Del Real, personally performed the services described in this documentation, as scribed by Bradley Ann, and it is both accurate and complete. Plan Of Treatment Pending Test Test Name Order Date Cervical Spine w/ Obl/Flex/Ext Comp-7205 2 06/03/2025 Lumbosacral Spine Comp w/ Bending-83171 06/03/2025 Electrocardiogram (EKG) - 10346 07/10/20 Next Appt Details Provider Name:Mini Gt Ellis, 09/09/2025 09:40:00 AM, [address] [place], [address], Provider Name:Salazar Wilson , 10/07/2025 01:15:00 PM, [address], [place], [address], Insurance Providers Payer Name Payer Address Payer Phone Subscriber Number Group Number Insured Name Patient Relationship to Insured Coverage Start Date Coverage End Date [employer] [address] [address] [place] [address] [id number] JosePrabhu tripp Self - patient is the insured [place] Medicaid [address] [place] [address] [id number] Prabhu Rivera Self - patient is the insured Medical [...]
--- NOTE | 2025-08-16 20:21 | ECG_ITS ---
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 Measurements Intervals [place] Rate: 73 P: 69 FL: 186 QRS: -6 QRSD: 104 T: 24 QT: 412 QTc: 454 Interpretive Statements SINUS RHYTHM LOW QRS VOLTAGE IN PRECORDIAL LEADS [QRS DEFLECTION < 1.0 mV IN CHEST LEADS] Compared to ECG 06/23/2025 18:28:16 Low QRS voltage now present Electronically Signed On 08-17-2025 17:26:56 RECRUITMENT INTERN by Jaren Garg M.D. [email or web address]
--- NOTE | 2025-08-16 20:25 | W.ED.ABDPA2 ---
HPI - Abdominal Pain General: Chief Complaint: Abdominal Pain Stated Complaint: n/v abd Time Seen by Provider: 08/16/25 19:39 History of Present Illness: Patient is a female with a history of fibromyalgia, CAD sp PCI, IBS-C, and kidney stones who presents with acute onset of severe abdominal pain described as a fire in the belly, associated with overheating, diaphoresis, and emotional lability. She reports recurrent episodes of these symptoms over the past several days, with the current episode beginning approximately 45 minutes to an hour prior to arrival. She has had issues with constipation over the last few months, has been taking laxatives, last bowel movement was yesterday morning, still passing gas. She denies vomiting but reports occasional nausea, and has not had a fever. She reports occasional urinary symptoms but no current dysuria, and a remote history of possible kidney infection that resolved spontaneously. She denies heart failure symptoms and has had prior laparoscopic surgery. Reports no heavy NSAID or alcohol usage. Associated Symptoms: Reports constipation Related Data Home Medications ?Medication ?Instructions ?Recorded ?Confirmed amitriptyline 150 mg tablet 150 mg PO BEDTIME 12/28/23 01/08/25 buspirone 5 mg tablet 5 mg PO TID 12/28/23 01/08/25 fluticasone propionate 50 1 spray intranasal DAILY PRN 12/28/23 01/08/25 mcg/actuation nasal allergies spray,suspension (Allergy Relief (fluticasone)) hydrochlorothiazide 50 mg tablet 50 mg PO DAILY 12/28/23 01/08/25 hydrocodone 5 mg-acetaminophen 325 1 - 2 tab PO .Q4-6H PRN pain 10/19/24 01/08/25 mg tablet omeprazole 20 mg tablet,delayed 20 mg PO DAILY 10/19/24 01/08/25 release potassium chloride 10 mEq 10 meq PO DAILY 10/19/24 01/08/25 tablet,extended release Previous Rx's ?Medication ?Instructions ?Recorded albuterol sulfate 90 mcg/actuation 1 - 2 puff inhalation Q6H PRN 02/27/23 aerosol inhaler (Ventolin HFA) shortness of breath or wheezing #8.5 grams ondansetron 4 mg disintegrating 4 mg PO Q6H PRN nausea and 10/19/24 tablet vomiting #14 tabs estradiol 10 mcg vaginal tablet 10 mcg vaginal DIRECTED #30 tabs 01/08/25 (Vagifem) Allergies Allergy/AdvReac Type Severity Reaction Status Date / Time duloxetine (From Cymbalta) Allergy Unknown Verified 01/08/25 11:25 morphine Allergy ADR-Nausea Verified 01/08/25 11:25 estradiol vaginal cream Allergy ADR-Itching Uncoded 01/08/25 11:25 Review of Systems General: Reports: 10 or more systems reviewed and unremarkable except in HPI and below Const: Reports: fatigue GI: Reports: abdominal pain and constipation : Reports: urinary hesitancy Psych: Reports: anxiety PFSH ED PFSH: Medical History (Updated 08/16/25 @ 21:43 by Justin Pratt DO) History of coronary artery disease Acute pharyngitis Surgical History History of coronary angioplasty with insertion of stent March 2025 [facility] Hx of colonoscopy History of esophagogastroduodenoscopy (EGD) Hx of section Hx of laparoscopy Hx of hysterectomy Family History Mother Hypertension Diabetes Brother Hypertension Sister Hypertension Denies family history of Colon cancer Ovarian cancer Prostate cancer Heart disease Hypercholesteremia Breast cancer Uterine cancer Thyroid disease Stroke Social History Smoking and tobacco/nicotine status: former use of tobacco/nicotine Physical Exam Narrative: EXAM NARRATIVE: Appears mildly anxious but overall well-appearing, afebrile, vital signs stable on arrival, no acute distress. Abdomen mildly distended but soft, no reproducible tenderness, bowel sounds decreased but present, no CVA tenderness, no localizing signs. Breathing comfortably on room air, no adventitious lung sounds. Normal sinus rhythm with no murmurs, no leg swelling, 2+ pulses throughout. Course Vital Signs: Vital signs: Vital Signs Temperature 97.7 F 08/16/25 19:55 Pulse Rate 77 08/16/25 21:53 Respiratory Rate 16 08/16/25 19:55 Blood Pressure 133/91 08/16/25 21:53 Pulse Oximetry 98 08/16/25 21:53 Oxygen Delivery Me thod Room Air 08/16/25 21:18 MDM - Abdominal Pain Medical Decision Making -ddx: GERD, gastritis, constipation, IBS, ileus, SBO, intra-abdominal abscess, pancreatitis, cholelithiasis, dehydration, electrolyte abnormality, anxiety - Patient with abrupt onset of symptoms, has had this intermittently over the past few days, seemingly improved mildly even after arrival to the ED, still has some nausea and subjective diffuse abdominal pain, has been having constipation, no reproducible tenderness on exam, with her recent [place], bowel issues, we will evaluate with cardiac and abdominal labs, get CT abdomen pelvis and start with fluids and Zofran, denying needing any pain medication at this time. -patient with reassuring labs for no systemic infectin or inflammation, no lactic elevation, no severe electrolyte abnl, no KEREN, CRP mildly elevated. has signficant anxiety with imaging and so with multiple attempts to get, and even after ativan still could not do it. in setting of reassuring labs, no focal ttp on exam and feeling improved on exam and toelrating PO without issue, this was deemed not needed at this time, states she gets flare ups like this with her IBS and anxiety and wouldnt have came because it felt like previous times but it concerned her and so with an otherwise reassuring ED rizzo she was able to be discharged in stable condition, advised to continue with miralax and redhyration for her constipation and to fu with PCP in a few days for reevulation, strict return precautions given. Lab Data 08/16/25 20:10 Labs/Radiology: Laboratory Results WBC 6.02 10^3/uL (3.29-11.43) 08/16/25 20:10 RBC 4.36 10^6/uL (3.85-5.65) 08/16/25 20:10 Hgb 12.60 g/dL (11.27-16.99) 08/16/25 20:10 Hct 38.1 % (36-47) 08/16/25 20:10 MCV 87.4 fl (85-98) 08/16/25 20:10 MCH 28.9 pg (27-33) 08/16/25 20:10 MCHC 33.1 g/dL (30-55) 08/16/25 20:10 RDW 12.7 % (12.1-15.1) 08/16/25 20:10 Plt Count 271 10^3/cmm (157-399) 08/16/25 20:10 MPV 9.2 fL (7.4-10.4) 08/16/25 20:10 Neut % (Auto) 50.3 % 08/16/25 20:10 Lymph % (Auto) 37.0 % 08/16/25 20:10 [place] % (Auto) 8.1 % 08/16/25 20:10 Eos % (Auto) 3.8 % 08/16/25 20:10 Baso % (Auto) 0.5 % 08/16/25 20:10 Neut # (Auto) 3.02 10^3/uL (1.8-7.7) 08/16/25 20:10 Lymph # (Auto) 2.2 10^3/uL (0.8-4.8) 08/16/25 20:10 [place] # (Auto) 0.5 10^3/uL (0.2-0.9) 08/16/25 20:10 Eos # (Auto) 0.2 10^3/uL (0.0-0.8) 08/16/25 20:10 Baso # (Auto) 0.0 10^3/uL (0.0-0.1) 08/16/25 20:10 Nucleated RBC % (auto) 0 % 08/16/25 20:10 Nucleated RBCs # 0.0 /100WBC 08/16/25 20:10 Lactic Acid 1.0 mmol/L (0.5-2.2) 08/16/25 20:10 Phosphorus 2.6 mg/dL (2.5-4.5) 08/16/25 20:10 Magnesium 2.1 mg/dL (1.7-2.3) 08/16/25 20:10 Troponin T Baseline < 6 ng/L (0-10) 08/16/25 20:10 C-React Prot High Sens 0.360 mg/dL (0.0-0.3) H 08/16/25 20:10 NT-Pro-B Natriuret Pep 70 pg/mL (0-125) 08/16/25 20:10 Lipase 40 U/L (13-60) 08/16/25 20:10 Urine Color Yellow (Yellow) 08/16/25 20:31 Urine Appearance Clear (CLEAR) 08/16/25 20: Urine pH 8.0 (5-7) A 08/16/25 20: Ur Specific [place] 1.009 (1.005-1.030) 08/16/25 20: Urine Protein Negative (Negative) 08/16/25 20: Urine Glucose (UA) Negative (Normal) 08/16/25 20: Urine Ketones Negative (Negative) 08/16/25 20: Urine Blood Negative (Negative) 08/16/25: Urine Nitrate Negative (Negative) 08/16/25: Urine Bilirubin Negative (Negative) 08/16/25 20: Urine Urobilinogen 0.2 mg/dL (Negative) 08/16/25 20: Ur Leukocyte Esterase Negative (Negative) 08/16/25 20: Urine RBC 0-2 /hpf (0-2) 08/16/25 20: Urine WBC 0-5 /hpf (0-5) 08/16/25 20: Ur Squamous Epith Cells 0-5 /hpf (0-5) 08/16/25: Amorphous Sediment Not Reportable 08/16/25: Urine Bacteria None seen /hpf (NONE) 08/16/25 20: Hyaline Casts 0-4 /lpf H 08/16/25 20: No radiology studies performed this visit Discharge Plan Discharge Patient Disposition: Home Clinical Impression: Abdominal pain, Constipation Condition: Stable Prescriptions: No Action albuterol sulfate [Ventolin HFA] 90 mcg/actuation HFA aerosol inhaler 1 - 2 puff inhalation Q6H PRN (Reason: shortness of breath or wheezing) Qty: 8.5 0RF amitriptyline 150 mg tablet 150 mg PO BEDTIME buspirone 5 mg tablet 5 mg PO TID fluticasone propionate [Allergy Relief (fluticasone)] 50 mcg/actuation spray,suspension 1 spray intranasal DAILY PRN (Reason: allergies) Rx Instructions: administer into each nostril hydrochlorothiazide 50 mg tablet 50 mg PO DAILY estradiol [Vagifem] 10 mcg tablet 10 mcg vaginal DIRECTED Qty: 30 3RF Rx Instructions: insert one tab intravaginally once nightly for 14 days; then transition to twice weekly potassium chloride 10 mEq Tablet Extended Release 10 meq PO DAILY omeprazole 20 mg Tablet,Delayed Release (Dr/Ec) 20 mg PO DAILY hydrocodone-acetaminophen 5-325 mg tablet 1 - 2 tab PO .Q4-6H MDD 6 tab PRN (Reason: pain) ondansetron 4 mg tablet,disintegrating 4 mg PO Q6H PRN (Reason: nausea and vomiting) Qty: 14 0RF Discharge Orders: Discharge ED (Routine); Ordered 08/16/25 Ordered By: Justin Pratt Referrals: Ling Lam, SENIOR PRODUCT DEVELOPMENT MANAGER [Primary Care Provider, Unknown] Discharge Diet: Advance as tolerated Discharge Activity: Increase activity as tolerated Patient Instructions: Abdominal Pain (ED), Opioid Safety, Pain Management, Patient Portal & [place] Instructions Activity Restrictions/Additional Instructions: You were seen for your abdominal pain, nausea, anxiety, you were evaluated with laboratory studies that were ultimately reassuring, you improved with fluids and medication and you are deemed stable to be discharged home. To help with your constipation, ensure you stay hydrated, continue taking MiraLAX and senna in the morning and at night to promote regular bowel movements. Follow-up with your primary care physician early next week for reevaluation of your symptoms. Return to the ED with severe worsening of the abdominal pain, fevers, vomiting, inability to urinate, any other emergent concerns. Print Language: Icelandic Coding Level of Care Code ED Bioengineer for Liana Argueta
[2025-08-16 20:27] LABS: Hematocrit 38.1 % (36-47); Hemoglobin 12.60 g/dL (11.27-16.99); Mean Corpuscular HGB Conc 33.1 g/dL (30-55); Mean Corpuscular Hemoglobin 28.9 pg (27-33); Mean Corpuscular Volume 87.4 fl (85-98); Nucleated Red Blood Cells % 0 %; Platelet Count 271 10^3/cmm (157-399); Red Blood Count 4.36 10^6/uL (3.85-5.65); White Blood Count 6.02 10^3/uL (3.29-11.43)
[2025-08-16 20:39] LABS: Troponin(5th) Baseline < 6 ng/L (0-10)
[2025-08-16] MEDS: ondansetron 2 mg/ML SDV 2 mL 4 MG IVP (20:39)
[2025-08-16 20:40] LABS: Lactic Sepsis W/Reflex 1.0 mmol/L (0.5-2.2)
[2025-08-16 20:46] LABS: Glucose Urine UA Negative (Normal); Nitrate Urine Negative (Negative); Specific Gravity, Urine 1.009 (1.005-1.030)
[2025-08-16 20:49] LABS: Lipase 40 U/L (13-60); Magnesium 2.1 mg/dL (1.7-2.3); NT Pro B Type Natriuretic Pept 70 pg/mL (0-125)
[2025-08-16 20:51] LABS: Add Urine Microscopic? YES
[2025-08-16 21:07] LABS: CRP High Sensitivity Cardiac 0.360 mg/dL (0.0-0.3)
[2025-08-16] MEDS: LORazepam 2 mg/mL INJ 1 mL 0.5 MG IVP (21:17)
[2025-08-16 21:18] VITALS: BP 133/82; PULSE 75; O2SAT 98
[2025-08-16 21:53] VITALS: BP 133/91; PULSE 77; O2SAT 98
== END 2025-08-16 21:55 | disposition home or self-care (01) ==
PROVIDERS: Emergency Provider Student in an Organized Health Care Education/Training Program; PCP Nurse Practitioner Family
DX: K59.00 Constipation, unspecified (principal); Z87.891 Personal history of nicotine dependence; I25.10 Atherosclerotic heart disease of native coronary artery without angina pectoris
CPT/HCPCS: 81001; 83605; 83690; 83735; 83880; 84100; 84484; 85025; 86141; 93005; 96361; 96374; 96375; 99285; J2060; J2405; J7030

== ENCOUNTER 2025-09-04 20:43 | Emergency (ER) | payer OTHER, MEDICARE, MEDICAID, SELFPAY ==
--- OUTSIDE RECORDS SUMMARY | 2025-06-26 08:00 | XMS_ITS ---
Author Organization [facility] Address [address] [facility] [place] [address] Care Team Providers Care Hod Carrier Name Role Phone Genaro BETANCURLing Bess Primary Care Provider Minerva Billings, Mini Unavailable [phone] Salazar Wilson Unavailable [phone] REASON FOR VISIT SPELLS HOT, SWEATING, FEELS HEAVY Social History Sex Assigned At : Social History Observation Description Sex Assigned At Female Encounters Encounter Location Date Provider Diagnosis [facility] [address] [place] [address], [place] [address] 06/26/2025 Salazar Wilsno Plan Of Treatment Next Appt Details Provider Name:Mini Del Real Julia Ellis, 09/09/2025 09:40:00 AM, [address] [place], [address], Provider Name:Salazar Wilson , 10/07/2025 01:15:00 PM, [address] [place] [address], [place], [address], Progress Notes * Johnna RIVERA CDOB: 0 (65 yo F)Acc No.[id number]:06/26/2025 Progress Notes Patient: Johnna Aguirre Provider: Ginger Wilson MD :1960 A ge:64 Y S ex:Female Date:06/26/2025 Address:[address] [place], [place] [phone] Pcp:Ling Lam APRN Subjective: * Chief Complaints: * SPELLS HOT, SWEATING, FEELS HEAVY Care Plan Details* * Electronic signature of Karime Wilson MD on 09/04/2025 at 08:47 PM CANDY PACKER Sign off status: Pending * Provider: Ginger Wilson MD Date: 1 Generated for Juany lovell/Seth/Annaitting on: 11/05/2024 08:47 PM CANDY PACKER
[2025-09-04 20:46] VITALS: BP 149/73; PULSE 83; RESP 16; TEMP 36.4; O2SAT 95; BMI 25.4
--- OUTSIDE RECORDS SUMMARY | 2025-09-04 20:47 | XMS_ITS | Patient Health Record ---
Author Organization [facility] Address [address] [place] [address] Care Team Providers Care Electrical Prospecting Supervisor Name Role Phone Genaro TERRAZZO JOURNEYMANLing Bess Primary Care Provider Mini Meraz Unavailable Katie Salazar Unavailable [phone] Mara Fink Unavailable [phone] Allergies Allergen (clinical drug ingredient) Drug/Non Drug Allergy documented on EMR Reaction Allergy Type Onset Date Status duloxetine Cymbalta Unknown Drug Allergy Active Substance with estrogen receptor agonist mechanism of action (substance) Estrogens Unknown Drug Allergy Active morphine Morphine Unknown Drug Allergy Active Pollen (e.g. tree, grass) Unknown Allergy Active Results Component Value Reference Range Flag Notes Tox Results Reviewed date:06/11/2025 10:07:22 AM Interpretation: Performing Lab: Notes/Report: Phosphorus (B) 60912 Reviewed date:04/14/2025 04:04:18 PM Interpretation: Performing Lab: Notes/Report: 2nd trop plan admit 3510@1026 CLEAN 3510 Phos 2.3 2.4-5.1 MG/DL LOW Magnesium (B) 41347 Reviewed date:04/14/2025 04:04:18 PM Interpretation: Performing Lab: Notes/Report: 2nd trop plan admit 3510@1026 CLEAN 3510 Magnesium 2.0 1.8-2.4 MG/DL Potassium (B) 04335 Reviewed date:04/14/2025 04:04:18 PM Interpretation: Performing Lab: Notes/Report: 2nd trop plan admit 3510@1026 CLEAN 3510 Potassium 3.3 3.5-5.1 MMOL/L LOW CBC Reflex Man Diff 38490, 8 0759 Reviewed date:04/14/2025 04:04:08 PM Interpretation: Performing Lab: [...] 9.4 9.2-12.0 FL Review Auto Diff Conf Schedule Confirmation Reviewed date:04/14/2025 04:04:08 PM Interpretation: Performing Lab: Notes/Report: Heart Cath Lt poss PTCA Partial Thromboplastin Time 43839 Reviewed date:04/14/2025 04:04:08 PM Interpretation: Performing Lab: Notes/Report: 2nd [facility] plan admit 3510@1026 CLEAN 3510 PTT 28.5 22.6-31.8 SEC Therapeutic Range: 60-100. Critical Value Starting at > 100. Prothrombin Time 49563 Reviewed date:04/14/2025 04:04:08 PM Interpretation: Performing Lab: Notes/Report: 2nd [facility] plan admit 3510@1026 CLEAN 3510 ProTime 10.4 9.1-11.9 SEC Normal Range : 9.1-11.9 INR .98 .90-1.20 Therapaeutic Range for heart valve replacement: 2.5-3.50 Therapeutic Range: 2.0-3.0 WBC Auto Diff--83350 Reviewed date:04/14/2025 04:04:08 PM Interpretation: Performing Lab: Notes/Report: Added by Discern Rules 2nd trop plan admit 3510@1026 CLEAN 3510 Neutro Auto% 56.3 40.0-70.0 % Lymph Auto% 33.9 22.0-44.0 % Roberts Auto% 7.3 3.0-7.0 % HI Eos Auto% 1.7 2.0-4.0 % LOW Baso Auto% 0.6 0.0-1.0 % NRBC% .00 .00-.20 /100 intact WBC's Neutro Abs 2.99 .80-7.70 Absolute Neutrophil Count 2990 NA Lymph Abs 1.80 .10-4.10 Roberts Abs .39 .20-1.00 Eos Abs .09 .00-.40 Baso Abs .03 .00-.20 NRBC# .00 .00-.20 X10'3 Imm Gran Abs .01 .00-.10 Imm Gran% .2 .0-.4 % Basic Metabolic Panel (BMP) 84094 Reviewed date:04/14/2025 04:04:08 PM Interpretation: Performing Lab: Notes/Report: 2nd trop plan admit 3510@1026 CLEAN 3510 Sodium 144 136-145 MMOL/L Potassium 3.2 3.5-5.1 MMOL/L LOW Chloride 108 98-107 MMOL/L HI CO2 28.5 20.0-31.0 MMOL/L Glucose Serum 112 71-110 MG/DL HI Testing p erformed at [facility], [address] [place] [address] [place] [address]. CLIA ID#: [id number] BUN 8 7-21 MG/DL Creat .80 .51-1.17 MG/DL P-axguts-l-benzoquinon e imine (NAPQI) is a metabolite of [...] 8.7-10.4 MG/DL Osmo Serum,Calculated 297 280-300 MOSM/KG Urine Confirmation Panel (in strument) - 45965 Reviewed date:06/11/2025 10:07:22 AM Interpretation: Performing Lab: [...] by the U.S. Food and Drug Administration. Basic Metabolic Panel (BMP) 84131 Reviewed date:04/14/2025 04:04:08 PM Interpretation: Performing Lab: Notes/Report: 2nd trop plan admit 3510@1026 CLEAN 3510 Sodium 143 136-145 MMOL/L Potassium 3.2 3.5-5.1 MMOL/L LOW Chloride 108 98-107 MMOL/L HI CO2 26.5 20.0-31.0 MMOL/L Glucose Serum 98 71-110 MG/DL Testing p erformed at [facility], [address] [place] [address] Dr. Wendy [place], [place] [address]. CLIA ID#: [id number] BUN 7 7-21 MG/DL Creat .86 .51-1.17 MG/DL Use of this assay is not recommended for patients undergoing treatment with phenindione, due to the potential for falsely depressed results. O-mqdbqw-y-benzoquinon e imine (NAPQI) is a metabolite of acetaminophen, NAPQI concentrations of apparoximately 10 mg/L correlation to toxic levels of acetaminophen demonstrates a greater than or equil to 10% change in results. NAPQI concentrations greater than this may lead to falsely depressed results for patient samples. GFR 74.7 NA Calculation pe rformed from [...] MG/DL LOW Osmo Serum,Calculated 294 280-300 MOSM/KG [place] 77547, 8 5007 Reviewed date:04/14/2025 04:04:08 PM Interpretation: [...] 9.9 9.2-12.0 FL Review Auto Diff Conf Urine Drug Screen (cup read) - 98247 Reviewed date:06/03/2025 04:26:29 PM Interpretation: Performing Lab: Notes/Report: OPI + Troponin-I 38887 Reviewed date:04/14/2025 04:04:08 PM Interpretation: Performing Lab: Notes/Report: 2nd trop plan admit 3510@1026 CLEAN 3510 Troponin-I 671 2-34 pg/mL CRIT called to [facility] . Radha Chambers RN. 03/30/2025 02:04:08 RBV/ Echo Complete [id number] Reviewed date:04/14/2025 04:04:18 PM Interpretation: Performing Lab: Notes/Report: [id number]=iSite WBC Auto Diff--72280 Reviewed date:04/14/2025 04:04:08 PM Interpretation: Performing Lab: Notes/Report: Added by Discern Rules 2nd trop plan admit 3510@1026 CLEAN 3510 Neutro Auto% 43.6 40.0-70.0 % Lymph Auto% 45.4 22.0-44.0 % HI Roberts Auto% 7.6 3.0-7.0 % HI Eos Auto% 2.6 2.0-4.0 % Baso Auto% 0.6 0.0-1.0 % NRBC% .00 .00-.20 /100 intact WBC's Neutro Abs 2.37 .80-7.70 Absolute Neutrophil Count 2370 NA Lymph Abs 2.46 .10-4.10 Roberts Abs .41 .20-1.00 Eos Abs .14 .00-.40 Baso Abs .03 .00-.20 NRBC# .00 .00-.20 X10'3 Imm Gran Abs .01 .00-.10 Imm Gran% .2 .0-.4 % Lipid Panel Reflex DLDL 8006 1, 64112 Reviewed date:04/14/2025 04:04:08 PM Interpretation: Performing Lab: Notes/Report: 2nd trop plan admit 3510@1026 CLEAN 3510 Trig 125 NA Classification Guidelines:Triglyceride s Very high >=500 10-14 yr 37-131 Borderline High 150-199 10-14 yr 32-125 Desirable <150 5-9 yr 32-105 5-9 yr 30-101 Children: Female 15-19 yr 37-148 15-19 yr 39-132 High 200-499 0-4 yr 22-99 0-4 yr 34-112 Children: Male Adults: >20yrs Chol 148 <=200 MG/DL HDL 46 39-96 MG/DL Female: Male: Reference Ranges:HDL 10-14y 37-74 >=20y 40-59 15-19y 35-74 10-14y 37-70 5-9y 38-75 >=20y 40-59 15-19y 30-63 5-9y 36-73 CH/HDL 3.2 0.0-4.9 RATIO LDL 77 0-130 MG/DL LDL result is inaccurate , if Trig is >400 mg/dl. See DLDL result. Schedule Confirmation Reviewed date:04/14/2025 04:04:08 PM Interpretation: Performing Lab: Notes/Report: Heart Cath Lt poss PTCA Electrocardiogram (EKG) - 93 000 Reviewed date:05/13/2025 09:46:20 AM Interpretation: Performing Lab: Notes/Report: Echo Complete [id number] Reviewed date:04/14/2025 04:04:08 PM Interpretation: Performing Lab: Notes/Report: Cardiopulmonary Services Name: OLLHOFF, PRABHU Study Date: 03/29/2025 : 1960 [facility]:[id number] Patient Location: [facility] Age: 64 yrs Gender: [...] date:04/14/2025 04:04:08 PM Interpretation: Performing Lab: Notes/Report: [id number]&org=Nissa Princert Cath Lt poss PTCA Reviewed date:04/14/2025 04:04:08 PM Interpretation: Performing Lab: Notes/Report: See Below For Report This report was dictated outside of the [employer] system. 2nd trop plan admit 3510@1026 CLEAN Read See Below For Report Troponin-I 90345 Reviewed date:04/14/2025 04:04:18 PM Interpretation: Performing Lab: Notes/Report: 2nd trop plan admit 3510@1026 CLEAN 3510 Troponin-I 1668 2-34 pg/mL CRIT called to 3WSSkyler Marquez RN. 03/28/2025 18:45:30 RBV/MD Reason For Referral Reason eval and Treat Diagnosis 1 Chronic pain (G89.29 ) Referring Provider First Name Ling Referring Provider Last Name Genaro Referring Provider Speciality Nurse Dinesh chaudhari Referred Organization [facility] Referred Provider Berna Billings Referred Address [address] [place] [phone], Referred Provider Specialty Pain Medicin e General Notes Uzma Shipley 12:52:23 PM CDT > atc pt, lvmQuinten Twyla A 06/12/2025 10:54:14 AM CDT > atc pt, lvmQuinten Twyla A 06/16/2025 12:01:19 PM CDT > this is an establish pt Clinical Notes Elvis Gibbs 05/2025 01:38:54 PM >wants mailed Referral Priority Routine Reason Referral Pelvic floo r therapy Diagnosis 1 Urge incontinence (N 39.41) Referral Organization [facility] Referring Provider First Name Mini Referring Provider Last Name Gregorio Wiseman Referring Provider Speciality Pain Medic ine Referred Provider [facility] Referred Provider Specialty Physical The rapist Referral [...] Status Risk Notes Problem Chronic pain syndrome (379707074) Chronic pain syndrome (G89.4) Active confirmed Problem Urge incontinence of urine (89312536) Urge incontinence (N39.41) Active confirmed Problem High risk drug monitoring status (091776259) 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) use of opiate analgesic (Z79.891) Active confirmed Problem Cervical spondylosis (821924074) Cervical spondylosis (M47.812) Active confirmed Problem Atherosclerotic heart disease of [place] coronary artery without angina pectoris (361303045233308) Arteriosclerosis of coronary artery (I25.10) Active confirmed Problem Chronic pain (55854331) Chronic pain (G89.29) Active confirmed Problem Acute non-ST segment elevation myocardial infarction (389273294) NSTEMI (non-ST elevated myocardial infarction) (I21.4) Active confirmed Problem Stented coronary artery (228708256) Stented coronary artery (Z95.5) Active confirmed Problem Pelvic floor dysfunction (860096114) Pelvic floor dysfunction (M62.89) Active confirmed Problem Lumbosacral spondylosis (706810728) Lumbosacral spondylosis (M47.817) Active confirmed Vital Signs [...] N/A Encounters Encounter Location Date Provider Diagnosis [facility] [address] [address] 07/15/2025 Mini wolff Chronic pain syndrome G89.4 ; Cervical spondylosis M47.812 ; Lumbosacral spondylosis M47.817 ; Pelvic floor dysfunction M62.89 and 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) use of opiate analgesic Z79.[address] [address] 07/10/2025 Salazar Katie NSTEMI (non-ST eleva stella myocardial infarction) I21.4 ; Arteriosclerosis of coronary artery I25.10 and Stented coronary artery Z95.5 [facility] [place] [address] [place] [address] 06/03/2025 Mini wolff Chronic pain syndrome G89.4 ; Cervical spondylosis M47.812 ; Lumbosacral spondylosis M47.817 ; Pelvic floor dysfunction M62.89 and [facility] (current) use of opiate analgesic Z79.891 [facility] [address] [address] 05/12/2025 Mara Fink Arteriosclerosis of coronary artery I25.10 ; NSTEMI (non-ST elevated myocardial infarction) I21.4 ; Stented coronary artery Z95.5 and Current use of aspirin Z79.82 [facility] [address] [place] [address] 08/11/2025 Mini PeteElle wolff Lumbosacral spondylosis M47.817 Assessments Encounter Date Diagnosis (ICD Code) Assessment Notes Treatment Notes Treatment Clinical Notes Section Notes 05/12/2025 Arteriosclerosis of coronary artery (ICD-10 - I25.10) EKG today shows a normal sinus rhythm ventricular rate 73 [place] interval 174 QRS duration 98 QTc 445 [...] pelvic floor physical therapy. It appears that [facility] might be the only place in [facility] that offers this for her. In the past, she has been on [place] 10 mg up to 3 tablets per [...] reevaluation. 06/03/2025 Cervical spondylosis (ICD-10 - M47.812) 07/10/2025 NSTEMI (non-ST elevated myocardial infarction) (ICD-10 - I21.4) 07/15/2025 Chronic pain syndrome (ICD-10 - G89.4) [...] patient. 08/11/2025 Lumbosacral spondylosis (ICD-10 - M47.817) 07/15/2025 Cervical spondylosis (ICD-10 - M47.812) 06/03/2025 Lumbosacral spondylosis (ICD-10 - M47.817) 07/10/2025 Arteriosclerosis of coronary artery (ICD-10 - [...] XL. Continue current dose of hydrochlorothiaz michael. 05/12/2025 Stented coronary artery (ICD-10 - Z95.5) 05/12/2025 Current use of aspirin (ICD-10 - Z79.82) 06/03/2025 Pelvic floor dysfunction (ICD-10 - M62.89) 07/10/2025 Stented coronary artery (ICD-10 - Z95.5) S/p PCI of the RCA in March 2025. Continue DAPT with aspirin and clopidogrel. 07/15/2025 Lumbosacral spondylosis (ICD-10 - M47.817) 07/15/2025 Pelvic floor dysfunction (ICD-10 - M62.89) 06/03/2025 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) use of opiate analgesic (ICD-10 - Z79.891) 07/15/2025 long term acute care registered nurse [...] Comp-7205 2 06/03/2025 Lumbosacral Spine Comp w/ Bending-99346 06/03/2025 Electrocardiogram (EKG) - 31453 07/10/20 Next Appt Details Provider Name:Mini Gt Ellis, 09/09/2025 09:40:00 AM, [address] [place], [address], Provider Name:Salazar Wilson , 10/07/2025 01:15:00 PM, [address], [place], [address], Insurance Providers Payer Name Payer Address Payer Phone Subscriber Number Group Number Insured Name Patient Relationship to Insured Coverage Start Date Coverage End Date [employer] [address] [address] [place] [address] [id number] JosePrabhu tripp Self - patient is the insured [place] Medicaid [address] [place] [address] [id number] Prabhu Strange Self - patient is the insured Medical (General) History Medical History History ICD Code Arthritis Fibromyalgia Reynaulds disease High blood pressure Peptic ulcer disease Hx of mini stroke Hx of heart attack Hx of 2 stents Measles/mumps/rubella bronchitis/emphysema Stomach Ulcer migraine headaches constipation kidney infection kidney stones Bleeding Disorder/blood thinners Surgical History Surgery Date(Month/Year) Lumbar nerve burning section . 1. Radial left heart cathete rization with coronary angiography and ventriculography. 2. Percutaneous transluminal coronary angioplasty drug-eluting stent x2, right coronary artery. 7.5.25 Hysterectomy (uterus only) 1996 laproscopic Endometriosis treatment Hospitalization History Reason Date(Month/Year) ED- Nausea, Vomiting 03/28-03/30/2025
[2025-09-04 22:01] LABS: Hematocrit 39.6 % (36-47); Hemoglobin 12.90 g/dL (11.27-16.99); Mean Corpuscular HGB Conc 32.6 g/dL (30-55); Mean Corpuscular Hemoglobin 28.7 pg (27-33); Mean Corpuscular Volume 88.2 fl (85-98); Nucleated Red Blood Cells % 0 %; Platelet Count 355 10^3/cmm (157-399); Red Blood Count 4.49 10^6/uL (3.85-5.65); White Blood Count 10.16 10^3/uL (3.29-11.43)
[2025-09-04 22:17] LABS: Alanine Aminotransferase 11 U/L (0-33); Albumin Level 4.8 g/dL (3.5-5.2); Alkaline Phosphatase 93 U/L (35-105); Anion Gap 20.5 (5-19); Aspartate Amino Transferase 20 U/L (0-32); Blood Urea Nitrogen 14 mg/dL (8-23); Calcium 10.4 mg/dL (8.5-10.5); Carbon Dioxide 27 mmol/L (22-29); Chloride 94 mmol/L (98-107); Globulin 3.3 g/dL (1.3-4.6); Glucose 131 mg/dL (65-115); Osmolality Calculated 290 mOsm/kg (285-295); Sodium 139 mmol/L (136-145); Total Protein 8.1 g/dL (6.6-8.7)
[2025-09-04 22:19] LABS: Potassium 2.5 mmol/L (3.5-5.1)
[2025-09-04 22:20] VITALS: BP 155/104; PULSE 71; O2SAT 97
[2025-09-04 22:30] VITALS: PULSE 77; O2SAT 97
[2025-09-04 22:50] LABS: Glucose Urine UA Negative (Normal); Nitrate Urine Negative (Negative); Specific Gravity, Urine 1.017 (1.005-1.030)
[2025-09-04 22:55] LABS: Add Urine Microscopic? YES
[2025-09-04 23:18] LABS: Magnesium 2.0 mg/dL (1.7-2.3)
[2025-09-04 23:33] VITALS: BP 149/101; PULSE 83; O2SAT 95
--- NOTE | 2025-09-04 23:34 | XRR_ITS ---
PROCEDURE INFORMATION: Exam: XR Abdomen Exam date and time: 09/04/2025 11:45 PM Age: 65 years old Clinical indication: Abdominal pain; Additional info: Abd pain TECHNIQUE: Imaging protocol: Radiologic exam of the abdomen. Views: 2 Views. Upright and supine views. COMPARISON: CR XR abdomen 1V* [id number] 06/23/2025 6:28 PM FINDINGS: Gastrointestinal tract: Normal. No bowel dilation. Intraperitoneal space: Normal. No free air. Bones/joints: Unremarkable for age. XR/XR abdomen min 2V 58339 IMPRESSION: No acute findings.
--- NOTE | 2025-09-04 23:35 | W.ED.ABDPA2 ---
HPI - Abdominal Pain General: Chief Complaint: Abdominal Pain Stated Complaint: LLQ Pain Time Seen by Provider: 09/04/25 22:42 History of Present Illness: Patient states 5-year-old female history of hypertension, presents to the emergency room due to pain in her right lateral mid quadrant. She did have some constipation recently. She did take a laxative. This pain was ongoing waxing and waning today, and worsening today. She had some nausea without emesis. No fevers. No sick contact. No chest discomfort. Potassium was 2.6 initially. Laboratory data does not show any pyuria Associated Symptoms: Reports change in bowel habits, constipation, GI cramping and nausea; Denies vomiting Related Data Home Medications ?Medication ?Instructions ?Recorded ?Confirmed amitriptyline 150 mg tablet 150 mg PO BEDTIME 12/28/23 01/08/25 buspirone 5 mg tablet 5 mg PO TID 12/28/23 01/08/25 fluticasone propionate 50 1 spray intranasal DAILY PRN 12/28/23 01/08/25 mcg/actuation nasal allergies spray,suspension (Allergy Relief (fluticasone)) hydrochlorothiazide 50 mg tablet 50 mg PO DAILY 12/28/23 01/08/25 hydrocodone 5 mg-acetaminophen 325 1 - 2 tab PO .Q4-6H PRN pain 10/19/24 01/08/25 mg tablet omeprazole 20 mg tablet,delayed 20 mg PO DAILY 10/19/24 01/08/25 release potassium chloride 10 mEq 10 meq PO DAILY 10/19/24 01/08/25 tablet,extended release Previous Rx's ?Medication ?Instructions ?Recorded albuterol sulfate 90 mcg/actuation 1 - 2 puff inhalation Q6H PRN 02/27/23 aerosol inhaler (Ventolin HFA) shortness of breath or wheezing #8.5 grams ondansetron 4 mg disintegrating 4 mg PO Q6H PRN nausea and 10/19/24 tablet vomiting #14 tabs estradiol 10 mcg vaginal tablet 10 mcg vaginal DIRECTED #30 tabs 01/08/25 (Vagifem) triamterene 75 1 tab PO QAM #90 tabs 09/04/25 mg-hydrochlorothiazide 50 mg tablet Allergies Allergy/AdvReac Type Severity Reaction Status Date / Time duloxetine (From Cymbalta) Allergy Unknown Verified 09/04/25 20:52 morphine Allergy ADR-Nausea Verified 09/04/25 20:52 estradiol vaginal cream Allergy ADR-Itching Uncoded 01/08/25 11:25 Review of Systems General: Reports: 10 or more systems reviewed and unremarkable except in HPI and below Const: Reports: fatigue ENMT: Denies: throat pain or mouth pain Card: Denies: chest pain or palpitations Resp: Denies: dyspnea or non-productive cough GI: Reports: abdominal pain, nausea, constipation, GI cramping and change in bowel habits; Denies: vomiting : Reports: urinary hesitancy Musc: Denies: neck pain or back pain Neuro: Denies: headache(s) or numbness in extremities Psych: Reports: anxiety PFSH ED PFSH: Medical History (Updated 09/05/25 @ 00:11 by WERNER Alexander) History of coronary artery disease Acute pharyngitis Surgical History History of coronary angioplasty with insertion of stent March 2025 [facility] Hx of colonoscopy History of esophagogastroduodenoscopy (EGD) Hx of section Hx of laparoscopy Hx of hysterectomy Family History Mother Hypertension Diabetes Brother Hypertension Sister Hypertension Denies family history of Colon cancer Ovarian cancer Prostate cancer Heart disease Hypercholesteremia Breast cancer Uterine cancer Thyroid disease Stroke Social History Smoking and tobacco/nicotine status: former use of tobacco/nicotine Physical Exam Const: GENERAL APPEARANCE: cooperative ORIENTATION/CONSCIOUSNESS: Yes awake, Yes oriented to person, Yes oriented to place and Yes oriented to time HENMT: COMMON NORMALS: normocephalic, atraumatic and hearing grossly normal bilaterally HEAD & SCALP: normocephalic and atraumatic Resp: COMMON NORMALS: normal respiratory effort, No retractions, No use of accessory muscles and clear to auscultation bilaterally AUSCULTATION: clear to auscultation bilaterally Cardio: COMMON NORMALS: regular rate, regular rhythm and No murmurs present (Cardio) RATE: regular rate RHYTHM: regular rhythm GI: COMMON NORMALS: Soft to palpation and No hepatosplenomegaly present AUSCULTATION: Yes normoactive bowel sounds PALPATION: Yes Soft to palpation, No Tenderness to palpation present (GI) (Right mid lateral), No Guarding due to palpation present (GI) and Yes No hepatosplenomegaly present Extremity: COMMON NORMALS: normal to inspection, capillary refill normal, no clubbing, cyanosis or edema, no calf tenderness and no pedal edema Neuro: SENSORIUM/ORIENTATION: Yes oriented to person, Yes oriented to place and Yes oriented to time Skin: COMMON NORMALS: no rashes or lesions noted GENERAL SKIN EXAM: no rashes or lesions noted Course Vital Signs: Vital signs: Vital Signs Temperature 97.6 F 09/04/25 20:46 Pulse Rate 89 09/05/25 00:50 Respiratory Rate 16 09/04/25 20:46 Blood Pressure 160/88 09/05/25 00:50 Pulse Oximetry 93 09/05/25 00:50 Oxygen Delivery Me thod Room Air 09/04/25 22:30 MDM - Abdominal Pain Medical Decision Making Patient is a 65-year-old female that presented to the ED with right middle quadrant abdominal pain. She did not have any leukocytosis, she had low potassium of 2.5, which was replaced with 40 mill equivalents of potassium on 2 occasions. She is on hydrochlorothiazide 50 mg, that was changed to triamterene/hydrochlorothiazide, since triamterene is potassium sparing. She will continue her home potassium twice daily, call in the morning for follow-up labs on Monday. All of her questions answered to satisfaction. Lab Data 09/04/25 21:04 09/04/25 21:04 Labs/Radiology: Radiology Impressions Abdomen X-Ray 09/04/25 23:34 IMPRESSION: No acute findings. Laboratory Results WBC 10.16 10^3/uL (3.29-11.43) 09/04/25 21:04 RBC 4.49 10^6/uL (3.85-5.65) 09/04/25 21:04 Hgb 12.90 g/dL (11.27-16.99) 09/04/25 21:04 Hct 39.6 % (36-47) 09/04/25 21:04 MCV 88.2 fl (85-98) 09/04/25 21:04 MCH 28.7 pg (27-33) 09/04/25 21:04 MCHC 32.6 g/dL (30-55) 09/04/25 21:04 RDW 12.8 % (12.1-15.1) 09/04/25 21:04 Plt Count 355 10^3/cmm (157-399) 09/04/25 21:04 MPV 9.6 fL (7.4-10.4) 09/04/25 21:04 Neut % (Auto) 75.6 % 09/04/25 21:04 Lymph % (Auto) 17.0 % 09/04/25 21:04 [place] % (Auto) 4.8 % 09/04/25 21:04 Eos % (Auto) 1.8 % 09/04/25 21:04 Baso % (Auto) 0.5 % 09/04/25 21:04 Neut # (Auto) 7.68 10^3/uL (1.8-7.7) 09/04/25 21:04 Lymph # (Auto) 1.7 10^3/uL (0.8-4.8) 09/04/25 21:04 [place] # (Auto) 0.5 10^3/uL (0.2-0.9) 09/04/25 21:04 Eos # (Auto) 0.2 10^3/uL (0.0-0.8) 09/04/25 21:04 Baso # (Auto) 0.1 10^3/uL (0.0-0.1) 09/04/25 21:04 Nucleated RBC % (auto) 0 % 09/04/25 21:04 Nucleated RBCs # 0.0 /100WBC 09/04/25 21:04 Sodium 139 mmol/L (136-145) 09/04/25 21:04 Potassium 2.5 mmol/L (3.5-5.1) L* 09/04/25 21:04 Chloride 94 mmol/L (98-107) L 09/04/25 21:04 Carbon Dioxide 27 mmol/L (22-29) 09/04/25 21:04 Anion Gap 20.5 (5-19) H 09/04/25 21:04 BUN 14 mg/dL (8-23) 09/04/25 21:04 Creatinine 0.8 mg/dL (0.5-0.9) 09/04/25 21:04 GFR Calculation 72.0 mL/min (90-130) L 09/04/25 21:04 Glucose 131 mg/dL (65-115) H 09/04/25 21:04 Calculated Osmolality 290 mOsm/kg (285-295) 09/04/25 21:04 Calcium 10.4 mg/dL (8.5-10.5) 09/04/25 21:04 Magnesium 2.0 mg/dL (1.7-2.3) 09/04/25 21:04 Total Bilirubin 0.4 mg/dL (0.15-1.2) 09/04/25 21:04 AST 20 U/L (0-32) 09/04/25 21:04 ALT 11 U/L (0-33) 09/04/25 21:04 Alkaline Phosphatase 93 U/L (35-105) 09/04/25 21:04 Total Protein 8.1 g/dL (6.6-8.7) 09/04/25 21:04 Albumin 4.8 g/dL (3.5-5.2) 09/04/25 21:04 Globulin 3.3 g/dL (1.3-4.6) 09/04/25 21:04 Urine Color Yellow (Yellow) 09/04/25 22:32 Urine Appearance Clear (CLEAR) 09/04/25 22:32 Urine pH 6.0 (5-7) 09/04/25 22:32 Ur Specific [place] 1.017 (1.005-1.030) 09/04/25 22:32 Urine Protein Negative (Negative) 09/04/25 22: Urine Glucose (UA) Negative (Normal) 09/04/25 22:32 Urine Ketones 1+ (Negative) H 09/04/25 22:32 Urine Blood Negative (Negative) 09/04/25 22: Urine Nitrate Negative (Negative) 09/04/25 22: Urine Bilirubin Negative (Negative) 09/04/25 22: Urine Urobilinogen 0.2 mg/dL (Negative) 09/04/25 22:32 Ur Leukocyte Esterase Negative (Negative) 09/04/25 22:32 Urine RBC 0-2 /hpf (0-2) 09/04/25 22:32 Urine WBC 0-5 /hpf (0-5) 09/04/25 22:32 Ur Squamous Epith Cells 0-5 /hpf (0-5) 09/04/25 22:32 Amorphous Sediment Not Reportable 09/04/25 22:32 Urine Bacteria None seen /hpf (NONE) 09/04/25 22:32 Hyaline Casts 0-4 /lpf H 09/04/25 22:32 All radiology interpretation(s) finalized by discharge Discharge Plan Discharge Patient Disposition: Home Clinical Impression: Hypokalemia Abdominal pain Qualifiers: Abdominal location: unspecified location Qualified Code(s): R10.9 - Unspecified abdominal pain Condition: Stable Prescriptions: New triamterene-hydrochlorothiazid 75-50 mg tablet 1 tab PO QAM Qty: 90 0RF No Action albuterol sulfate [Ventolin HFA] 90 mcg/actuation HFA aerosol inhaler 1 - 2 puff inhalation Q6H PRN (Reason: shortness of breath or wheezing) Qty: 8.5 0RF amitriptyline 150 mg tablet 150 mg PO BEDTIME buspirone 5 mg tablet 5 mg PO TID fluticasone propionate [Allergy Relief (fluticasone)] 50 mcg/actuation spray,suspension 1 spray intranasal DAILY PRN (Reason: allergies) Rx Instructions: administer into each nostril hydrochlorothiazide 50 mg tablet 50 mg PO DAILY estradiol [Vagifem] 10 mcg tablet 10 mcg vaginal DIRECTED Qty: 30 3RF Rx Instructions: insert one tab intravaginally once nightly for 14 days; then transition to twice weekly potassium chloride 10 mEq Tablet Extended Release 10 meq PO DAILY omeprazole 20 mg Tablet,Delayed Release (Dr/Ec) 20 mg PO DAILY hydrocodone-acetaminophen 5-325 mg tablet 1 - 2 tab PO .Q4-6H MDD 6 tab PRN (Reason: pain) ondansetron 4 mg tablet,disintegrating 4 mg PO Q6H PRN (Reason: nausea and vomiting) Qty: 14 0RF Discharge Orders: Discharge ED (Routine); Ordered 09/05/25 Ordered By: Erin Quick Referrals: Ling Lam NP [Primary Care Provider, Unknown] Discharge Diet: Clear Liquid Discharge Activity: Resume usual activity Patient Instructions: Abdominal Pain (ED), Patient Portal & [place] Instructions Activity Restrictions/Additional Instructions: - Call your doctor tomorrow, to repeat your labs on Monday - Stop your hydrochlorothiazide. - At the pharmacy: Triamterene/hydrochlorothiazide. Triamterene portion is potassium sparing which sometimes helps with the amount of potassium you have taken today. Continue your potassium at home until your repeat blood work Thank you for choosing [facility] for your healthcare needs today. You have been screened and evaluated and felt safe for discharge. Health conditions do change or evolve sometimes and as such it is important that you follow up with your Primary Doctor to be re checked, 3-5 days is a general good time frame for follow up. You are always welcome to return to the ED for re assessment if your symptoms are worsening or you have new concerns Print Language: Danish Coding Level of Care Code ED Track Layer Head for Liana Argueta
[2025-09-05] VITALS: BP 142/95; PULSE 81; O2SAT 99
[2025-09-05 00:30] VITALS: BP 160/88; PULSE 90; O2SAT 92
[2025-09-05 00:50] VITALS: BP 160/88; PULSE 89; O2SAT 93
== END 2025-09-05 00:51 | disposition home or self-care (01) ==
PROVIDERS: Emergency Medicine; Emergency Provider Physician Assistant; PCP Nurse Practitioner Family
DX: E87.6 Hypokalemia (principal); R10.9 Unspecified abdominal pain; Z87.891 Personal history of nicotine dependence; I25.10 Atherosclerotic heart disease of native coronary artery without angina pectoris
CPT/HCPCS: 74019; 80053; 81001; 83735; 85025; 99284; J7120; J9999

== ENCOUNTER 2025-09-15 10:59 | Outpatient (CLI) | payer OTHER, MEDICARE, MEDICAID, SELFPAY ==
--- NOTE | 2025-09-15 11:09 | XR_ITS ---
WS: [id number] Cervical spine, 7 views including both obliques in lateral views in flexion, extension and neutral position, 09/15/2025 Clinical Data: CERVIAL SPONDYLOSIS Comparison: Cervical spine, 12/12/2019 Findings: No compression fractures are seen. There is degenerative disc narrowing at C4-C5, C5-C6 and C6-C7 with accompanying osteophytes. On the oblique views there is foraminal encroachment on the right at C4-C5, C5-C6 and C6-C7 and on the left at C6-C7. No instability occurs on flexion or extension. There is no prevertebral soft tissue swelling. The odontoid is unremarkable. The soft tissues of the neck and the lung apices are normal. XR/XR cervical spine min 6V [id number] Impression: 1. Multilevel degenerative disc narrowing with osteoarthritis. 2. Multilevel foraminal encroachment. 3. No instability on flexion or extension.
--- NOTE | 2025-09-15 11:09 | XR_ITS ---
WS: [id number] Lumbar spine, 6 views including both obliques and lateral views in flexion, extension and neutral position, 09/15/2025 Clinical Data: LUMBOSACRAL SPONDYLOSIS Comparison: Lumbar spine, 01/14/2019 Findings: No compression fractures or subluxation is seen. There is degenerative disc narrowing from L2-L3 through L4-L5. The transverse processes and SI joints are normal. The oblique images show no spondylolysis. There is osteoarthritis of the lumbar vertebral bodies L2-L5. There is facet joint arthritis at L4-L5 and L5-S1. On flexion there is anterior instability of 1 cm of L4 on L5. This instability reduces on extension XR/XR lumbar spine 6V w f/e [id number] Impression: 1. Multilevel degenerative disc narrowing and osteoarthritis. 2. Multilevel facet joint arthritis. 3. Anterior instability of 1 cm of L4 and L5 on flexion which reduces on extens ion.
== END 2025-09-15 11:00 | disposition home or self-care (01) ==
LOC: RAD 11:03
PROVIDERS: PCP Nurse Practitioner Family; Visit Provider Student in an Organized Health Care Education/Training Program
DX: M47.817 Spondylosis without myelopathy or radiculopathy, lumbosacral region (principal); M47.812 Spondylosis without myelopathy or radiculopathy, cervical region; M51.369 Other intervertebral disc degeneration, lumbar region without mention of lumbar back pain or lower extremity pain; M47.816 Spondylosis without myelopathy or radiculopathy, lumbar region; M43.16 Spondylolisthesis, lumbar region
CPT/HCPCS: 72052; 72114